=== PATIENT | male | born 1970 | race Hispanic/Latino ===

== ENCOUNTER 2020-10-01 11:55 | Inpatient (IN) | payer MEDICAID, SELFPAY ==
[2020-10-01 12:36] LABS: #Lymphocytes 0.8 thou/uL (1.20-3.40); #Monocytes 0.9 thou/uL (0.11-0.59); #Neutrophils 12.8 thou/uL (1.40-6.50); %Basophils 0.2 % (0.0-1.0); %Eosinophils 0.1 % (0.0-10.0); %Lymphocytes 5.2 % (21.0-51.0); %Monocytes 6.4 % (0.0-10.0); %Neutrophils 88.1 % (42.0-75.0); Hemoglobin 15.3 g/dL (14.0-18.0); Mean Corpuscular HGB CONC 34.8 g/dL (32.0-36.0); Mean Corpuscular Hemoglobin 33.6 pg (27.0-31.0); Mean Corpuscular Volume 96.5 fL (78.0-98.0); Mean Platelet Volume 7.6 fL (7.4-10.4); Platelet Count 234 thou/uL (130-400); RBC Distribution Width 12.1 % (11.5-14.5); Red Blood Cell (RBC) Count 4.55 mill/uL (4.70-6.10); White Blood Cell (WBC) Count 14.5 thou/uL (4.8-10.8)
--- NOTE | 2020-10-01 12:37 | RAD ---
RADIOGRAPH CHEST 1 VIEW: DATE: 10/01/2020 HISTORY: 50-year-old male with altered mental status. Concern for aspiration. FINDINGS: Nonspecific small faint densities at bilateral lung bases. There are no consolidations, pulmonary destiny ma, pneumothorax, or cardiomegaly. The lateral costophrenic angles are sharp. IMPRESSION: No consolidation
[2020-10-01 12:46] LABS: Acetaminophen Less than 6.0 mcg/mL (10.0-30.0); Alcohol Less than 10 mg/dL (Less than 10); CK (CPK) 337 U/L (30-200); Salicylate Less than 8.0 mg/dL (15.0-30.0)
[2020-10-01 12:47] LABS: ALT (SGPT) 25 U/L (8-55); AST (SGOT) 29 U/L (5-34); Albumin 4.1 g/dL (3.5-5.0); Alkaline Phosphatase 114 U/L (40-110); Anion Gap 19 mmol/L (10-20); BUN (Urea Nitrogen) 19 mg/dL (8.4-25.7); Bilirubin, Total 1.2 mg/dL (0.2-1.2); Calc. Creatinine Clearance 0 mL/min (70-130); Calcium 8.8 mg/dL (7.8-10.44); Carbon Dioxide 25 mmol/L (22-29); Chloride 103 mmol/L (98-107); Globulin 3.8 g/dL (2.4-3.5); Glucose 381 mg/dL (70-105); Lipase 5 U/L (8-78); Potassium 4.2 mmol/L (3.5-5.1); Protein, Total 7.9 g/dL (6.0-8.3); Sodium 143 mmol/L (136-145)
[2020-10-01 13:08] LABS: Bilirubin Negative (Negative); Blood, Urine 2+ (Negative); Clarity Clear (Clear); Glucose, Urine (Dipstick) Greater than 1000 mg/dL (Negative); Ketone, Urine 80 mg/dL (Negative); Leukocyte Negative Leu/uL (Negative); Nitrite Negative (Negative); Protein, Urine (Dipstick) 200 mg/dL (Neg-Trace); RBC/HPF 0-3 HPF (0-3); Specific Gravity, Urine 1.036 (1.002-1.036); Squamous Epithelial None Seen HPF (0-3); Urobilinogen Normal mg/dL (Less than 2)
[2020-10-01 13:09] LABS: Bacteria/HPF 1+ HPF (None Seen)
--- NOTE | 2020-10-01 13:14 | CT ---
CT Brain WO Con: 10/01/2020 12:55 PM CLINICAL HISTORY: Altered mental status. IMAGING TECHNIQUE: Multiple CT images were obtained of the brain without IV contrast. COMPARISON: None. FINDINGS: BRAIN: Evidence of acute infarct: There is a large intraparenchymal hemorrhage centered within the left jose lamus measuring 4.5 x 2.7 cm with intraventricular extension. There is mild surrounding vasogenic edema. Evidence of chronic ischemic change:None. Evidence of intracranial hemorrhage: As above Evidence of brain volume loss:None. Evidence of midline shift: There is ivjy-vu-ipwqn midline shift of approximately 2 mm. Ventricles: There is intraventricular extension of the hemorrhage filling the left lateral ventricle with small amount of hemorrhage seen within the third ventricle and anterior horn of the right ventricle. There is some layered hemorrhage also present within the right posterior horn of the later al ventricle. SKULL: Intact. VISUALIZED PARANASAL SINUSES: There is a small air-fluid level within the right maxillary sinus. Mas toid air cells are clear. There is mild mucosal thickening in the ethmoid air cells. MASTOID AIR CELLS: Clear. EXTRACRANIAL SOFT TISSUES: Normal. IMPRESSION: Large intraparenchymal hemorrhage centered within the left thalamus with mild surrounding vasogenic e caprice and tllh-rx-bwhew midline shift of 1.2 mm. There is intraventricular extension of the hemorrhage within the third ventricle and lateral ventricles. Findings called to Dr. Chacon at 1:05 PM on October 01, 2020.
[2020-10-01 13:16] LABS: Amphetamine Not Detected (NotDetected); Barbiturates Screen Not Detected (NotDetected); Benzodiazepine Screen Not Detected (NotDetected); Cocaine Metabolite Screen Not Detected (NotDetected); Medtox Control Line Valid? VALID (VALID); Medtox Reader # READER 4; Methadone Not Detected (NotDetected); Methamphetamine Not Detected (NotDetected); Opiate Screen Not Detected (NotDetected); Oxycodone Screen Not Detected (NotDetected); Phencyclidine (PCP) Not Detected (NotDetected); THC/Cannabinoid Screen Not Detected (NotDetected); Tricyclic Screen Not Detected (NotDetected)
[2020-10-01] MEDS ORDERED: niCARdipine 20MG In NaCl 20 MG/200 ML BAG ONE ×3 (13:19→21:51)
[2020-10-01 13:24] LABS: INR-International Normal Ratio 1.1; PTT 25.8 sec (22.9-36.1); Prothrombin Time 14.7 sec (12.0-14.7)
--- NOTE | 2020-10-01 13:25 | CT ---
CT ANGIOGRAM OF BRAIN WITH CONTRAST AND 3D REFORMATTED IMAGING: DATE: 10/01/2020 1:01 PM HISTORY: Intraparenchymal hemorrhage COMPARISON: Noncontrast CT of the brain dated 09/23/2020 TECHNIQUE: Iodinated IV contrast injected. Bolus chasing technique scan performed through the head. Coronal and sagittal 3-D MIP reconstructions. FINDINGS: Right ICA: There is mild atherosclerotic irregularity involving the petrous segment of the right ICA . There is mumt-jy-usmqdyhu narrowing involving the distal cavernous right ICA likely related to atherosclerotic plaque. Right MCA: Patent. Right CARMEN: Patent. ACOM: Patent. Left ICA: There is moderate narrowing involving the proximal cavernous left ICA likely due to eccent eddie plaque. There is mild irregularity involving the petrous segment of the left ICA. Left MCA: Patent. Left CARMEN: Patent. PCOMs: Patent. Vertebral arteries: The left vertebral artery is diminutive but patent. Right vertebral artery is do minant and patent. Basilar Artery: Patent. patron attendant: Patent. Incidentals: Large intracranial hemorrhage centered within the left thalamus with intraventricular e xtension and mild left right midline shift as detailed in the noncontrast CT of the brain IMPRESSION: 1. Moderate narrowing involving the proximal left cavernous ICA likely related to eccentric plaque. T here is mild atherosclerotic irregularity involving the petrous segment of the left ICA. There is mild irregularity involving the petrous segment of the right ICA with mdwi-iu-udedvymi narrowing of t he distal right cavernous ICA. 2. Large intraparenchymal hemorrhage centered within the left thalamus with intraventricular extensio n and pybu-ru-gjkpt midline shift.
[2020-10-01] MEDS ORDERED: Multivitamins, Adult 10 ML, Thiamine HCl 100 MG, Folic Acid 1 MG in Dextrose 5 %-0.45 %... IV SCH (13:45)
--- NOTE | 2020-10-01 14:14 | PDOC.HHP ---
Hospitalist HPI Found down History of Present Illness: Patient is a 50-year-old male with an unknown past medical history. Patient's brother is here and gives the history. Patient's brother reports that the patient was at work yesterday as normal. Apparently around 7 PM he sent a blank text to one of his friends. His friend responded but the patient never replied again. This morning the patient's brother who lives in the same neighborhood, was driving out to work and noticed his brother's truck was still in the driveway. He had a kaplan to his home so he let himself in and found his brother lying on the ground. He says he was very cold and had incontinence of his bowels. He said the patient was minimally responsive. He tried to put a jacket on him because he was cold and noted that his right arm would not move. He describes it as being in more of a flexion contracture type position and stiff. As stated he does not know the patient's medical history but does report that the patient drinks a large amount of alcohol on a daily basis. ED Course: In the emergency department patient had a CT scan of the head revealing a significant parenchymal bleed with intraventricular hemorrhage. Patient was noted to be significantly hypertensive with a blood pressure of 173/83 peaking at 188/121. He was started on a Cardene drip and his blood pressure has improved. Patient has essentially remained unresponsive. Allergies/Adverse Reactions: Allergy/AdvReac Type Severity Reaction Status Date / Time No Allergy Information Allergy Unverified 10/01/20 12:11 Available Comments: There are no known home medications. Believe the patient likely was not on any. Past History: PMHx: None other than alcohol use PSHx: None known FHx: The patient's brother reports that their mother has hypertension. Their father about 7 years ago but he does not know details. Social: Patient lives alone. He is single. His brother is here giving his reported history. As stated he reports the patient drinks a great deal of beer every day. He says the patient smokes cigars for very brief period of time but is not otherwise a smoker. He is unaware of any drug history. 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 Hospitalist LUCINDA ROS ROS unobtainable: due to mental status Hospitalist Exam General - other findings: Unresponsive. Spontaneous breathing. Eye - other findings: Pupils are symmetric and constrict Neck: supple, symmetric, no JVD Heart: RRR, no murmur, no gallops, no rubs, normal peripheral pulses Respiratory: CTAB, no wheezes, no rales, no ronchi, normal chest expansion, no tachypnea, normal percussion Gastrointestinal: soft, non-tender, non-distended, normal bowel sounds, no palpable masses, no hepatomegaly, no splenomegaly, no bruit Extremities: no cyanosis, no clubbing, no edema Skin: normal turgor, no lesions, no rashes Neurological - other findings: Unresponsive. Hospitalist Results Result Diagrams: 10/01/20 12:10/01/20 12:21 Lab results: Laboratory Last Values WBC 14.5 thou/uL (4.8-10.8) H 10/01/20 12: RBC 4.55 mill/uL (4.70-6.10) L 10/01/20 12: Hgb 15.3 g/dL (14.0-18.0) 10/01/20 12: Hct 43.9 % (42.0-52.0) 10/01/20 12:21 MCV 96.5 fL (78.0-98.0) 10/01/20 12: MCH 33.6 pg (27.0-31.0) H 10/01/20 12: MCHC 34.8 g/dL (32.0-36.0) 10/01/20 12: RDW 12.1 % (11.5-14.5) 10/01/20 12: Plt Count 234 thou/uL (130-400) 10/01/20 12:21 MPV 7.6 fL (7.4-10.4) 10/01/20 12: Neutrophils % 88.1 % (42.0-75.0) H 10/01/20 12: Lymphocytes % 5.2 % (21.0-51.0) L 10/01/20 12: Monocytes % 6.4 % (0.0-10.0) 10/01/20 12: Eosinophils % 0.1 % (0.0-10.0) 10/01/20 12: Basophils % 0.2 % (0.0-1.0) 10/01/20 12:21 Neutrophils # 12.8 thou/uL (1.40-6.50) H 10/01/20 12:21 Lymphocytes # 0.8 thou/uL (1.20-3.40) L 10/01/20 12:21 Monocytes # 0.9 thou/uL (0.11-0.59) H 10/01/20 12:21 Eosinophils # 0.0 thou/uL (0.0-0.7) 10/01/20 12: Basophils # 0.0 thou/uL (0.0-0.2) 10/01/20 12:21 PT 14.7 sec (12.0-14.7) 10/01/20 12: INR 1.1 10/01/20 12:21 APTT 25.8 sec (22.9-36.1) 10/01/20 12:21 Sodium 143 mmol/L (136-145) 10/01/20 12:21 Potassium 4.2 mmol/L (3.5-5.1) 10/01/20 12:21 Chloride 103 mmol/L (98-107) 10/01/20 12:21 Carbon Dioxide 25 mmol/L (22-29) 10/01/20 12:21 Anion Gap 19 mmol/L (10-20) 10/01/20 12:21 BUN 19 mg/dL (8.4-25.7) 10/01/20 12:21 Creatinine 0.84 mg/dL (0.7-1.3) 10/01/20 12:21 Estimated GFR (MDRD) Greater than 90 10/01/20 12:21 Glucose 381 mg/dL (70-105) H 10/01/20 12:21 Calcium 8.8 mg/dL (7.8-10.44) 10/01/20 12:21 Total Bilirubin 1.2 mg/dL (0.2-1.2) 10/01/20 12:21 AST 29 U/L (5-34) 10/01/20 12:21 ALT 25 U/L (8-55) 10/01/20 12:21 Alkaline Phosphatase 114 U/L (40-110) H 10/01/20 12:21 Ammonia 40 umol/L (18-72) 10/01/20 12:21 Creatine Kinase 337 U/L (30-200) H 10/01/20 12:21 Troponin I Less than 0.010 ng/mL (< 0.028) 10/01/20 12: Serum Total Protein 7.9 g/dL (6.0-8.3) 10/01/20 12: Albumin 4.1 g/dL (3.5-5.0) 10/01/20 12: Globulin 3.8 g/dL (2.4-3.5) H 10/01/20 12:21 Albumin/Globulin Ratio 1.1 g/dL (1.2-2.2) L 10/01/20 12: Lipase 5 U/L (8-78) L 10/01/20 12: TSH 3rd Generation 0.2656 uIU/mL (0.35-4.94) L 10/01/20 12:21 Urine Color Light-Yellow (Yellow) 10/01/20 12:45 Urine Clarity Clear (Clear) 10/01/20 12:45 Urine pH 6.0 (5.0-9.0) 10/01/20 12:45 Ur Specific [place] 1.036 (1.002-1.036) 10/01/20 12:45 Urine Protein 200 mg/dL (Neg-Trace) A 10/01/20 12:45 Urine Glucose (UA) Greater than 1000 mg/dL (Negative) A 10/01/20 12:45 Urine Ketones 80 mg/dL (Negative) A 10/01/20 12:45 Urine Blood 2+ (Negative) A 10/01/20 12:45 Urine Nitrite Negative (Negative) 10/01/20 12:45 Urine Bilirubin Negative (Negative) 10/01/20 12:45 Urine Urobilinogen Normal mg/dL (Less than 2) 10/01/20 12:45 Ur Leukocyte Esterase Negative Papo/uL (Negative) 10/01/20 12:45 Urine RBC 0-3 HPF (0-3) 10/01/20 12:45 Urine WBC 4-6 HPF (0-3) A 10/01/20 12:45 Ur Squamous Epith Cells None Seen HPF (0-3) 10/01/20 12:45 Urine Bacteria 1+ HPF (None Seen) A 10/01/20 12:45 Hyaline Casts 0-3 LPF (0-3) 10/01/20 12:45 Salicylates Less than 8.0 mg/dL (15.0-30.0) L 10/01/20 12:21 Urine Opiates Screen Not Detected (NotDetected) 10/01/20 12:45 Ur Oxycodone Screen Not Detected (NotDetected) 10/01/20 12:45 Urine Methadone Screen Not Detected (NotDetected) 10/01/20 12:45 Ur Propoxyphene Screen Not Detected (NotDetected) 10/01/20 12:45 Acetaminophen Less than 6.0 mcg/mL (10.0-30.0) L 10/01/20 12:21 Ur Barbiturates Screen Not Detected (NotDetected) 10/01/20 12:45 Ur Tricyclics Screen Not Detected (NotDetected) 10/01/20 12:45 Ur Phencyclidine Scrn Not Detected (NotDetected) 10/01/20 12:45 Ur Amphetamines Screen Not Detected (NotDetected) 10/01/20 12:45 U Methamphetamines Scrn Not Detected (NotDetected) 10/01/20 12:45 U Benzodiazepines Scrn Not Detected (NotDetected) 10/01/20 12:45 U Cocaine Metab Screen Not Detected (NotDetected) 10/01/20 12:45 U Cannabinoids Screen Not Detected (NotDetected) 10/01/20 12:45 Drug Screen Comment () 10/01/20 12:45 Plasma Alcohol Less than 10 mg/dL (Less than 10) 10/01/20 12:21 CT scan - head Status: image reviewed by me, report reviewed by me Additional Comments: Large intraparenchymal hemorrhage centered within the left thalamus with mild surrounding vasogenic edema and cfiv-fw-[id number] midline shift of 1.2 mm. There is intraventricular extension of the hemorrhage within the third ventricle and lateral ventricles. Other Status: report reviewed by me Additional Comments: CTA head neck 1. Moderate narrowing involving the proximal left cavernous ICA likely related to eccentric plaque. There is mild atherosclerotic irregularity involving the petrous segment of the left ICA. There is mild irregularity involving the petrous segment of the right ICA with ajmi-xm-cabzqxyz narrowing of the distal right cavernous ICA. 2. Large intraparenchymal hemorrhage centered within the left thalamus with intraventricular extension and qzgx-sx-dbadv midline shift. Chest x-ray Status: report reviewed by me Hospitalist H&P A/P (1) ICH (intracerebral hemorrhage) Code(s): I61.9 - NONTRAUMATIC INTRACEREBRAL HEMORRHAGE, UNSPECIFIED Status: Acute (2) Alcohol abuse Code(s): F10.10 - ALCOHOL ABUSE, UNCOMPLICATED Status: Acute (3) Hyperglycemia Code(s): R73.9 - HYPERGLYCEMIA, UNSPECIFIED Status: Acute (4) Leukocytosis Code(s): D72.829 - ELEVATED WHITE BLOOD CELL COUNT, UNSPECIFIED Status: Acute Plan: ICH: Also has some intraventricular bleed with 1.2 mm of midline shift. Neurosurgery consulted. ER physician has reached out to neurosurgery who is in a case now. We will continue with Cardene drip in order to maintain adequate blood pressure control. IV fluids as he will remain n.p.o. Stroke team consult. Avoid anticoagulation. Alcohol abuse: Patient's brother reports that patient consumes a significant amount of beer daily. We will give folate and thiamine supplementation. May need to monitor for evidence of physical withdrawal symptoms. He may be at higher risk of seizure due to the alcohol and the bleed. Hyperglycemia: There is no history of diabetes mellitus that we are aware of for this patient. We will perform Accu-Cheks and sliding scale insulin. Leukocytosis: Likely reactive to the bleed. No evidence of infection. No antibiotics will be initiated. DVT prophylaxis: Avoid anticoagulation. SCDs. PUD prophylaxis: Pepcid IV twice daily.
[2020-10-01] MEDS ORDERED: Dextrose 5% in Water 1,000 ML IV PRN (14:27)
[2020-10-01] MEDS ORDERED: Dextrose 50% Abboject 50 ML SYRINGE SLOW IVP PRN (14:27)
[2020-10-01 14:43] LABS: SARS-CoV-2 NAA Rapid Test Not Detected (NotDetected)
[2020-10-01] MEDS ORDERED: Thiamine HCl 200 MG/2 ML VIAL SLOW IVP SCH (15:00)
[2020-10-01] MEDS: Sodium Chloride 0.9% 1,000 ML IV SCH (15:08)
[2020-10-01] MEDS ORDERED: Famotidine/PF 20 mg/2ml Vial ONE (20:51)
[2020-10-01] MEDS: Famotidine/PF 20 mg/2ml Vial SLOW IVP SCH (20:59)
[2020-10-01] MEDS: niCARdipine 25 MG in Sodium Chloride 0.9% 250 ML 240 ML IVPB PRN (21:50)
--- NOTE | 2020-10-01 23:29 | CON ---
DATE OF CONSULTATION: 10/01/2020 HISTORY OF PRESENT ILLNESS: Mr. Jarrett is a 50-year-old gentleman who was found down by his brother today around 11 a.m. Brother states that his brother (the patient) soiled himself. He was very concerned about his brother due to not replying to his text or phone calls, so he went to see what was going on. Head CT indicated a significant parenchymal bleed with intraventricular hemorrhage. ED doctor indicated that the BP was noted to be 270. Cardene drip was then started in which he was able to get his BP down to 175. REVIEW OF SYSTEMS: Not obtainable due to mental status. PAST MEDICAL HISTORY: Unable to obtain. PAST SURGICAL HISTORY: Unable to obtain. SOCIAL HISTORY: Unable to obtain. Brother states that he has a history of alcoholism. MEDICATIONS: No recorded medications. ALLERGIES: NO KNOWN DRUG ALLERGIES, UNCONFIRMED. PHYSICAL EXAMINATION: VITALS: BP 188/121, pulse 100, temperature 98.6. GENERAL: Unresponsive with spontaneous breathing. HEENT: Eyes, pupils are symmetric and constricted. Not reactive to light. NECK: Soft, supple. No masses are noted. NEUROLOGICAL: High opening to voice. Verbal response, confused. Motor response, withdrawals to pain. LABORATORY DATA: WBC 14.5, platelets 234. PT 14.7, INR 1.1, PTT 25.8. Sodium 143. Toxicology negative. Urine glucose greater than 1000. IMAGING DATA: Head CT, significant parenchymal bleed with intraventricular hemorrhage. ASSESSMENT: 1. Intraparenchymal hemorrhage. 2. Alcohol abuse. 3. Hypertension. 4. Glucose in the urine. PLAN: Continue Cardene drip. BP control, SBP less than [address] of the brain in the morning. If scan shows no improvement or change, we will transfer care to Medicine Service. Supportive care. No intracranial surgery at this time. We will have him follow up in 2 to 3 weeks in our clinic and repeat scan prior to the visit. Job ID: [id number] [facility]
[2020-10-02 05:02] LABS: #Basophils 0.1 thou/uL (0.0-0.2); #Lymphocytes 1.7 thou/uL (1.20-3.40); #Monocytes 1.1 thou/uL (0.11-0.59); #Neutrophils 8.7 thou/uL (1.40-6.50); %Basophils 0.6 % (0.0-1.0); %Eosinophils 0.3 % (0.0-10.0); %Lymphocytes 14.8 % (21.0-51.0); %Monocytes 9.7 % (0.0-10.0); %Neutrophils 74.7 % (42.0-75.0); Hemoglobin 14.2 g/dL (14.0-18.0); Mean Corpuscular HGB CONC 33.7 g/dL (32.0-36.0); Mean Corpuscular Hemoglobin 32.7 pg (27.0-31.0); Mean Platelet Volume 7.7 fL (7.4-10.4); Platelet Count 212 thou/uL (130-400); Red Blood Cell (RBC) Count 4.33 mill/uL (4.70-6.10); White Blood Cell (WBC) Count 11.7 thou/uL (4.8-10.8)
[2020-10-02] MEDS: Sodium Chloride 0.9% 1,000 ML IV SCH ×2 (05:31→21:04)
[2020-10-02 05:40] LABS: Hemoglobin A1c 10.4 % (4.0-6.0)
[2020-10-02 05:53] LABS: Anion Gap 15 mmol/L (10-20); BUN (Urea Nitrogen) 17 mg/dL (8.4-25.7); CK (CPK) 678 U/L (30-200); Calc. Creatinine Clearance 0 mL/min (70-130); Calcium 8.5 mg/dL (7.8-10.44); Carbon Dioxide 23 mmol/L (22-29); Chloride 109 mmol/L (98-107); Glucose 254 mg/dL (70-105); Potassium 3.5 mmol/L (3.5-5.1); Sodium 143 mmol/L (136-145)
[2020-10-02] MEDS: niCARdipine 25 MG in Sodium Chloride 0.9% 250 ML 240 ML IVPB PRN (05:57)
--- NOTE | 2020-10-02 07:24 | CT ---
PRELIMINARY REPORT/[facility]/EMERGENCY AFTER HOURS PROCEDURE: EXAM: CT Head Without Intravenous Contrast. CLINICAL HISTORY: F/U ICH TECHNIQUE: Axial computed tomography images of the head/brain without intravenous contrast. COMPARISON: 10/01/2020 Findings: Ventriculomegaly is not significantly changed. There is approximately 6 mm of lsod-do-avtfd shift at the level of the foramen of Garcia axial image 30. Volume of intraventricular hemorrhage is unchanged. Left hemorrhage measuring 4.2 x 2.3 cm is not significantly changed. No new intracrania l hemorrhage. No transtentorial or tonsillar herniation. Mild paranasal sinus disease is greatest right maxillary sinus is. The mastoid air cells. Normal spherical shape of the globes. Retrobulbar fa t is unremarkable. IMPRESSION: Intraventricular hemorrhage and ventriculomegaly are not significantly changed. Clinical correlation for hydrocephalus is requested. Left thalamic hemorrhage measuring 4.2 x 2.3 cm is slightly smaller. No new intracranial hemorrhage. No transtentorial or tonsillar herniation. ELECTRONICALLY SIGNED BY: Uriah Solis MD Oct 02, 2020 5:51:39 AM DEPUTY REGISTER OF DEEDS FINAL REPORT HEAD CT WITHOUT CONTRAST: HISTORY: Follow-up intracranial hemorrhage. COMPARISON: 10/01/2020. FINDINGS: Hemorrhage: Several intracranial hemorrhages centered in the left deep pugh matter structures with st able intraventricular hemorrhage. There is a small component of subarachnoid blood involving the left and right sulci. Brain parenchyma: Cortical pugh-white matter differentiation is preserved. No mass effect or midline shift. Basilar cisterns are patent.Stable hypoattenuation adjacent to the left deep pugh matter structure infarct suggesting edema. Stable oxys-nj-dqoiu subfalcine herniation. Ventricular system: Ventricles and sulci are patent and symmetric. Calvarium: Intact. Sinuses and mastoid air cells: Mild mucosal disease of the paranasal sinuses. IMPRESSION: 1. This report is in agreement with initial report by [facility]. 2. Stable intracranial hemorrhage. Transcribed Date/Time: 10/02/2020 7:52 AM
--- NOTE | 2020-10-02 07:41 | PRG ---
DATE OF SERVICE: 10/02/2020 I personally interviewed and examined the patient, agree with documentation of Delta Silva PA-C, dated 10/01/2020. Briefly, Amari Blanco is a 50-year-old gentleman found down by his brother yesterday and brought to the emergency department. He had some change in his mental status. CT scan of the brain showed a left thalamic and midbrain hemorrhage spontaneous. It was treated as a hypertensive hemorrhage and he has been observed carefully overnight. The ICU has been full and he has been in the ER since his arrival. No events were reported overnight. Blood pressure is in the 130s when I saw him this morning. He is on a Cardene drip. Mr. Kolby Blanco wakes. He tells me he speaks Spanish. He says a word or two. He does follow commands. He is hemiplegic on the right or at least densely hemiparetic. The left side was better. The sodium this morning is 143. The white blood cell count is 11.7, fluids are going at a high rate of 175 mL an hour total. This morning, CT scan shows stability of the hemorrhage. There is no obvious development of hydrocephalus, although the ventricles may be slightly larger than yesterday. Clinically, Mr. Kolby Blanco is stable from his admission. His blood pressure is being controlled with IV medication. He will need to be watched through the weekend to ensure that any santa hematoma swelling does not obstruct CSF. If he makes it to Monday in stable neurological condition, he can be transferred to rehab for recovery from this hemorrhagic stroke. Job ID: [id number] [facility]
[2020-10-02] MEDS ORDERED: niCARdipine 20MG In NaCl 20 MG/200 ML BAG ONE (08:51)
[2020-10-02] MEDS ORDERED: Famotidine/PF 20 mg/2ml Vial ONE ×2 (10:20→21:08)
[2020-10-02] MEDS: Famotidine/PF 20 mg/2ml Vial SLOW IVP SCH ×2 (10:23→21:15)
[2020-10-02] MEDS ORDERED: Morphine 2 MG/ML VIAL SLOW IVP PRN (11:01)
--- NOTE | 2020-10-02 13:45 | PDOC.HOSPP ---
- Subjective Encounter Date: 10/02/20 Encounter Time: 13:43 Subjective: patient seen on f/u for ich. currently on cardene drip to control b/p is still npo awaiting for speech evaluation. patient has wax and weaning of orientation. is complaining of headache is able to follow simple instruction - Objective Vital Signs & Weight: Vital Signs (12 hours) Temp Pulse Resp BP BP Pulse Ox 10/02/20 12:04 126/76 10/02/20 11:00 99.0 F 90 16 125/70 95 10/02/20 10:00 94 16 119/77 96 10/02/20 09:00 82 15 117/66 98 10/02/20 08:00 83 15 132/65 96 10/02/20 07:05 98.7 F 87 15 129/73 99 Result Diagrams: 10/02/20 04:40 10/02/20 04:40 Additional Labs: Accuchecks 10/02/20 10/02/20 10/01/20 07:49 01:23 21:19 POC Glucose 283 H 259 H 307 H 10/01/20 12:04 POC Glucose 410 H Hospitalist ROS - Review of Systems ROS unobtainable: due to mental status - Medication Medications: Active Medications Generic Name Dose Route Start Last Admin Trade Name Freq PRN Reason Stop Dose Admin Famotidine 20 mg 10/01/20 21:00 10/02/20 10:23 Famotidine/Pf 20 Mg/2ml Vial SLOW IVP 20 mg Q12HR BRII Administration Sodium Chloride 1,000 mls @ 75 mls/hr 10/01/20 14:00 10/02/20 05:31 Normal Saline 0.9% IV 1,000 mls .[id number] BRII Administration Nicardipine HCl 25 mg/ Sodium 250 mls @ 0 mls/hr 10/01/20 13:59 10/02/20 05:57 Chloride IVPB 250 mls INF PRN Administration SBP > 140 Protocol Titrate Hospitalist Exam Vitals: Vital Signs (12 hours) Temp Pulse Resp BP BP Pulse Ox 10/02/20 12:04 126/76 10/02/20 11:00 99.0 F 90 16 125/70 95 10/02/20 10:00 94 16 119/77 96 10/02/20 09:00 82 15 117/66 98 10/02/20 08:00 83 15 132/65 96 10/02/20 07:05 98.7 F 87 15 129/73 99 General Appearance: NAD, awake alert Eye: PERRL, anicteric sclera ENT: normocephalic atraumatic, no oropharyngeal lesions Neck: supple, symmetric, no JVD, no thyromegaly Heart: RRR, no murmur, no gallops Respiratory: CTAB, no wheezes, no rales Gastrointestinal: soft, non-tender, non-distended Extremities: no cyanosis, no clubbing, no edema Skin: normal turgor, no lesions, no rashes Neurological: hemiplegia Musculoskeletal: normal tone, normal strength Psychiatric: normal affect, oriented to person Hosp A/P (1) ICH (intracerebral hemorrhage) Code(s): I61.9 - NONTRAUMATIC INTRACEREBRAL HEMORRHAGE, UNSPECIFIED Status: Acute (2) Alcohol abuse Code(s): F10.10 - ALCOHOL ABUSE, UNCOMPLICATED Status: Acute (3) Hyperglycemia Code(s): R73.9 - HYPERGLYCEMIA, UNSPECIFIED Status: Acute (4) Leukocytosis Code(s): D72.829 - ELEVATED WHITE BLOOD CELL COUNT, UNSPECIFIED Status: Acute - Plan ICH - has some intraventricular bleed with 1.2 mm of midline shift. - Neurosurgery consulted. - recommended observation over the weekend - on cardene drip, will continue - IV fluids as he will remain n.p.o until seen be speech - Avoid anticoagulation - pt / ot / speech Alcohol abuse - hx of alcohol abuse - folate and thiamine supplementation. - monitor withdrawal / seizures Hyperglycemia - a1c 10 - acc+ss Leukocytosis - Likely reactive to the bleed. - No evidence of infection.
[2020-10-02] MEDS: Thiamine HCl 200 MG/2 ML VIAL SLOW IVP SCH (14:57)
[2020-10-02] MEDS: niCARdipine 50 MG in Sodium Chloride 0.9% 250 ML 230 ML IVPB PRN (23:45)
[2020-10-03] MEDS: Sodium Chloride 0.9% 1,000 ML IV SCH (06:36)
[2020-10-03] MEDS: HumaLOG 300 UNITS/3 ML VIAL SC PRN ×3 (06:37→15:59)
[2020-10-03] MEDS: niCARdipine 25 MG in Sodium Chloride 0.9% 250 ML 240 ML IVPB PRN (08:40)
[2020-10-03] MEDS: Famotidine/PF 20 mg/2ml Vial SLOW IVP SCH ×2 (10:04→23:27)
[2020-10-03] MEDS ORDERED: Electrolyte Replacement Protocol 1 EACH FS SCH (10:30)
[2020-10-03 11:22] LABS: #Lymphocytes 1.3 thou/uL (1.20-3.40); #Monocytes 1.3 thou/uL (0.11-0.59); #Neutrophils 13.1 thou/uL (1.40-6.50); %Basophils 0.2 % (0.0-1.0); %Eosinophils 0.2 % (0.0-10.0); %Lymphocytes 8.4 % (21.0-51.0); %Neutrophils 83.2 % (42.0-75.0); Hemoglobin 14.6 g/dL (14.0-18.0); Mean Corpuscular HGB CONC 34.3 g/dL (32.0-36.0); Mean Corpuscular Hemoglobin 33.9 pg (27.0-31.0); Mean Corpuscular Volume 98.7 fL (78.0-98.0); Mean Platelet Volume 7.7 fL (7.4-10.4); Platelet Count 183 thou/uL (130-400); RBC Distribution Width 11.8 % (11.5-14.5); White Blood Cell (WBC) Count 15.8 thou/uL (4.8-10.8)
[2020-10-03] MEDS: Dextrose 5 % And 0.9 % NaCl 1,000 ML IV SCH (11:41)
[2020-10-03 11:45] LABS: ALT (SGPT) 20 U/L (8-55); AST (SGOT) 26 U/L (5-34); Albumin 3.3 g/dL (3.5-5.0); Alkaline Phosphatase 90 U/L (40-110); Anion Gap 19 mmol/L (10-20); BUN (Urea Nitrogen) 21 mg/dL (8.4-25.7); Bilirubin, Total 1.2 mg/dL (0.2-1.2); Calc. Creatinine Clearance 122 mL/min (70-130); Calcium 8.5 mg/dL (7.8-10.44); Carbon Dioxide 17 mmol/L (22-29); Chloride 113 mmol/L (98-107); Globulin 3.8 g/dL (2.4-3.5); Glucose 223 mg/dL (70-105); Magnesium 2.2 mg/dL (1.6-2.6); Phosphorus 2.4 mg/dL (2.3-4.7); Potassium 3.5 mmol/L (3.5-5.1); Protein, Total 7.1 g/dL (6.0-8.3); Sodium 145 mmol/L (136-145)
--- NOTE | 2020-10-03 11:48 | PRG ---
DATE OF SERVICE: 10/03/2020 Mr. Jarrett is hemiplegic in the right side and localizes in the left side. He does open his eyes weakly to voice. He appears to be somewhat somnolent, however, and a head CT had not been done yet this morning. We will get this as he is at high risk for obstructive hydrocephalus. I should note that his sodium yesterday was 143. His most recently recorded blood pressure was normal at 123/72. We will follow up on the head CT to make sure he does not need an EVD. Job ID: [id number]
--- NOTE | 2020-10-03 12:33 | CT ---
CT BRAIN NONCONTRAST: DATE: 10/03/2020 HISTORY: 50-year-old male follow-up intracranial hemorrhage COMPARISON: 10/02/2020 FINDINGS: Large intra-axial hematoma centered in left thalamus, spilling into the third ventricle,, with large intraventricular hematoma throughout most of the left lateral ventricle, and posterior dependent portions of right lateral ventricle. Mild subfalcine herniation. Mild to moderate ventriculomegaly suggestive of partial noncommunicating obstructive hydrocephalus. New development of tiny faint amount of subarachnoid hemorrhage in the right parietal sulci laterally . New tiny tiny focus in the right posterior paramedian upper occipital gyrus close to the parieto-occi pital fissure, either cortical or subarachnoid. IMPRESSION: 1) new small amount of right lateral parietal subarachnoid hemorrhage. 2) new tiny focus of right paramedian far posterior upper occipital, probably cortex, less likely sub arachnoid. 3) no significant interval change in the large left thalamic intra-axial hematoma and significant vol ume of intraventricular hematoma, left greater than right. 4) no interval change in the mild noncommunicating obstructive hydrocephalus.
[2020-10-03] MEDS ORDERED: Potassium Chloride 40 MEQ in Sodium Chloride 0.9% 250 ML 250 ML IVPB SCH (13:00)
--- NOTE | 2020-10-03 13:50 | PDOC.HOSPP ---
- Subjective Encounter Date: 10/03/20 Encounter Time: 11:00 non-verbal Subjective: Patient seen and examined for intracranial bleed. Somnolent. No new focal deficit per RN. Remains on Cardene drip. - Objective Vital Signs & Weight: Vital Signs (12 hours) Temp Pulse Ox 10/03/20 07:10 96 10/03/20 05:00 98.7 F 10/03/20 02:10 97 Weight Admit Weight 151 lb 0.266 oz Weight 151 lb 14.376 oz Most Recent Monitor Data Heart Rate from ECG 84 NIBP 125/71 NIBP BP-Mean 89 Respiration from ECG 17 SpO2 96 I&O: 10/02/20 10/03/20 10/04/20 06:59 06:59 06:59 Intake Total 775.0 Output Total 500 Balance 275.0 Result Diagrams: 10/03/20 11:14 10/03/20 11:14 Additional Labs: Accuchecks 10/03/20 10/03/20 10/02/20 10:27 06:30 23:23 POC Glucose 208 H 210 H 237 H 10/02/20 10/02/20 20:30 14:25 POC Glucose 241 H 248 H Abnormal Lab Results - Last 48 hrs 10/02/20 04:40: Chloride 109 H, Creatinine 0.68 L, Creatine Kinase 678 H 10/02/20 04:40: WBC 11.7 H, RBC 4.33 L, MCH 32.7 H, Lymphocytes % 14.8 L, Neutrophils # 8.7 H, Monocytes # 1.1 H 10/02/20 04:40: Hemoglobin A1c 10.4 H 10/03/20 11:14: Chloride 113 H, Carbon Dioxide 17 L, Creatinine 0.69 L, Albumin 3.3 L, Globulin 3.8 H, Albumin/Globulin Ratio 0.9 L 10/03/20 11:14: WBC 15.8 H, RBC 4.30 L, MCV 98.7 H, MCH 33.9 H, Neutrophils % 83.2 H, Lymphocytes % 8.4 L, Neutrophils # 13.1 H, Monocytes # 1.3 H EKG Reviewed by me: Yes (Sinus rhythm on telemetry) Hospitalist ROS - Review of Systems ROS unobtainable: due to mental status - Medication Medications: Active Medications Generic Name Dose Route Start Last Admin Trade Name Freq PRN Reason Stop Dose Admin Famotidine 20 mg 10/01/20 21:00 10/03/20 10:04 Famotidine/Pf 20 Mg/2ml Vial SLOW IVP 20 mg Q12HR BRII Administration Nicardipine HCl 25 mg/ Sodium 250 mls @ 0 mls/hr 10/01/20 13:59 10/03/20 08:40 Chloride IVPB 250 mls INF PRN Administration SBP > 140 Protocol Titrate Nicardipine HCl 50 mg/ Sodium 250 mls @ 0 mls/hr 10/02/20 23:17 10/02/20 23:45 Chloride IVPB 250 mls INF PRN Administration SBP > 140 Protocol Titrate Dextrose/Sodium Chloride 1,000 mls @ 75 mls/hr 10/03/20 10:30 10/03/20 11:41 D5 0.9% Ns IV 1,000 mls .[id number] BRII Administration Potassium Chloride 40 meq/ 270 mls @ 67.5 mls/hr 10/03/20 13:00 10/03/20 13:40 Sodium Chloride IVPB 10/03/20 16:59 270 mls NOW BRII Administration Insulin Human Lispro 0 units 10/01/20 14:27 10/03/20 10:29 Humalog 300 Units/3 Ml Vial SC 3 unit .MILD SLIDING SCALE PRN Administration Mild Correctional Scale Thiamine HCl 100 mg 10/02/20 15:00 10/02/20 14:57 Thiamine Hcl 200 Mg/2 Ml Vial SLOW IVP 100 mg Q24HR BRII Administration Hospitalist Exam Vitals: Vital Signs (12 hours) Temp Pulse Ox 10/03/20 07:10 96 10/03/20 05:00 98.7 F 10/03/20 02:10 97 Weight Admit Weight 151 lb 0.266 oz Weight 151 lb 14.376 oz Most Recent Monitor Data Heart Rate from ECG 84 NIBP 125/71 NIBP BP-Mean 89 Respiration from ECG 17 SpO2 96 General Appearance: NAD Neck: supple, no JVD Heart: RRR, no gallops Respiratory: no wheezes, no ronchi Gastrointestinal: soft, normal bowel sounds, no guarding, no rigidity Extremities: no cyanosis, no clubbing Neurological - other findings: Neuro/psychexam limited due to current mentation Musculoskeletal: generalized weakness Hosp A/P - Plan 50-year-old male with unknown past history was brought in on 10/01 to the emergency room with altered mentation. CT scan of the brain was consistent with large intraparenchymal hemorrhage centered within the left thalamus with mild surrounding vasogenic edema with midline shift of 1.[address] angiogram of the brain was negative for aneurysm. Repeat CT brain next morning showed similar findings. He was started on Cardene drip. Impression: Encephalopathy due to large left thalamic bleed with midline shiftsuspected due to uncontrolled hypertension Uncontrolled diabetes mellitus type 2 with A1c of 10.4 History of alcohol abuse Hypokalemia Plan: Change IV fluid to D5 NS. Add NPH. Continue Cardene drip. Replace potassium. Recheck CK in a.m. Continue thiamine. Continue GI prophylaxis. A.m. labs. Patient will probably need NG tube for oral antihypertensives. Continue other medications as above. I attempted to call the family with no answer.
[2020-10-03] MEDS: Thiamine HCl 200 MG/2 ML VIAL SLOW IVP SCH (15:54)
[2020-10-03] MEDS ORDERED: NPH, Human Insulin Isophane 300 UNIT/3 ML VIAL SC SCH (16:45)
--- NOTE | 2020-10-03 16:52 | PDOC.EEG ---
Neurology EEG Report - Report Report: This EEG was performed using 24 channel [employer] video EEG machine with 24 disc electrodes. This was an extended 2 hours 7 minutes of inpatient video EEG recording. Digital analysis of the EEG was done for spike and seizure detection which revealed no abnormalities. Background: The posterior background rhythm is not observed. Hyperventilation: Not performed. Photic Stimulation: No significant response. Sleep: No stage change is observed. EEG Diagnosis: Generalized irregular theta delta activity seen during the recording. Absence of posterior background rhythm. Clinical Interpretation: This EEG is consistent with moderate generalized nonspecific cerebral dysfunction. No electrographic seizures captured during the recording
[2020-10-03] MEDS: niCARdipine 50 MG in Sodium Chloride 0.9% 250 ML 230 ML IVPB PRN (18:44)
[2020-10-03] MEDS: NPH, Human Insulin Isophane 300 UNIT/3 ML VIAL SC SCH (23:27)
--- NOTE | 2020-10-04 00:40 | CON ---
NEUROLOGY CONSULTATION DATE OF CONSULTATION: REASON FOR CONSULTATION: Altered mental status. HISTORY OF PRESENT ILLNESS: Mr. Amari Blanco is a 50-year-old male with medical history significant for alcohol abuse, presented to the emergency department after being found down. History is obtained from review of the medical records. Per patient's brother, he was at work one day prior to the admission on 10/01/2020 and around 7 p.m., he had sent a blank text to one of his friends, a friend responded, but he never replied again. On the morning of 10/01/2020, the brother who lives in the same neighborhood was driving out to work and noted the patient's tractor was still in the driveway. He had kaplan to his home, so he let himself in and found his brother lying on the floor, floor extremely cool and he was incontinent and he had bowel incontinence and minimally responsive. He tried to put a jacket on him and his right arm did not move, so he decided to bring him to the emergency room for further evaluation. In the emergency room, head CT was done, which showed significant parenchymal bleed with intraventricular hemorrhage. He was also noticed to be in hypertensive emergency and was started on a Cardene drip and admitted for further evaluation. Neurosurgery was contacted and recommended strict blood pressure control. PAST MEDICAL HISTORY: Alcohol abuse. PAST SURGICAL HISTORY: Not known. FAMILY HISTORY: Hypertension. SOCIAL HISTORY: The patient lives alone. He is single. There is history of alcohol abuse. 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 He does smoke. REVIEW OF SYSTEMS: Unobtainable due to the patient's mental status. Vital Signs (12 hours) Temp Pulse Ox 10/03/20 07:10 96 10/03/20 05:00 98.7 F 10/03/20 02:10 97 Weight Admit Weight 151 lb 0.266 oz Weight 151 lb 14.376 oz Most Recent Monitor Data Heart Rate from ECG 84 NIBP 125/71 NIBP BP-Mean 89 Respiration from ECG 17 SpO2 96 I&O: 10/02/20 10/03/20 10/04/20 06:59 06:59 06:59 Intake Total 775.0 Output Total 500 Balance 275.0 Additional Labs: Accuchecks 10/03/20 10/03/20 10/02/20 10:27 06:30 23:23 POC Glucose 208 H 210 H 237 H 10/02/20 10/02/20 20:30 14:25 POC Glucose 241 H 248 H Abnormal Lab Results - Last 48 hrs 10/02/20 04:40: Chloride 109 H, Creatinine 0.68 L, Creatine Kinase 678 H 10/02/20 04:40: WBC 11.7 H, RBC 4.33 L, MCH 32.7 H, Lymphocytes % 14.8 L, Neutrophils # 8.7 H, Monocytes # 1.1 H 10/02/20 04:40: Hemoglobin A1c 10.4 H 10/03/20 11:14: Chloride 113 H, Carbon Dioxide 17 L, Creatinine 0.69 L, Albumin 3.3 L, Globulin 3.8 H, Albumin/Globulin Ratio 0.9 L 10/03/20 11:14: WBC 15.8 H, RBC 4.30 L, MCV 98.7 H, MCH 33.9 H, Neutrophils % 83.2 H, Lymphocytes % 8.4 L, Neutrophils # 13.1 H, Monocytes # 1.3 H EKG Reviewed by me: Yes (Sinus rhythm on telemetry) Active Medications Generic Name Dose Route Start Last Admin Trade Name Freq PRN Reason Stop Dose Admin Famotidine 20 mg 10/01/20 21:00 10/03/20 10:04 Famotidine/Pf 20 Mg/2ml Vial SLOW IVP 20 mg Q12HR BRII Administration Nicardipine HCl 25 mg/ Sodium 250 mls @ 0 mls/hr 10/01/20 13:59 10/03/20 08:40 Chloride IVPB 250 mls INF PRN Administration SBP > 140 Protocol Titrate Nicardipine HCl 50 mg/ Sodium 250 mls @ 0 mls/hr 10/02/20 23:17 10/02/20 23:45 Chloride IVPB 250 mls INF PRN Administration SBP > 140 Protocol Titrate Dextrose/Sodium Chloride 1,000 mls @ 75 mls/hr 10/03/20 10:30 10/03/20 11:41 D5 0.9% Ns IV 1,000 mls .[id number] BRII Administration Potassium Chloride 40 meq/ 270 mls @ 67.5 mls/hr 10/03/20 13:00 10/03/20 13:40 Sodium Chloride IVPB 01/30/21 16:59 270 mls NOW BRII Administration Insulin Human Lispro 0 units 10/01/20 14:27 10/03/20 10:29 Humalog 300 Units/3 Ml Vial SC 3 unit .MILD SLIDING SCALE PRN Administration Mild Correctional Scale Thiamine HCl 100 mg 10/02/20 15:00 10/02/20 14:57 Thiamine Hcl 200 Mg/2 Ml Vial SLOW IVP 100 mg Q24HR BRII Administration Vitals: Vital Signs (12 hours) Temp Pulse Ox 10/03/20 07:10 96 10/03/20 05:00 98.7 F 10/03/20 02:10 97 Weight Admit Weight 151 lb 0.266 oz Weight 151 lb 14.376 oz Most Recent Monitor Data Heart Rate from ECG 84 NIBP 125/71 NIBP BP-Mean 89 Respiration from ECG 17 SpO2 96 PHYSICAL EXAMINATION: CVS: Regular rate and rhythm. CHEST: Clear. ABDOMEN: Soft. NECK: Supple. NEUROLOGICAL: Mental status, the patient is extremely somnolent. He opens eyes to noxious stimuli. Does not follow commands. Does not maintain eye contact. Cranial nerves, pupils 4 mm, round and reactive to light. Face symmetric. Tongue midline. Mild right facial droop. Motor muscle tone is increased on the right with right hemiplegia. Sensory, withdraws left upper and lower extremity to pain. Minimal response on the right. Cerebellar, unable to perform secondary to patient's mental status. Gait deferred due to patient's safety reason. DATA REVIEWED: I reviewed the labs and the head CT, which showed large parenchymal hemorrhage within the left thalamus with surrounding vasogenic edema and left to right midline shift 1.2 mm. CTA of the head and neck showed moderate narrowing involving the left cavernous sinus and large hematoma and intraventricular hemorrhage. ASSESSMENT AND PLAN: Mr. Melissa Blanco is consulted for altered mental status. He continues to be somnolent. Altered mental status seems most likely secondary to recent bleed and vasogenic edema. EEG completed today and reviewed, which was negative for acute intracranial pathology. Neurosurgery is on board and head CT today showed new small amount of right lateral parietal subarachnoid hemorrhage and new tiny focus of right paramedian posterior upper occipital probably cortex less likely subarachnoid hemorrhage, and there is no significant interval change on the large left thalamic intra-axial hematoma and significant volume of the intraventricular hematoma, Left greater than right. He continues to be have significant hemiplegia and Somnolence. Prognosis guarded. Neurosurgery is on board and patient remains on a Cardene drip fo strict patient control. Continue frequent Neuro-checks and telemetry to rule out arrhythmias. Continue medical management per primary team and Neurosurgery. EEG did not reveal any evidence of seizure activity. We will continue to follow. Thank you for the consult. Job ID: [id number] MTDD
[2020-10-04] MEDS: Dextrose 5 % And 0.9 % NaCl 1,000 ML IV SCH ×2 (01:40→12:29)
[2020-10-04 04:02] LABS: #Lymphocytes 1.3 thou/uL (1.20-3.40); #Monocytes 1.2 thou/uL (0.11-0.59); #Neutrophils 9.6 thou/uL (1.40-6.50); %Basophils 0.3 % (0.0-1.0); %Eosinophils 0.3 % (0.0-10.0); %Monocytes 9.7 % (0.0-10.0); %Neutrophils 78.7 % (42.0-75.0); Hemoglobin 13.4 g/dL (14.0-18.0); Mean Corpuscular HGB CONC 33.1 g/dL (32.0-36.0); Mean Corpuscular Volume 96.8 fL (78.0-98.0); Mean Platelet Volume 7.6 fL (7.4-10.4); Platelet Count 209 thou/uL (130-400); RBC Distribution Width 11.8 % (11.5-14.5); Red Blood Cell (RBC) Count 4.18 mill/uL (4.70-6.10); White Blood Cell (WBC) Count 12.2 thou/uL (4.8-10.8)
[2020-10-04 04:19] LABS: ALT (SGPT) 20 U/L (8-55); AST (SGOT) 22 U/L (5-34); Albumin 3.3 g/dL (3.5-5.0); Alkaline Phosphatase 87 U/L (40-110); Anion Gap 14 mmol/L (10-20); BUN (Urea Nitrogen) 14 mg/dL (8.4-25.7); Bilirubin, Total 0.9 mg/dL (0.2-1.2); CK (CPK) 254 U/L (30-200); Calc. Creatinine Clearance 114 mL/min (70-130); Calcium 8.5 mg/dL (7.8-10.44); Carbon Dioxide 21 mmol/L (22-29); Chloride 113 mmol/L (98-107); Globulin 3.8 g/dL (2.4-3.5); Glucose 204 mg/dL (70-105); Magnesium 2.1 mg/dL (1.6-2.6); Phosphorus 2.2 mg/dL (2.3-4.7); Potassium 3.3 mmol/L (3.5-5.1); Protein, Total 7.1 g/dL (6.0-8.3); Sodium 145 mmol/L (136-145)
[2020-10-04] MEDS: Potassium Chloride 20 MEQ in Premix Bag 1 BAG IVPB SCH ×2 (05:49→07:57)
[2020-10-04] MEDS: HumaLOG 300 UNITS/3 ML VIAL SC PRN ×2 (06:12→10:30)
[2020-10-04] MEDS ORDERED: Potassium Phosphate 15 MMOL in Sodium Chloride 0.9% 250 ML 250 ML IVPB SCH (08:30)
[2020-10-04] MEDS: NPH, Human Insulin Isophane 300 UNIT/3 ML VIAL SC SCH ×2 (09:57→20:12)
[2020-10-04] MEDS: Famotidine/PF 20 mg/2ml Vial SLOW IVP SCH ×2 (09:57→20:10)
--- NOTE | 2020-10-04 11:42 | RAD ---
EXAM: Abdomen one view: HISTORY: Dobbhoff tube placement evaluation COMPARISON: None FINDINGS: Dobbhoff tube extends into and is somewhat coiled within the stomach. No evidence for large or small bowel obstruction. No free intraperitoneal air or extraluminal gas. No overt calculus. IMPRESSION: Dobbhoff tube extends into and is somewhat coiled within the stomach.
[2020-10-04] MEDS ORDERED: Carvedilol 6.25 MG TAB PER TUBE SCH (12:00)
[2020-10-04] MEDS ORDERED: Amlodipine 5 MG TAB PER TUBE SCH (12:00)
--- NOTE | 2020-10-04 12:14 | RAD ---
Radiograph abdomen one view: 10/04/2020 11:28 AM HISTORY: Manipulation of feeding tube in 50-year-old male COMPARISON: 10/04/2020 11:20 AM FINDINGS: Compared to the image taken 8 minutes ago, the tip of the Dobbhoff tube has been advanced approximate ly 2 to 3 cm. It is still looped 360 degrees in the fundus and proximal body of the decompressed stomach. IMPRESSION: Minimal change in position of Dobbhoff feeding tube looped in the proximal stomach.
[2020-10-04] MEDS: niCARdipine 50 MG in Sodium Chloride 0.9% 250 ML 230 ML IVPB PRN ×2 (12:23→19:49)
--- NOTE | 2020-10-04 12:25 | PRG ---
DATE OF SERVICE: Mr. Kolby Blanco is more responsive today. His eyes are open. He does not speak for me today, but he does follow commands on left side. I would be fine with transfer to the floor at this point or to at least telemetry if the nicardipine can be weaned. Job ID: [id number]
[2020-10-04] MEDS: cloNIDine 0.1 MG TAB PER TUBE SCH ×2 (14:57→23:03)
[2020-10-04] MEDS: Thiamine HCl 200 MG/2 ML VIAL SLOW IVP SCH (15:17)
[2020-10-04] MEDS: Acetaminophen 650 MG/20.3 ML UDCUP PO PRN (15:33)
[2020-10-04] MEDS: Carvedilol 3.125 MG TAB PER TUBE SCH (20:10)
[2020-10-04] MEDS: Amlodipine 5 MG TAB PER TUBE SCH (20:10)
--- NOTE | 2020-10-04 21:01 | PDOC.HOSPP ---
- Subjective Encounter Date: 10/04/20 Encounter Time: 14:00 non-verbal Subjective: Patient seen and examined for intracranial bleed. Somnolent. Failed swallow eval. No significant change from yesterday. Remains on Cardene drip. - Objective Vital Signs & Weight: Vital Signs (12 hours) Temp Pulse BP 10/04/20 20:10 133/74 10/04/20 16:00 98.6 F 10/04/20 14:57 133/74 10/04/20 12:33 111 H 144/77 H 10/04/20 12:32 144/77 H 10/04/20 12:00 100.1 F H Weight Admit Weight 151 lb 0.266 oz Weight 156 lb 8.451 oz Most Recent Monitor Data Heart Rate from ECG 80 NIBP 128/64 NIBP BP-Mean 85 Respiration from ECG 15 SpO2 98 I&O: 10/03/20 10/04/20 10/05/20 06:59 06:59 06:59 Intake Total 775.0 3055 1613 Output Total 500 1650 700 Balance 275.0 1405 913 Result Diagrams: 10/04/20 03:29 10/04/20 03:29 Additional Labs: Accuchecks 10/04/20 10/04/20 10/04/20 16:49 10:26 05:59 POC Glucose 149 H 188 H 181 H 10/04/20 00:15 POC Glucose 180 H Abnormal Lab Results - Last 48 hrs 10/03/20 11:14: Chloride 113 H, Carbon Dioxide 17 L, Creatinine 0.69 L, Albumin 3.3 L, Globulin 3.8 H, Albumin/Globulin Ratio 0.9 L 10/03/20 11:14: WBC 15.8 H, RBC 4.30 L, MCV 98.7 H, MCH 33.9 H, Neutrophils % 83.2 H, Lymphocytes % 8.4 L, Neutrophils # 13.1 H, Monocytes # 1.3 H 10/04/20 03:29: Potassium 3.3 L, Chloride 113 H, Carbon Dioxide 21 L, Phosphorus 2.2 L, Creatine Kinase 254 H, Albumin 3.3 L, Globulin 3.8 H, Albumin/Globulin Ratio 0.9 L 10/04/20 03:29: WBC 12.2 H, RBC 4.18 L, Hgb 13.4 L, Hct 40.5 L, MCH 32.0 H, Neutrophils % 78.7 H, Lymphocytes % 11.0 L, Neutrophils # 9.6 H, Monocytes # 1.2 H EKG Reviewed by me: Yes (Sinus rhythm on telemetry) Hospitalist ROS - Review of Systems ROS unobtainable: due to mental status - Medication Medications: Active Medications Generic Name Dose Route Start Last Admin Trade Name Freq PRN Reason Stop Dose Admin Acetaminophen 650 mg 10/04/20 15:04 10/04/20 15:33 Acetaminophen 650 Mg/20.3 Ml Udcup PO 650 mg Q4H PRN Administration pain/fever Amlodipine Besylate 5 mg 10/04/20 21:00 10/04/20 20:10 Amlodipine 5 Mg Tab PER TUBE 5 mg BID BRII Administration Carvedilol 3.125 mg 10/04/20 21:00 10/04/20 20:10 Carvedilol 3.125 Mg Tab PER TUBE 3.125 mg BID BRII Administration Clonidine 0.1 mg 10/04/20 14:00 10/04/20 14:57 Clonidine 0.1 Mg Tab PER TUBE 0.1 mg Q8HR BRII Administration Famotidine 20 mg 10/01/20 21:00 10/04/20 20:10 Famotidine/Pf 20 Mg/2ml Vial SLOW IVP 20 mg Q12HR BRII Administration Nicardipine HCl 25 mg/ Sodium 250 mls @ 0 mls/hr 10/01/20 13:59 10/03/20 08:40 Chloride IVPB 250 mls INF PRN Administration SBP > 140 Protocol Titrate Nicardipine HCl 50 mg/ Sodium 250 mls @ 0 mls/hr 10/02/20 23:17 10/04/20 19:49 Chloride IVPB 250 mls INF PRN Administration SBP > 140 Protocol Titrate Dextrose/Sodium Chloride 1,000 mls @ 50 mls/hr 10/04/20 11:51 10/04/20 12:29 D5 0.9% Ns IV 1,000 mls .Q20H BRII Administration Insulin Human Lispro 0 units 10/01/20 14:27 10/04/20 10:30 Humalog 300 Units/3 Ml Vial SC 2 unit .MILD SLIDING SCALE PRN Administration Mild Correctional Scale Insulin Human NPH 10 unit 10/03/20 21:00 10/04/20 20:12 Nph, Human Insulin Isophane 300 Unit/3 Ml Vial SC 10 unit BID BRII Administration Thiamine HCl 100 mg 10/02/20 15:00 10/04/20 15:17 Thiamine Hcl 200 Mg/2 Ml Vial SLOW IVP 100 mg Q24HR BRII Administration Hospitalist Exam Vitals: Vital Signs (12 hours) Temp Pulse BP 10/04/20 20:10 133/74 10/04/20 16:00 98.6 F 10/04/20 14:57 133/74 10/04/20 12:33 111 H 144/77 H 10/04/20 12:32 144/77 H 10/04/20 12:00 100.1 F H Weight Admit Weight 151 lb 0.266 oz Weight 156 lb 8.451 oz Most Recent Monitor Data Heart Rate from ECG 80 NIBP 128/64 NIBP BP-Mean 85 Respiration from ECG 15 SpO2 98 General Appearance: ill appearing Neck: supple, no JVD Heart: RRR, no gallops, no rubs, normal peripheral pulses Respiratory: no wheezes, no rales, no ronchi, normal chest expansion Gastrointestinal: soft, normal bowel sounds, no guarding, no rigidity Extremities: no cyanosis, no clubbing, no edema Neurological - other findings: Neuro/psychcannot assess due to current mentation Hosp A/P - Plan 50-year-old male with unknown past history was brought in on 10/01 to the emergency room with altered mentation. CT scan of the brain was consistent with large intraparenchymal hemorrhage centered within the left thalamus with mild surrounding vasogenic edema with midline shift of 1.[address] angiogram of the brain was negative for aneurysm. Repeat CT brain next morning showed similar findings. He was started on Cardene drip. Dobbhoff tube was placed on 10/04Due to persistent somnolence. Impression: Encephalopathy due to large left thalamic bleed with midline shiftsuspected due to uncontrolled hypertension Uncontrolled diabetes mellitus type 2 with A1c of 10.4 History of alcohol abuse Hypokalemia Hypophosphatemia Plan: Will Place Dobbhoff tube and start tube feeding. Start amlodipine, carvedilol as well as clonidine. Wean Cardene drip as tolerated. Transfer to stroke unit once off Cardene drip. Continue NPH with sliding scale. DD use IV fluid to 50 mL/h. Continue thiamine. Add folic acid. Continue other medications as above. Replace phosphorus. A.m. labs. 10/03 Change IV fluid to D5 NS. Add NPH. Continue Cardene drip. Replace potassium. Recheck CK in a.m. Continue thiamine. Continue GI prophylaxis. A.m. labs. Patient will probably need NG tube for oral antihypertensives. Continue other medications as above. I attempted to call the family with no answer.
[2020-10-05 03:59] LABS: #Lymphocytes 1.8 thou/uL (1.20-3.40); #Monocytes 1.2 thou/uL (0.11-0.59); %Basophils 0.3 % (0.0-1.0); %Eosinophils 0.4 % (0.0-10.0); %Neutrophils 72.4 % (42.0-75.0); Hemoglobin 13.7 g/dL (14.0-18.0); Mean Corpuscular HGB CONC 34.8 g/dL (32.0-36.0); Mean Corpuscular Hemoglobin 34.1 pg (27.0-31.0); Mean Corpuscular Volume 97.9 fL (78.0-98.0); Mean Platelet Volume 7.9 fL (7.4-10.4); Platelet Count 208 thou/uL (130-400); RBC Distribution Width 11.8 % (11.5-14.5); Red Blood Cell (RBC) Count 4.02 mill/uL (4.70-6.10)
[2020-10-05 04:31] LABS: Anion Gap 11 mmol/L (10-20); BUN (Urea Nitrogen) 12 mg/dL (8.4-25.7); Calc. Creatinine Clearance 121 mL/min (70-130); Calcium 8.3 mg/dL (7.8-10.44); Carbon Dioxide 26 mmol/L (22-29); Chloride 109 mmol/L (98-107); Glucose 261 mg/dL (70-105); Phosphorus 3.1 mg/dL (2.3-4.7); Potassium 3.3 mmol/L (3.5-5.1); Sodium 143 mmol/L (136-145)
[2020-10-05] MEDS: HumaLOG 300 UNITS/3 ML VIAL SC PRN ×2 (06:14→12:00)
[2020-10-05] MEDS: cloNIDine 0.1 MG TAB PER TUBE SCH ×3 (06:18→18:26)
[2020-10-05] MEDS ORDERED: Magnesium 2 GM/50 ML 2 GM in Premix Bag 1 BAG IVPB SCH (06:30)
--- NOTE | 2020-10-05 07:12 | PRG ---
DATE OF SERVICE: 10/05/2020 Mr. Kolby Blanco is in the intermediate care unit bed this morning. His nurse reports that the intermittently follows commands on the left side. In the last 24 hours the highest temperature I see is 100.1 degrees Fahrenheit. Blood pressures have been in the 120s to 130s. Mr. Kolby Blanco has his eyes open. He has dysconjugate gaze and mild retractory nystagmus. He is purposeful with the left side. Occasionally, I think you can get him to follow commands, but it is not reproducible on every examination. He does say a word for me when I asked him in Divehi and Japanese if he has a headache. He says no. Sodium is 143. White blood cell count 11.0. Mr. Kolby Blanco is stable from his intracerebral hemorrhage affecting his brainstem and his left thalamus. He is going to need inpatient rehabilitation. A transfer to inpatient rehab could be achieved any time this week. I think in the coming days, he will become more able to participate in his therapy. Job ID: [id number] [facility]
[2020-10-05] MEDS: Potassium Chloride 20 MEQ in Premix Bag 1 BAG IVPB SCH ×2 (07:14→08:44)
[2020-10-05] MEDS: Famotidine/PF 20 mg/2ml Vial SLOW IVP SCH (08:37)
[2020-10-05] MEDS: Carvedilol 3.125 MG TAB PER TUBE SCH (08:37)
[2020-10-05] MEDS: Amlodipine 5 MG TAB PER TUBE SCH ×2 (08:37→20:03)
[2020-10-05] MEDS: Dextrose 5 % And 0.9 % NaCl 1,000 ML IV SCH (08:37)
[2020-10-05] MEDS: NPH, Human Insulin Isophane 300 UNIT/3 ML VIAL SC SCH ×2 (08:38→20:05)
[2020-10-05] MEDS: niCARdipine 50 MG in Sodium Chloride 0.9% 250 ML 230 ML IVPB PRN (08:44)
[2020-10-05] MEDS ORDERED: Potassium Bicarbonate/Cit Ac 20 MEQ TAB PO SCH (09:00)
[2020-10-05] MEDS ORDERED: Dextrose 5 % And 0.9 % NaCl 1,000 ML IV SCH (11:42)
[2020-10-05] MEDS ORDERED: Carvedilol 3.125 MG TAB PER TUBE SCH ×2 (11:42→13:15)
[2020-10-05] MEDS: cloNIDine 0.1 MG TAB PO PRN ×2 (11:44→15:18)
--- NOTE | 2020-10-05 12:47 | PDOC.NEUPN ---
- Subjective Encounter Date: 10/05/20 Subjective: He continues to remain somnolent with minimal improvement. - Objective Vital Signs & Weight: Vital Signs (12 hours) Temp Pulse Pulse BP BP BP Pulse Ox 10/05/20 11:53 133/74 10/05/20 11:44 133/74 10/05/20 11:00 99.2 F 10/05/20 09:47 90 94 140/80 134/73 10/05/20 08:37 133/74 10/05/20 07:47 97 10/05/20 07:00 99.9 F H 10/05/20 06:18 133/74 Pulse Ox Pulse Ox 10/05/20 11:53 10/05/20 11:44 10/05/20 11:00 10/05/20 09:47 100 100 10/05/20 08:37 10/05/20 07:47 10/05/20 07:00 10/05/20 06:18 Weight Admit Weight 151 lb 0.266 oz Weight 167 lb 8.821 oz Most Recent Monitor Data Heart Rate from ECG 86 NIBP 143/86 NIBP BP-Mean 105 Respiration from ECG 16 SpO2 100 I&O: 10/04/20 10/05/20 10/06/20 06:59 06:59 06:59 Intake Total 3055 3133 200 Output Total 1650 1225 750 Balance 1405 1908 -550 Result Diagrams: 10/05/20 03:40 10/05/20 03:40 Additional Labs: Accuchecks 10/04/20 10/04/20 22:13 16:49 POC Glucose 160 H 149 H Radiology Reviewed by me: Yes EKG Reviewed by me: Yes ROS - Review of Systems ROS unobtainable: due to mental status - Medication Medications: Active Medications Generic Name Dose Route Start Last Admin Trade Name Freq PRN Reason Stop Dose Admin Acetaminophen 650 mg 10/04/20 15:04 10/04/20 15:33 Acetaminophen 650 Mg/20.3 Ml Udcup PO 650 mg Q4H PRN Administration pain/fever Amlodipine Besylate 5 mg 10/04/20 21:00 10/05/20 08:37 Amlodipine 5 Mg Tab PER TUBE 5 mg BID BRII Administration Clonidine 0.1 mg 10/04/20 11:47 10/05/20 11:44 Clonidine 0.1 Mg Tab PO 0.1 mg Q4H PRN Administration SBP Greater Than 180 Clonidine 0.1 mg 10/05/20 12:00 10/05/20 11:53 Clonidine 0.1 Mg Tab PER TUBE Not Given Q6HR BRII Famotidine 20 mg 10/01/20 21:00 10/05/20 08:37 Famotidine/Pf 20 Mg/2ml Vial SLOW IVP 20 mg Q12HR BRII Administration Nicardipine HCl 50 mg/ Sodium 250 mls @ 0 mls/hr 10/02/20 23:17 10/05/20 08:44 Chloride IVPB 250 mls INF PRN Administration SBP > 140 Protocol Titrate Dextrose/Sodium Chloride 1,000 mls @ 10 mls/hr 10/05/20 11:42 10/05/20 11:55 D5 0.9% Ns IV Not Given .Q24H BRII Insulin Human Lispro 0 units 10/01/20 14:27 10/05/20 06:14 Humalog 300 Units/3 Ml Vial SC 3 unit .MILD SLIDING SCALE PRN Administration Mild Correctional Scale Insulin Human NPH 10 unit 10/03/20 21:00 10/05/20 08:38 Nph, Human Insulin Isophane 300 Unit/3 Ml Vial SC 10 unit BID BRII Administration Thiamine HCl 100 mg 10/02/20 15:00 10/04/20 15:17 Thiamine Hcl 200 Mg/2 Ml Vial SLOW IVP 100 mg Q24HR BRII Administration - Exam General Appearance: ill appearing Eye: PERRL ENT: normocephalic atraumatic Neck: supple Respiratory: CTAB Cardiovascular: RRR Gastrointestinal: soft Extremities: no cyanosis Skin: normal turgor Neurological: no new deficit Musculoskeletal: no muscle wasting PSYCH: somnolent, lethargic Results - Labs Result Diagrams: 10/05/20 03:40 10/05/20 03:40 Lab results: WBC 11.0 thou/uL (4.8-10.8) H 10/05/20 03:40 Hgb 13.7 g/dL (14.0-18.0) L 10/05/20 03:40 Hct 39.4 % (42.0-52.0) L 10/05/20 03:40 MCV 97.9 fL (78.0-98.0) 10/05/20 03:40 Plt Count 208 thou/uL (130-400) 10/05/20 03:40 Neutrophils % 72.4 % (42.0-75.0) 10/05/20 03:40 Sodium 143 mmol/L (136-145) 10/05/20 03:40 Potassium 3.3 mmol/L (3.5-5.1) L 10/05/20 03:40 Chloride 109 mmol/L (98-107) H 10/05/20 03:40 Carbon Dioxide 26 mmol/L (22-29) 10/05/20 03:40 BUN 12 mg/dL (8.4-25.7) 10/05/20 03:40 Creatinine 0.72 mg/dL (0.7-1.3) 10/05/20 03:40 Glucose 261 mg/dL (70-105) H 10/05/20 03:40 Calcium 8.3 mg/dL (7.8-10.44) 10/05/20 03:40 Total Bilirubin 0.9 mg/dL (0.2-1.2) 10/04/20 03:29 AST 22 U/L (5-34) 10/04/20 03:29 ALT 20 U/L (8-55) 10/04/20 03:29 Alkaline Phosphatase 87 U/L (40-110) 10/04/20 03:29 Ammonia 40 umol/L (18-72) 10/01/20 12:21 Creatine Kinase 254 U/L (30-200) H 10/04/20 03:29 Troponin I Less than 0.010 ng/mL (< 0.028) 10/01/20 12:21 Serum Total Protein 7.1 g/dL (6.0-8.3) 10/04/20 03:29 Albumin 3.3 g/dL (3.5-5.0) L 10/04/20 03:29 Lipase 5 U/L (8-78) L 10/01/20 12:21 Urine Ketones 80 mg/dL (Negative) A 10/01/20 12:45 Urine Blood 2+ (Negative) A 10/01/20 12:45 Urine Nitrite Negative (Negative) 10/01/20 12:45 Ur Leukocyte Esterase Negative Papo/uL (Negative) 10/01/20 12:45 Urine RBC 0-3 HPF (0-3) 10/01/20 12:45 Urine WBC 4-6 HPF (0-3) A 10/01/20 12:45 Ur Squamous Epith Cells None Seen HPF (0-3) 10/01/20 12:45 Urine Bacteria 1+ HPF (None Seen) A 10/01/20 12:45 - Radiology Interpretation CT scan - head Additional Comment: Head CT consistent with intracranial bleed PN A/P (1) ICH (intracerebral hemorrhage) Code(s): I61.9 - NONTRAUMATIC INTRACEREBRAL HEMORRHAGE, UNSPECIFIED Status: Acute (2) Alcohol abuse Code(s): F10.10 - ALCOHOL ABUSE, UNCOMPLICATED Status: Acute (3) Hyperglycemia Code(s): R73.9 - HYPERGLYCEMIA, UNSPECIFIED Status: Acute (4) Leukocytosis Code(s): D72.829 - ELEVATED WHITE BLOOD CELL COUNT, UNSPECIFIED Status: Acute - Plan Daily Plan: PT/OT, speech therapy, DVT proph w/SCDs Mr. Hernandez is a 50-year-old male with medical history significant for alcohol abuse, hypertension presented with altered mental status in the setting of hypertensive emergency. Patient continues to remain somnolent with no improvement. We will repeat EEG to rule out cortical irritability or underlying subclinical seizures and also repeat head CT without contrast to assess if there is any acute change in the bleed or surrounding vasogenic edema. Initial HCT scan of the brain reviewed which was consistent with large intraparenchymal hemorrhage centered within the left thalamus with mild surrounding vasogenic edema with midline shift of 1.[address] angiogram of the brain was negative for aneurysm. Neurochecks every 4 hours. Strict control of hypertension. Patient is on Cardene drip for blood pressure control. N.p.o. till cleared by speech. Strict control of blood glucose. Patient has Dobbhoff tube for medications. Avoid antiplatelets or anticoagulants due to recent bleed. Telemetry to rule out arrhythmias. Further recommendations will depend on the results of the testing. Continue medical management per primary team and neurosurgery. Plan discussed in detail with the nursing staff.
[2020-10-05] MEDS ORDERED: Labetalol HCl 100 MG/20 ML VIAL ONE (13:14)
[2020-10-05] MEDS ORDERED: hydrALAZINE 25 MG TAB PER TUBE SCH (13:15)
[2020-10-05] MEDS: Thiamine HCl 200 MG/2 ML VIAL SLOW IVP SCH (14:34)
[2020-10-05] MEDS: Labetalol HCl 100 MG/20 ML VIAL SLOW IVP PRN (15:35)
--- NOTE | 2020-10-05 16:52 | PDOC.EEG ---
Neurology EEG Report - Report Report: This EEG was performed using 24 channel [employer] video EEG machine with 24 disc anne ctrodes. This was an extended 2 hours 4 minutes of inpatient video EEG recording. Digital analysis of the EEG was done for spike and seizure detection which revealed no abnormalities. Background: The posterior background rhythm is not observed. Hyperventilation: Not performed. Photic Stimulation: No significant response. Sleep: No stage change is observed. EEG Diagnosis: Generalized irregular theta delta activity seen during the recording. Absence of posterior background rhythm. Clinical Interpretation: This EEG is consistent with moderate generalized nonspecific cerebral dysfunct ion. No electrographic seizures captured during the recording
[2020-10-05] MEDS: hydrALAZINE 25 MG TAB PER TUBE SCH (18:27)
[2020-10-05] MEDS: Carvedilol 6.25 MG TAB PER TUBE SCH (20:03)
--- NOTE | 2020-10-05 22:52 | PDOC.HOSPP ---
- Subjective Encounter Date: 10/05/20 Encounter Time: 12:00 non-verbal Subjective: Patient seen and examined for intracranial bleed. Follows commands intermittently to some extent. No new focal deficit - Objective Vital Signs & Weight: Vital Signs (12 hours) Temp Pulse Resp BP BP Pulse Ox 10/05/20 20:03 79 10/05/20 20:00 98.4 F 79 18 159/83 H 97 10/05/20 18:26 156/85 H 10/05/20 16:40 98.4 F 74 17 141/75 H 96 10/05/20 15:35 80 151/77 H 10/05/20 15:18 149/80 H 10/05/20 15:00 99.1 F 10/05/20 13:21 133/74 10/05/20 13:19 133/74 10/05/20 11:53 133/74 10/05/20 11:44 133/74 10/05/20 11:00 99.2 F Weight Admit Weight 151 lb 0.266 oz Weight 167 lb 8.821 oz Most Recent Monitor Data Heart Rate from ECG 78 NIBP 124/71 NIBP BP-Mean 88 Respiration from ECG 20 SpO2 100 I&O: 10/04/20 10/05/20 10/06/20 06:59 06:59 06:59 Intake Total 3055 3133 320 Output Total 1650 1225 1400 Balance 1405 1908 -1080 Result Diagrams: 10/05/20 03:40 10/05/20 03:40 Additional Labs: Accuchecks 10/05/20 16:45 POC Glucose 179 H Abnormal Lab Results - Last 48 hrs 10/04/20 03:29: Potassium 3.3 L, Chloride 113 H, Carbon Dioxide 21 L, Phosphorus 2.2 L, Creatine Kinase 254 H, Albumin 3.3 L, Globulin 3.8 H, Albumin/Globulin Ratio 0.9 L 10/04/20 03:29: WBC 12.2 H, RBC 4.18 L, Hgb 13.4 L, Hct 40.5 L, MCH 32.0 H, Neutrophils % 78.7 H, Lymphocytes % 11.0 L, Neutrophils # 9.6 H, Monocytes # 1.2 H 10/05/20 03:40: Potassium 3.3 L, Chloride 109 H 10/05/20 03:40: WBC 11.0 H, RBC 4.02 L, Hgb 13.7 L, Hct 39.4 L, MCH 34.1 H, Lymphocytes % 16.0 L, Monocytes % 11.0 H, Neutrophils # 8.0 H, Monocytes # 1.2 H EKG Reviewed by me: Yes (Sinus rhythm on telemetry) Hospitalist ROS - Review of Systems ROS unobtainable: due to mental status - Medication Medications: Active Medications Generic Name Dose Route Start Last Admin Trade Name Freq PRN Reason Stop Dose Admin Acetaminophen 650 mg 10/04/20 15:04 10/04/20 15:33 Acetaminophen 650 Mg/20.3 Ml Udcup PO 650 mg Q4H PRN Administration pain/fever Amlodipine Besylate 5 mg 10/04/20 21:00 10/05/20 20:03 Amlodipine 5 Mg Tab PER TUBE 5 mg BID BRII Administration Carvedilol 6.25 mg 10/05/20 21:00 10/05/20 20:03 Carvedilol 6.25 Mg Tab PER TUBE 6.25 mg BID BRII Administration Clonidine 0.1 mg 10/04/20 11:47 10/05/20 15:18 Clonidine 0.1 Mg Tab PO 0.1 mg Q4H PRN Administration SBP Greater Than 180 Clonidine 0.1 mg 10/05/20 12:00 10/05/20 18:26 Clonidine 0.1 Mg Tab PER TUBE 0.1 mg Q6HR BRII Administration Famotidine 20 mg 10/01/20 21:00 10/05/20 08:37 Famotidine/Pf 20 Mg/2ml Vial SLOW IVP 20 mg Q12HR BRII Administration Hydralazine HCl 25 mg 10/05/20 18:00 10/05/20 18:27 Hydralazine 25 Mg Tab PER TUBE 25 mg Q6HR BRII Administration Nicardipine HCl 50 mg/ Sodium 250 mls @ 0 mls/hr 10/02/20 23:17 10/05/20 08:44 Chloride IVPB 250 mls INF PRN Administration SBP > 140 Protocol Titrate Dextrose/Sodium Chloride 1,000 mls @ 10 mls/hr 10/05/20 11:42 10/05/20 11:55 D5 0.9% Ns IV Not Given .Q24H BRII Insulin Human Lispro 0 units 10/01/20 14:27 10/05/20 12:00 Humalog 300 Units/3 Ml Vial SC 3 unit .MILD SLIDING SCALE PRN Administration Mild Correctional Scale Insulin Human NPH 10 unit 10/03/20 21:00 10/05/20 20:05 Nph, Human Insulin Isophane 300 Unit/3 Ml Vial SC 10 unit BID BRII Administration Labetalol HCl 10 mg 10/05/20 13:08 10/05/20 15:35 Labetalol Hcl 100 Mg/20 Ml Vial SLOW IVP 10 mg Q4H PRN Administration Systolic BP > 140 Thiamine HCl 100 mg 10/02/20 15:00 10/05/20 14:34 Thiamine Hcl 200 Mg/2 Ml Vial SLOW IVP 100 mg Q24HR BRII Administration Hospitalist Exam Vitals: Vital Signs (12 hours) Temp Pulse Resp BP BP Pulse Ox 10/05/20 20:03 79 10/05/20 20:00 98.4 F 79 18 159/83 H 97 10/05/20 18:26 156/85 H 10/05/20 16:40 98.4 F 74 17 141/75 H 96 10/05/20 15:35 80 151/77 H 10/05/20 15:18 149/80 H 10/05/20 15:00 99.1 F 10/05/20 13:21 133/74 10/05/20 13:19 133/74 10/05/20 11:53 133/74 10/05/20 11:44 133/74 10/05/20 11:00 99.2 F Weight Admit Weight 151 lb 0.266 oz Weight 167 lb 8.821 oz Most Recent Monitor Data Heart Rate from ECG 78 NIBP 124/71 NIBP BP-Mean 88 Respiration from ECG 20 SpO2 100 General Appearance: ill appearing ENT: normocephalic atraumatic, no oropharyngeal lesions Neck: supple, no JVD Heart: RRR, no gallops, no rubs, normal peripheral pulses Respiratory: no wheezes, no rales, no ronchi, normal chest expansion Gastrointestinal: soft, non-distended, normal bowel sounds, no guarding, no rigidity Extremities: no cyanosis, no clubbing Neurological: no new deficit Musculoskeletal: generalized weakness Hosp A/P - Plan DVT proph w/SCDs (No heparin due to intracranial bleed) 50-year-old male with unknown past history was brought in on 10/01 to the emergency room with altered mentation. CT scan of the brain was consistent with large intraparenchymal hemorrhage centered within the left thalamus with mild surrounding vasogenic edema with midline shift of 1.[address] angiogram of the brain was negative for aneurysm. Repeat CT brain next morning showed similar f indings. He was started on Cardene drip. Dobbhoff tube was placed on 10/04Due to persistent somnolence. Impression: Encephalopathy due to large left thalamic bleed with midline shiftsuspected due to uncontrolled hypertension Uncontrolled diabetes mellitus type 2 with A1c of 10.4 History of alcohol abuse Hypokalemia Hypophosphatemia Plan: Cardene drip discontinued this morning. Discussed with neurosurgery who recommended systolic blood pressure goal below 140. Will add hydralazine. Increase clonidine frequency. Increase carvedilol dose. Continue tube feeding. Discontinue IV fluids. Replace magnesium and potassium recheck labs in a.m. structural engineering project manager consult for correction facility placement. Transferred to stroke unit. Continue other medications as above. Not on antiplatelet agent due to intracranial bleed 10/[address] Dobbhoff tube and start tube feeding. Start amlodipine, carvedilol as well as clonidine. Wean Cardene drip as tolerated. Transfer to stroke unit once off Cardene drip. Continue NPH with sliding scale. DD use IV fluid to 50 mL/h. Continue thiamine. Add folic acid. Continue other medications as above. Replace phosphorus. A.m. labs. 10/03 Change IV fluid to D5 NS. Add NPH. Continue Cardene drip. Replace potassium. Recheck CK in a.m. Continue thiamine. Continue GI prophylaxis. A.m. labs. Patient will probably need NG tube for oral antihypertensives. Continue other medications as above. I attempted to call the family with no answer.
[2020-10-06] MEDS: Famotidine/PF 20 mg/2ml Vial SLOW IVP SCH ×3 (00:10→20:52)
[2020-10-06] MEDS: hydrALAZINE 25 MG TAB PER TUBE SCH ×5 (00:10→23:07)
[2020-10-06] MEDS: cloNIDine 0.1 MG TAB PER TUBE SCH ×5 (00:10→23:07)
[2020-10-06 04:18] LABS: Anion Gap 13 mmol/L (10-20); BUN (Urea Nitrogen) 15 mg/dL (8.4-25.7); Calc. Creatinine Clearance 145 mL/min (70-130); Carbon Dioxide 24 mmol/L (22-29); Chloride 103 mmol/L (98-107); Glucose 250 mg/dL (70-105); Magnesium 2.1 mg/dL (1.6-2.6); Phosphorus 3.4 mg/dL (2.3-4.7); Potassium 3.5 mmol/L (3.5-5.1); Sodium 136 mmol/L (136-145)
[2020-10-06] MEDS: hydrALAZINE 20 MG/ML VIAL SLOW IVP PRN ×2 (04:50→15:42)
[2020-10-06] MEDS: HumaLOG 300 UNITS/3 ML VIAL SC PRN ×3 (06:51→17:41)
--- NOTE | 2020-10-06 07:31 | PRG ---
DATE OF SERVICE: 10/06/2020 I saw Mr. Kolby Blanco in his hospital room this morning. He has been moved out of the intermediate care unit to floor care. Nursing reports he was not following commands overnight. Among the electronically recorded vital signs, I see a maximum temperature of 99.9 degrees Fahrenheit. Systolic blood pressures have been in the 140s to 160s. On my examination, Mr. Kolby Blanco squeezes the left hand and wiggles the left toes to command. The right side is not moving. The eyes open with enough stimulation. He looks around the room. There is dysconjugate gaze. Of concern is that the sodium dropped 7 points from 143 to 136 since yesterday. Mr. Kolby Blanco needs a little bit of fluid restriction. 3.1 L in over 24 hours prior to this one is a bit too much. I think we should limit him to 2 L. I think his alertness will improve as his sodium goes up. We will get a CT scan to make sure we are not missing hydrocephalus. Job ID: [id number] [facility]
[2020-10-06] MEDS ORDERED: Potassium Bicarbonate/Cit Ac 20 MEQ TAB PER TUBE SCH (08:00)
[2020-10-06] MEDS: Folic Acid 1 MG TAB PER TUBE SCH (08:38)
[2020-10-06] MEDS: Amlodipine 5 MG TAB PER TUBE SCH ×2 (08:38→20:52)
[2020-10-06] MEDS: Carvedilol 6.25 MG TAB PER TUBE SCH ×2 (08:38→20:52)
--- NOTE | 2020-10-06 08:39 | CT ---
CT BRAIN NONCONTRAST: DATE: 10/06/2020 HISTORY: 50-year-old male with intracranial hemorrhage follow-up. Worsening altered mental status: Less respon sive COMPARISON: 10/03/2020 FINDINGS: The large intra-axial hematoma centered in the left thalamus measures approximately 4.4 x 3.4 x 3.1 c m. It has not changed in size since 10/03/2020. The large intraventricular hematoma within the left lateral ventricle has slightly decreased in size. Smaller volume of intraventricular hematoma in the third ventricle has decreased in density and sligh tly decreased in size. Small amount of hemorrhage in the right lateral ventricle has become smaller, now restricted to the o nly the occipital horn, and no longer in the trigone. The left thalamic hematoma causes mass effect with surrounding edema, displacing the left massa inter media to the right of midline 6 mm, with the mass effect, distortion, and edema extending into the midbrain, all of which are unchanged.. The mild ventriculomegaly involving the lateral ventricles and the anterior portion of the third vent ricle, is unchanged. The previously mentioned mild right parietal and occipital subarachnoid hemorrhage, is much less cons picuous now No new hemorrhage. IMPRESSION: 1) large left intra-axial hematoma centered in left thalamus is unchanged. 2) degree of mass effect and midline shift is unchanged. 3) sizes of intraventricular hematomas has slightly decreased. 4) minimal right-sided subarachnoid hemorrhage has decreased 5) no new hemorrhage
[2020-10-06] MEDS: Multivit, Therapeutic 1 TAB PER TUBE SCH (08:42)
[2020-10-06] MEDS: NPH, Human Insulin Isophane 300 UNIT/3 ML VIAL SC SCH ×2 (08:48→20:57)
--- NOTE | 2020-10-06 12:14 | RAD ---
PORTABLE CHEST 1 VIEW: DATE: 10/06/2020. TIME: 10:35 AM. HISTORY: Shortness of breath and fever. COMPARISON: 10/01/2020. FINDINGS/IMPRESSION: The heart size is normal. The aorta is tortuous. No lobar consolidation, pneumothoraces, or pleural effusions are seen. Interval placement of a feeding tube is seen which loops in the gastric fundus with tip directed inferiorly. There are degenerative changes in the spine. POS: [facility]
--- NOTE | 2020-10-06 13:04 | PDOC.NEUPN ---
- Subjective Encounter Date: 10/06/20 Subjective: Mr. Blanco is more awake today and tracks intermittently but does not maintain eye contact or follow commands. This is an interval improvement from yesterday. - Objective Vital Signs & Weight: Vital Signs (12 hours) Temp Pulse Resp BP Pulse Ox 10/06/20 11:42 100.5 F H 80 15 162/81 H 97 10/06/20 10:24 101.3 F H 76 17 138/73 10/06/20 08:57 96 10/06/20 07:53 99.8 F H 80 17 132/62 96 10/06/20 06:38 86 10/06/20 04:50 86 10/06/20 04:30 99.1 F 82 18 164/82 H 94 L 10/06/20 03:04 99 10/06/20 02:31 86 18 152/75 H Weight Admit Weight 151 lb 0.266 oz Weight 155 lb 13.869 oz Most Recent Monitor Data Heart Rate from ECG 78 NIBP 124/71 NIBP BP-Mean 88 Respiration from ECG 20 SpO2 100 I&O: 10/05/20 10/06/20 10/07/20 06:59 06:59 06:59 Intake Total 3133 1040 570 Output Total 1225 1400 Balance 1908 -360 570 Result Diagrams: 10/05/20 03:40 10/06/20 03:18 Additional Labs: Accuchecks 10/06/20 10/06/20 10/05/20 11:56 06:28 16:45 POC Glucose 243 H 251 H 179 H 10/05/20 11:58 POC Glucose 229 H Radiology Reviewed by me: Yes EKG Reviewed by me: Yes ROS - Review of Systems ROS unobtainable: due to mental status - Medication Medications: Active Medications Generic Name Dose Route Start Last Admin Trade Name Freq PRN Reason Stop Dose Admin Acetaminophen 650 mg 10/04/20 15:04 10/04/20 15:33 Acetaminophen 650 Mg/20.3 Ml Udcup PO 650 mg Q4H PRN Administration pain/fever Amlodipine Besylate 5 mg 10/04/20 21:00 10/06/20 08:38 Amlodipine 5 Mg Tab PER TUBE 5 mg BID BRII Administration Carvedilol 6.25 mg 10/05/20 21:00 10/06/20 08:38 Carvedilol 6.25 Mg Tab PER TUBE 6.25 mg BID BRII Administration Clonidine 0.1 mg 10/04/20 11:47 10/05/20 15:18 Clonidine 0.1 Mg Tab PO 0.1 mg Q4H PRN Administration SBP Greater Than 180 Clonidine 0.1 mg 10/05/20 12:00 10/06/20 11:47 Clonidine 0.1 Mg Tab PER TUBE 0.1 mg Q6HR BRII Administration Famotidine 20 mg 10/01/20 21:00 10/06/20 08:42 Famotidine/Pf 20 Mg/2ml Vial SLOW IVP 20 mg Q12HR BRII Administration Folic Acid 1 mg 10/06/20 09:00 10/06/20 08:38 Folic Acid 1 Mg Tab PER TUBE 1 mg DAILY BRII Administration Hydralazine HCl 5 mg 10/05/20 13:01 10/06/20 04:50 Hydralazine 20 Mg/Ml Vial SLOW IVP 5 mg Q4H PRN Administration Sbp Greater Than 140 Hydralazine HCl 25 mg 10/05/20 18:00 10/06/20 11:47 Hydralazine 25 Mg Tab PER TUBE 25 mg Q6HR BRII Administration Insulin Human Lispro 0 units 10/01/20 14:27 10/06/20 11:55 Humalog 300 Units/3 Ml Vial SC 3 unit .MILD SLIDING SCALE PRN Administration Mild Correctional Scale Insulin Human NPH 10 unit 10/03/20 21:00 10/06/20 08:48 Nph, Human Insulin Isophane 300 Unit/3 Ml Vial SC 10 unit BID BRII Administration Labetalol HCl 10 mg 10/05/20 13:08 10/05/20 15:35 Labetalol Hcl 100 Mg/20 Ml Vial SLOW IVP 10 mg Q4H PRN Administration Systolic BP > 140 Multivitamins 1 tab 10/06/20 09:00 10/06/20 08:42 Multivit, Therapeutic 1 Tab PER TUBE 1 tab DAILY BRII Administration Thiamine HCl 100 mg 10/02/20 15:00 10/05/20 14:34 Thiamine Hcl 200 Mg/2 Ml Vial SLOW IVP 100 mg Q24HR BRII Administration - Exam General Appearance: NAD Eye: PERRL ENT: normocephalic atraumatic Neck: supple Respiratory: CTAB Cardiovascular: RRR Gastrointestinal: soft Extremities: no cyanosis Skin: normal turgor Neurological: no new deficit, facial droop, hemiplegia Musculoskeletal: normal tone, no muscle wasting PSYCH: not oriented Results - Labs Result Diagrams: 10/05/20 03:40 10/06/20 03:18 Lab results: WBC 11.0 thou/uL (4.8-10.8) H 10/05/20 03:40 Hgb 13.7 g/dL (14.0-18.0) L 10/05/20 03:40 Hct 39.4 % (42.0-52.0) L 10/05/20 03:40 MCV 97.9 fL (78.0-98.0) 10/05/20 03:40 Plt Count 208 thou/uL (130-400) 10/05/20 03:40 Neutrophils % 72.4 % (42.0-75.0) 10/05/20 03:40 Sodium 136 mmol/L (136-145) 10/06/20 03:18 Potassium 3.5 mmol/L (3.5-5.1) 10/06/20 03:18 Chloride 103 mmol/L (98-107) 10/06/20 03:18 Carbon Dioxide 24 mmol/L (22-29) 10/06/20 03:18 BUN 15 mg/dL (8.4-25.7) 10/06/20 03:18 Creatinine 0.64 mg/dL (0.7-1.3) L 10/06/20 03:18 Glucose 250 mg/dL (70-105) H 10/06/20 03:18 Calcium 8.0 mg/dL (7.8-10.44) 10/06/20 03:18 Total Bilirubin 0.9 mg/dL (0.2-1.2) 10/04/20 03:29 AST 22 U/L (5-34) 10/04/20 03:29 ALT 20 U/L (8-55) 10/04/20 03:29 Alkaline Phosphatase 87 U/L (40-110) 10/04/20 03:29 Ammonia 40 umol/L (18-72) 10/01/20 12:21 Creatine Kinase 254 U/L (30-200) H 10/04/20 03:29 Troponin I Less than 0.010 ng/mL (< 0.028) 10/01/20 12:21 Serum Total Protein 7.1 g/dL (6.0-8.3) 10/04/20 03:29 Albumin 3.3 g/dL (3.5-5.0) L 10/04/20 03:29 Lipase 5 U/L (8-78) L 10/01/20 12:21 Urine Ketones 80 mg/dL (Negative) A 10/01/20 12:45 Urine Blood 2+ (Negative) A 10/01/20 12:45 Urine Nitrite Negative (Negative) 10/01/20 12:45 Ur Leukocyte Esterase Negative Papo/uL (Negative) 10/01/20 12:45 Urine RBC 0-3 HPF (0-3) 10/01/20 12:45 Urine WBC 4-6 HPF (0-3) A 10/01/20 12:45 Ur Squamous Epith Cells None Seen HPF (0-3) 10/01/20 12:45 Urine Bacteria 1+ HPF (None Seen) A 10/01/20 12:45 - Radiology Interpretation CT scan - head Additional Comment: Repeat head CT today showed large intra-axial left thalamic hematoma PN A/P (1) ICH (intracerebral hemorrhage) Code(s): I61.9 - NONTRAUMATIC INTRACEREBRAL HEMORRHAGE, UNSPECIFIED Status: Acute (2) Alcohol abuse Code(s): F10.10 - ALCOHOL ABUSE, UNCOMPLICATED Status: Acute (3) Hyperglycemia Code(s): R73.9 - HYPERGLYCEMIA, UNSPECIFIED Status: Acute (4) Leukocytosis Code(s): D72.829 - ELEVATED WHITE BLOOD CELL COUNT, UNSPECIFIED Status: Acute - Plan Daily Plan: PT/OT, speech therapy, DVT proph w/SCDs Mr. Hernandez is a 50-year-old male with medical history significant for alcohol abuse, hypertension presented with altered mental status in the setting of hypertensive emergency. Patient is more awake today but does not follow commands or maintain eye contact. There is interval improvement in the mental status. EEG repeated yesterday due to increased somnolence which did not reveal any seizure activity. Head CT repeated today which showed stable left intra-axial thalamic hematoma. Initial HCT scan of the brain reviewed which was consistent with large intraparenchymal hemorrhage centered within the left thalamus with mild surrounding vasogenic edema with midline shift of 1.[address] angiogram of the brain was negative for aneurysm. Neurochecks every 4 hours. Strict control of hypertension. Patient is on Cardene drip for blood pressure control. N.p.o. till cleared by speech. Strict control of blood glucose. Patient has Dobbhoff tube for medications. Avoid antiplatelets or anticoagulants due to recent bleed. Telemetry to rule out arrhythmias. Continue medical management per primary team and neurosurgery. Plan discussed in detail with the nursing staff.
--- NOTE | 2020-10-06 13:29 | PDOC.NEUPN ---
- Subjective Encounter Date: 10/07/20 Subjective: Over night it was noted that the pts blood pressure was slightly elevated and he had a slight fever of 101.3 degrees. Today during rounding, the pt was sitting bedside, and could move the left side of his body a bit more today but still not the right. This is considered an improvement from yesterday. He is still able to track with his eyes, however he is still not able to maintain eye contact. And still does not have the ability to follow commands. Previously the day before, the pt appeared somnolent, only slightly alert, with the slight ability to move his limbs, and still could not maintain eye contact, but could move his eyes and react to stimuli. - Objective Vital Signs & Weight: Vital Signs (12 hours) Temp Pulse Resp BP Pulse Ox 10/06/20 11:42 100.5 F H 80 15 162/81 H 97 10/06/20 10:24 101.3 F H 76 17 138/73 10/06/20 08:57 96 10/06/20 07:53 99.8 F H 80 17 132/62 96 10/06/20 06:38 86 10/06/20 04:50 86 10/06/20 04:30 99.1 F 82 18 164/82 H 94 L 10/06/20 03:04 99 10/06/20 02:31 86 18 152/75 H Weight Admit Weight 68.5 kg Weight 70.7 kg Most Recent Monitor Data Heart Rate from ECG 78 NIBP 124/71 NIBP BP-Mean 88 Respiration from ECG 20 SpO2 100 I&O: 10/05/20 10/06/20 10/07/20 06:59 06:59 06:59 Intake Total 3133 1040 570 Output Total 1225 1400 Balance 1908 -360 570 Result Diagrams: 10/07/20 04:17 10/07/20 03:30 Additional Labs: Accuchecks 10/06/20 10/06/20 10/05/20 11:56 06:28 16:45 POC Glucose 243 H 251 H 179 H 10/05/20 11:58 POC Glucose 229 H Radiology Reviewed by me: Yes EKG Reviewed by me: Yes ROS - Review of Systems ROS unobtainable: due to mental status - Medication Medications: Active Medications Generic Name Dose Route Start Last Admin Trade Name Freq PRN Reason Stop Dose Admin Acetaminophen 650 mg 01/31/21 15:04 10/04/20 15:33 Acetaminophen 650 Mg/20.3 Ml Udcup PO 650 mg Q4H PRN Administration pain/fever Amlodipine Besylate 5 mg 10/04/20 21:00 10/06/20 08:38 Amlodipine 5 Mg Tab PER TUBE 5 mg BID BRII Administration Carvedilol 6.25 mg 10/05/20 21:00 10/06/20 08:38 Carvedilol 6.25 Mg Tab PER TUBE 6.25 mg BID BRII Administration Clonidine 0.1 mg 10/04/20 11:47 10/05/20 15:18 Clonidine 0.1 Mg Tab PO 0.1 mg Q4H PRN Administration SBP Greater Than 180 Clonidine 0.1 mg 10/05/20 12:00 10/06/20 11:47 Clonidine 0.1 Mg Tab PER TUBE 0.1 mg Q6HR BRII Administration Famotidine 20 mg 10/01/20 21:00 10/06/20 08:42 Famotidine/Pf 20 Mg/2ml Vial SLOW IVP 20 mg Q12HR BRII Administration Folic Acid 1 mg 10/06/20 09:00 10/06/20 08:38 Folic Acid 1 Mg Tab PER TUBE 1 mg DAILY BRII Administration Hydralazine HCl 5 mg 10/05/20 13:01 10/06/20 04:50 Hydralazine 20 Mg/Ml Vial SLOW IVP 5 mg Q4H PRN Administration Sbp Greater Than 140 Hydralazine HCl 25 mg 10/05/20 18:00 10/06/20 11:47 Hydralazine 25 Mg Tab PER TUBE 25 mg Q6HR BRII Administration Insulin Human Lispro 0 units 10/01/20 14:27 10/06/20 11:55 Humalog 300 Units/3 Ml Vial SC 3 unit .MILD SLIDING SCALE PRN Administration Mild Correctional Scale Insulin Human NPH 10 unit 10/03/20 21:00 10/06/20 08:48 Nph, Human Insulin Isophane 300 Unit/3 Ml Vial SC 10 unit BID BRII Administration Labetalol HCl 10 mg 10/05/20 13:08 10/05/20 15:35 Labetalol Hcl 100 Mg/20 Ml Vial SLOW IVP 10 mg Q4H PRN Administration Systolic BP > 140 Multivitamins 1 tab 10/06/20 09:00 10/06/20 08:42 Multivit, Therapeutic 1 Tab PER TUBE 1 tab DAILY BRII Administration Thiamine HCl 100 mg 10/02/20 15:00 10/05/20 14:34 Thiamine Hcl 200 Mg/2 Ml Vial SLOW IVP 100 mg Q24HR BRII Administration - Exam General Appearance: NAD Results - Labs Result Diagrams: 10/07/20 04:17 10/07/20 03:30 Lab results: WBC 11.0 thou/uL (4.8-10.8) H 10/05/20 03:40 Hgb 13.7 g/dL (14.0-18.0) L 10/05/20 03:40 Hct 39.4 % (42.0-52.0) L 10/05/20 03:40 MCV 97.9 fL (78.0-98.0) 10/05/20 03:40 Plt Count 208 thou/uL (130-400) 10/05/20 03:40 Neutrophils % 72.4 % (42.0-75.0) 10/05/20 03:40 Sodium 136 mmol/L (136-145) 10/06/20 03:18 Potassium 3.5 mmol/L (3.5-5.1) 10/06/20 03:18 Chloride 103 mmol/L (98-107) 10/06/20 03:18 Carbon Dioxide 24 mmol/L (22-29) 10/06/20 03:18 BUN 15 mg/dL (8.4-25.7) 10/06/20 03:18 Creatinine 0.64 mg/dL (0.7-1.3) L 10/06/20 03:18 Glucose 250 mg/dL (70-105) H 10/06/20 03:18 Calcium 8.0 mg/dL (7.8-10.44) 10/06/20 03:18 Total Bilirubin 0.9 mg/dL (0.2-1.2) 10/04/20 03:29 AST 22 U/L (5-34) 10/04/20 03:29 ALT 20 U/L (8-55) 10/04/20 03:29 Alkaline Phosphatase 87 U/L (40-110) 10/04/20 03:29 Ammonia 40 umol/L (18-72) 10/01/20 12:21 Creatine Kinase 254 U/L (30-200) H 10/04/20 03:29 Troponin I Less than 0.010 ng/mL (< 0.028) 10/01/20 12:21 Serum Total Protein 7.1 g/dL (6.0-8.3) 10/04/20 03:29 Albumin 3.3 g/dL (3.5-5.0) L 10/04/20 03:29 Lipase 5 U/L (8-78) L 10/01/20 12:21 Urine Ketones 80 mg/dL (Negative) A 10/01/20 12:45 Urine Blood 2+ (Negative) A 10/01/20 12:45 Urine Nitrite Negative (Negative) 10/01/20 12:45 Ur Leukocyte Esterase Negative Papo/uL (Negative) 10/01/20 12:45 Urine RBC 0-3 HPF (0-3) 10/01/20 12:45 Urine WBC 4-6 HPF (0-3) A 10/01/20 12:45 Ur Squamous Epith Cells None Seen HPF (0-3) 10/01/20 12:45 Urine Bacteria 1+ HPF (None Seen) A 10/01/20 12:45 PN A/P (1) AMS (altered mental status) Code(s): R41.82 - ALTERED MENTAL STATUS, UNSPECIFIED Status: Acute Plan: Altered mental status due to hemorrhagic infarct with vasogenic edemia. Hct stable. EEG x2 negative for seizure activity. (2) ICH (intracerebral hemorrhage) Code(s): I61.9 - NONTRAUMATIC INTRACEREBRAL HEMORRHAGE, UNSPECIFIED Status: Acute Qualifiers: Cerebral hemorrhage location: unspecified cerebral location Plan: 50 year old male with chronic alcohol abuse and hypertension presented as a Interventricular hemorrhage with surrounding edema, causing severe parenchymal hemorrhage. . Follow up Head CT which showed stable left intra-axial thalamic hematoma. Initial HCT scan of the brain reviewed which was consistent with large intraparenchymal hemorrhage centered within the left thalamus with mild surrounding vasogenic edema with midline shift of 1.[address] angiogram of the brain was negative for aneurysm. Neurochecks every 4 hours. Strict control of hypertension. Avoid antiplatelets or anticoagulants due to recent bleed. Continue medical management per primary team and neurosurgery. (3) Alcohol abuse Code(s): F10.10 - ALCOHOL ABUSE, UNCOMPLICATED Status: Acute (4) Hyperglycemia Code(s): R73.9 - HYPERGLYCEMIA, UNSPECIFIED Status: Acute Plan: Strict control of blood glucose Continue medical management per primary team. (5) Fever Code(s): R50.9 - FEVER, UNSPECIFIED Status: Acute Qualifiers: Fever type: unspecified Qualified Code(s): R50.9 - Fever, unspecified Plan: Non- infectious origin Continue Medical management with primary team - Plan Daily Plan: old records reviewed/req, PT/OT, speech therapy, DVT proph w/SCDs Plan discussed with the nursing staff.
[2020-10-06 14:58] LABS: Potassium 3.7 mmol/L (3.5-5.1); Sodium 136 mmol/L (136-145)
[2020-10-06] MEDS: Thiamine HCl 200 MG/2 ML VIAL SLOW IVP SCH (15:43)
--- NOTE | 2020-10-06 18:05 | PDOC.HOSPP ---
- Subjective Encounter Date: 10/06/20 Encounter Time: 12:30 non-verbal Subjective: Patient seen and examined for intracranial bleed. No significant change in mentation. Intermittent fever per RN - Objective Vital Signs & Weight: Vital Signs (12 hours) Temp Pulse Resp BP Pulse Ox 10/06/20 17:10 132/62 10/06/20 15:37 100.9 F H 80 18 151/73 H 95 10/06/20 11:42 100.5 F H 80 15 162/81 H 97 10/06/20 10:24 101.3 F H 76 17 138/73 10/06/20 08:57 96 10/06/20 07:53 99.8 F H 80 17 132/62 96 10/06/20 06:38 86 Weight Admit Weight 151 lb 0.266 oz Weight 155 lb 13.869 oz Most Recent Monitor Data Heart Rate from ECG 78 NIBP 124/71 NIBP BP-Mean 88 Respiration from ECG 20 SpO2 100 I&O: 10/05/20 10/06/20 10/07/20 06:59 06:59 06:59 Intake Total 3133 1040 1130 Output Total 1225 1400 Balance 1908 -360 1130 Result Diagrams: 10/05/20 03:40 10/06/20 13:50 Additional Labs: Accuchecks 10/06/20 10/06/20 10/06/20 17:38 11:56 06:28 POC Glucose 263 H 243 H 251 H 10/05/20 11:58 POC Glucose 229 H Radiology Reviewed by me: Yes (CT brainno new changes, chest x-rayno new infiltrate) EKG Reviewed by me: Yes (Sinus rhythm on telemetry) Hospitalist ROS - Review of Systems ROS unobtainable: due to mental status - Medication Medications: Active Medications Generic Name Dose Route Start Last Admin Trade Name Freq PRN Reason Stop Dose Admin Acetaminophen 650 mg 10/04/20 15:04 10/04/20 15:33 Acetaminophen 650 Mg/20.3 Ml Udcup PO 650 mg Q4H PRN Administration pain/fever Amlodipine Besylate 5 mg 10/04/20 21:00 10/06/20 08:38 Amlodipine 5 Mg Tab PER TUBE 5 mg BID BRII Administration Carvedilol 6.25 mg 10/05/20 21:00 10/06/20 08:38 Carvedilol 6.25 Mg Tab PER TUBE 6.25 mg BID BRII Administration Clonidine 0.1 mg 10/04/20 11:47 10/05/20 15:18 Clonidine 0.1 Mg Tab PO 0.1 mg Q4H PRN Administration SBP Greater Than 180 Clonidine 0.1 mg 10/05/20 12:00 10/06/20 17:11 Clonidine 0.1 Mg Tab PER TUBE 0.1 mg Q6HR BRII Administration Famotidine 20 mg 10/01/20 21:00 10/06/20 08:42 Famotidine/Pf 20 Mg/2ml Vial SLOW IVP 20 mg Q12HR BRII Administration Folic Acid 1 mg 10/06/20 09:00 10/06/20 08:38 Folic Acid 1 Mg Tab PER TUBE 1 mg DAILY BRII Administration Hydralazine HCl 5 mg 10/05/20 13:01 10/06/20 15:42 Hydralazine 20 Mg/Ml Vial SLOW IVP 5 mg Q4H PRN Administration Sbp Greater Than 140 Hydralazine HCl 25 mg 10/05/20 18:00 10/06/20 17:11 Hydralazine 25 Mg Tab PER TUBE 25 mg Q6HR BRII Administration Insulin Human Lispro 0 units 10/01/20 14:27 10/06/20 17:41 Humalog 300 Units/3 Ml Vial SC 4 unit .MILD SLIDING SCALE PRN Administration Mild Correctional Scale Labetalol HCl 10 mg 10/05/20 13:08 10/05/20 15:35 Labetalol Hcl 100 Mg/20 Ml Vial SLOW IVP 10 mg Q4H PRN Administration Systolic BP > 140 Multivitamins 1 tab 10/06/20 09:00 10/06/20 08:42 Multivit, Therapeutic 1 Tab PER TUBE 1 tab DAILY BRII Administration Thiamine HCl 100 mg 10/02/20 15:00 10/06/20 15:43 Thiamine Hcl 200 Mg/2 Ml Vial SLOW IVP 100 mg Q24HR BRII Administration Hospitalist Exam Vitals: Vital Signs (12 hours) Temp Pulse Resp BP Pulse Ox 10/06/20 17:10 132/62 10/06/20 15:37 100.9 F H 80 18 151/73 H 95 10/06/20 11:42 100.5 F H 80 15 162/81 H 97 10/06/20 10:24 101.3 F H 76 17 138/73 10/06/20 08:57 96 10/06/20 07:53 99.8 F H 80 17 132/62 96 10/06/20 06:38 86 Weight Admit Weight 151 lb 0.266 oz Weight 155 lb 13.869 oz Most Recent Monitor Data Heart Rate from ECG 78 NIBP 124/71 NIBP BP-Mean 88 Respiration from ECG 20 SpO2 100 General Appearance: NAD Heart: RRR, no gallops Respiratory: no wheezes, no ronchi Gastrointestinal: soft, no guarding, no rigidity Extremities: no cyanosis Neurological: no new deficit Neurological - other findings: No new changes Hosp A/P - Plan DVT proph w/SCDs 50-year-old male with unknown past history was brought in on 10/01 to the emergency room with altered mentation. CT scan of the brain was consistent with large intraparenchymal hemorrhage centered within the left thalamus with mild surrounding vasogenic edema with midline shift of 1.[address] angiogram of the brain was negative for aneurysm. Repeat CT brain next morning showed similar findings. He was started on Cardene drip. Dobbhoff tube was placed on 10/04 due to persistent somnolence. Impression: Encephalopathy due to large left thalamic bleed with midline shiftsuspected due to uncontrolled hypertension Uncontrolled diabetes mellitus type 2 with A1c of 10.4 History of alcohol abuse Hypokalemia Hypophosphatemia Plan: Continue close monitoring. Fever appears to be noninfectious in etiology. We will continue to feeding with a fluid restriction of 2 L a day per neurosurgery. Continue hydralazine, clonidine, amlodipine and carvedilol. Increase NPH to 15 units twice daily. Replace potassium. Continue supportive care. A.m. labs. 10/05 Cardene drip discontinued this morning. Discussed with neurosurgery who recommended systolic blood pressure goal below 140. Will add hydralazine. Increase clonidine frequency. Increase carvedilol dose. Continue tube feeding. Discontinue IV fluids. Replace magnesium and potassium recheck labs in a.m. intelligence manager consult for retirement facility placement. Transferred to stroke unit. Continue other medications as above. Not on antiplatelet agent due to intracranial bleed 10/[address] Dobbhoff tube and start tube feeding. Start amlodipine, carvedilol as well as clonidine. Wean Cardene drip as tolerated. Transfer to stroke unit once off Cardene drip. Continue NPH with sliding scale. DD use IV fluid to 50 mL/h. Continue thiamine. Add folic acid. Continue other medications as above. Replace phosphorus. A.m. labs. 10/03 Change IV fluid to D5 NS. Add NPH. Continue Cardene drip. Replace potassium. Recheck CK in a.m. Continue thiamine. Continue GI prophylaxis. A.m. labs. Patient will probably need NG tube for oral antihypertensives. Continue other medications as above. I attempted to call the family with no answer.
[2020-10-06] MEDS: Acetaminophen 650 MG/20.3 ML UDCUP PO PRN (23:09)
[2020-10-07 07:23] LABS: #Lymphocytes 1.7 thou/uL (1.20-3.40); #Monocytes 1.8 thou/uL (0.11-0.59); #Neutrophils 11.7 thou/uL (1.40-6.50); %Basophils 0.3 % (0.0-1.0); %Eosinophils 0.2 % (0.0-10.0); %Lymphocytes 11.1 % (21.0-51.0); %Monocytes 11.7 % (0.0-10.0); %Neutrophils 76.7 % (42.0-75.0); Hemoglobin 14.1 g/dL (14.0-18.0); Mean Corpuscular HGB CONC 34.2 g/dL (32.0-36.0); Mean Corpuscular Hemoglobin 32.5 pg (27.0-31.0); Mean Platelet Volume 8.5 fL (7.4-10.4); Platelet Count 228 thou/uL (130-400); RBC Distribution Width 11.6 % (11.5-14.5); Red Blood Cell (RBC) Count 4.33 mill/uL (4.70-6.10); White Blood Cell (WBC) Count 15.2 thou/uL (4.8-10.8)
[2020-10-07 07:23] LABS: Anion Gap 10 mmol/L (10-20); BUN (Urea Nitrogen) 19 mg/dL (8.4-25.7); Calc. Creatinine Clearance 133 mL/min (70-130); Calcium 8.5 mg/dL (7.8-10.44); Carbon Dioxide 28 mmol/L (22-29); Chloride 101 mmol/L (98-107); Glucose 209 mg/dL (70-105); Potassium 3.2 mmol/L (3.5-5.1); Sodium 136 mmol/L (136-145)
[2020-10-07] MEDS: hydrALAZINE 25 MG TAB PER TUBE SCH ×3 (07:29→15:08)
[2020-10-07] MEDS: cloNIDine 0.1 MG TAB PER TUBE SCH ×5 (07:29→23:28)
[2020-10-07] MEDS: hydrALAZINE 20 MG/ML VIAL SLOW IVP PRN ×2 (07:45→16:21)
--- NOTE | 2020-10-07 08:05 | PRG ---
DATE OF SERVICE: 10/07/2020 I saw Mr. Kolby Blanco in his hospital room this morning. No events were reported from yesterday. Overnight, the maximum temperature I see is 101.3 degrees Fahrenheit. This morning, he does not feel febrile. Blood pressures have been in the 140s to 160s. On examination, Mr. Kolby Blanco wakes to voice. He follows commands on the left side. He is weak on the right. His neurological examination is not changed. White blood cell count is 15.2 this morning. Sodium is 136. The recorded volume since midnight is 2.98 L, which is too much in the 7 hours between midnight and 6:59 when that was recorded. Mr. Kolby Blanco has had a hemorrhagic stroke involving the midbrain, thalamus, and ventricular system. The sodium is low and fluid keeps being administered at too high rate. Mr. Kolby Blanco now is febrile. The sources for the febrile illness could be the lungs, deep venous thrombosis, and urinary tract infection. These need to be investigated. Mr. Kolby Blanco would be ready for transfer to inpatient rehabilitation with medical issues are under better control. Job ID: [id number] [facility]
--- NOTE | 2020-10-07 09:48 | RAD ---
PA AND LATERAL CHEST: COMPARISON: 10/06/2020 exam. Review is also made of a 10/01/2020 exam. FINDINGS: This film is incorrectly labeled as right to left in comparison to previous studies. Heart size is b orderline. There is development of a left lower lobe infiltrative process. IMPRESSION: 1. Left lower lobe infiltrate. 2. Borderline heart size. 3. Scoliosis. POS: [facility]
--- NOTE | 2020-10-07 09:51 | ULT ---
EXAM: Bilateral lower extremity venous ultrasound HISTORY: Fever. Swelling and pain. COMPARISON: None TECHNIQUE: Multiplanar grayscale and color Doppler images were obtained in a bilateral lower extremit y venous ultrasound. Spectral analysis of the Doppler waveforms were performed. FINDINGS: The bilateral common femoral vein, profunda femoral veins, superficial femoral veins, and p opliteal veins are normal in appearance without visible thrombus. These vessels demonstrate normal compression, flow, and augmentation. The bilateral posterior tibial veins, profunda femoral veins and greater saphenous veins are patent w ithout evidence of DVT. IMPRESSION: No evidence of DVT in the left or right lower extremity.
[2020-10-07] MEDS: Famotidine/PF 20 mg/2ml Vial SLOW IVP SCH ×2 (10:21→21:15)
[2020-10-07] MEDS: Labetalol HCl 100 MG/20 ML VIAL SLOW IVP PRN ×3 (10:22→23:57)
[2020-10-07] MEDS: Carvedilol 6.25 MG TAB PER TUBE SCH (10:23)
[2020-10-07] MEDS: Amlodipine 5 MG TAB PER TUBE SCH (10:23)
[2020-10-07] MEDS: Folic Acid 1 MG TAB PER TUBE SCH (10:23)
[2020-10-07] MEDS: Multivit, Therapeutic 1 TAB PER TUBE SCH (10:24)
[2020-10-07] MEDS: NPH, Human Insulin Isophane 300 UNIT/3 ML VIAL SC SCH (10:24)
[2020-10-07] MEDS: HumaLOG 300 UNITS/3 ML VIAL SC PRN (12:32)
--- NOTE | 2020-10-07 12:57 | PDOC.NEUPN ---
- Subjective Encounter Date: 10/07/20 Subjective: More awake today and participating with physical therapy. He is sitting by the side of the bed with assistance but leaning towards the right side because of weakness. - Objective Vital Signs & Weight: Vital Signs (12 hours) Temp Pulse Resp BP BP Pulse Ox 10/07/20 12:26 83 10/07/20 11:20 165/77 H 10/07/20 10:23 83 10/07/20 10:22 84 172/84 H 10/07/20 08:02 98.0 F 83 19 155/77 H 94 L 10/07/20 07:45 78 160/86 H 10/07/20 07:29 78 160/86 H 10/07/20 07:24 96 10/07/20 04:00 97.7 F 75 18 143/72 H 97 Weight Admit Weight 151 lb 0.266 oz Weight 156 lb 8 oz Most Recent Monitor Data Heart Rate from ECG 78 NIBP 124/71 NIBP BP-Mean 88 Respiration from ECG 20 SpO2 100 I&O: 10/06/20 10/07/20 10/08/20 06:59 06:59 06:59 Intake Total 1040 2980 Output Total 1400 5 Balance -360 2975 Result Diagrams: 10/07/20 04:17 10/07/20 03:30 Additional Labs: Accuchecks 10/07/20 10/07/20 10/07/20 12:30 06:01 00:10 POC Glucose 193 H 161 H 281 H 10/06/20 17:38 POC Glucose 263 H Radiology Reviewed by me: Yes EKG Reviewed by me: Yes ROS - Review of Systems ROS unobtainable: due to mental status - Medication Medications: Active Medications Generic Name Dose Route Start Last Admin Trade Name Freq PRN Reason Stop Dose Admin Acetaminophen 650 mg 10/04/20 15:04 10/06/20 23:09 Acetaminophen 650 Mg/20.3 Ml Udcup PO 650 mg Q4H PRN Administration pain/fever Amlodipine Besylate 5 mg 10/04/20 21:00 10/07/20 10:23 Amlodipine 5 Mg Tab PER TUBE Not Given BID BRII Carvedilol 6.25 mg 10/05/20 21:00 10/07/20 10:23 Carvedilol 6.25 Mg Tab PER TUBE Not Given BID BRII Clonidine 0.1 mg 10/04/20 11:47 10/05/20 15:18 Clonidine 0.1 Mg Tab PO 0.1 mg Q4H PRN Administration SBP Greater Than 180 Clonidine 0.1 mg 10/05/20 12:00 10/07/20 12:26 Clonidine 0.1 Mg Tab PER TUBE 0.1 mg Q6HR BRII Administration Famotidine 20 mg 10/01/20 21:00 10/07/20 10:21 Famotidine/Pf 20 Mg/2ml Vial SLOW IVP 20 mg Q12HR BRII Administration Folic Acid 1 mg 10/06/20 09:00 10/07/20 10:23 Folic Acid 1 Mg Tab PER TUBE Not Given DAILY BRII Hydralazine HCl 5 mg 10/05/20 13:01 10/07/20 07:45 Hydralazine 20 Mg/Ml Vial SLOW IVP 5 mg Q4H PRN Administration Sbp Greater Than 140 Hydralazine HCl 25 mg 10/05/20 18:00 10/07/20 12:26 Hydralazine 25 Mg Tab PER TUBE 25 mg Q6HR BRII Administration Insulin Human Lispro 0 units 10/01/20 14:27 10/07/20 12:32 Humalog 300 Units/3 Ml Vial SC 2 unit .MILD SLIDING SCALE PRN Administration Mild Correctional Scale Insulin Human NPH 15 unit 10/06/20 21:00 10/07/20 10:24 Nph, Human Insulin Isophane 300 Unit/3 Ml Vial SC Not Given BID BRII Labetalol HCl 10 mg 10/05/20 13:08 10/07/20 10:22 Labetalol Hcl 100 Mg/20 Ml Vial SLOW IVP 10 mg Q4H PRN Administration Systolic BP > 140 Multivitamins 1 tab 10/06/20 09:00 10/07/20 10:24 Multivit, Therapeutic 1 Tab PER TUBE Not Given DAILY [facility] Thiamine HCl 100 mg 10/02/20 15:00 10/06/20 15:43 Thiamine Hcl 200 Mg/2 Ml Vial SLOW IVP 100 mg Q24HR BRII Administration - Exam General Appearance: NAD Eye: PERRL ENT: normocephalic atraumatic Neck: supple Respiratory: CTAB Cardiovascular: RRR Gastrointestinal: soft Extremities: no cyanosis Skin: normal turgor Neurological: no new deficit, facial droop, hemiplegia, speech deficit Musculoskeletal: normal tone, no muscle wasting PSYCH: not oriented Results - Labs Result Diagrams: 10/07/20 04:17 10/07/20 03:30 Lab results: WBC 15.2 thou/uL (4.8-10.8) H 10/07/20 04:17 Hgb 14.1 g/dL (14.0-18.0) 10/07/20 04:17 Hct 41.1 % (42.0-52.0) L 10/07/20 04:17 MCV 95.0 fL (78.0-98.0) 10/07/20 04:17 Plt Count 228 thou/uL (130-400) 10/07/20 04:17 Neutrophils % 76.7 % (42.0-75.0) H 10/07/20 04:17 Sodium 136 mmol/L (136-145) 10/07/20 03:30 Potassium 3.2 mmol/L (3.5-5.1) L 10/07/20 03:30 Chloride 101 mmol/L (98-107) 10/07/20 03:30 Carbon Dioxide 28 mmol/L (22-29) 10/07/20 03:30 BUN 19 mg/dL (8.4-25.7) 10/07/20 03:30 Creatinine 0.65 mg/dL (0.7-1.3) L 10/07/20 03:30 Glucose 209 mg/dL (70-105) H 10/07/20 03:30 Calcium 8.5 mg/dL (7.8-10.44) 10/07/20 03:30 Total Bilirubin 0.9 mg/dL (0.2-1.2) 10/04/20 03:29 AST 22 U/L (5-34) 10/04/20 03:29 ALT 20 U/L (8-55) 10/04/20 03:29 Alkaline Phosphatase 87 U/L (40-110) 10/04/20 03:29 Ammonia 40 umol/L (18-72) 10/01/20 12:21 Creatine Kinase 254 U/L (30-200) H 10/04/20 03:29 Troponin I Less than 0.010 ng/mL (< 0.028) 10/01/20 12:21 Serum Total Protein 7.1 g/dL (6.0-8.3) 10/04/20 03:29 Albumin 3.3 g/dL (3.5-5.0) L 10/04/20 03:29 Lipase 5 U/L (8-78) L 10/01/20 12:21 Urine Ketones 80 mg/dL (Negative) A 10/01/20 12:45 Urine Blood 2+ (Negative) A 10/01/20 12:45 Urine Nitrite Negative (Negative) 10/01/20 12:45 Ur Leukocyte Esterase Negative Papo/uL (Negative) 10/01/20 12:45 Urine RBC 0-3 HPF (0-3) 10/01/20 12:45 Urine WBC 4-6 HPF (0-3) A 10/01/20 12:45 Ur Squamous Epith Cells None Seen HPF (0-3) 10/01/20 12:45 Urine Bacteria 1+ HPF (None Seen) A 10/01/20 12:45 - Radiology Interpretation MRI - head Additional Comment: Head CT consistent with hemorrhagic stroke PN A/P (1) ICH (intracerebral hemorrhage) Code(s): I61.9 - NONTRAUMATIC INTRACEREBRAL HEMORRHAGE, UNSPECIFIED Status: Acute Qualifiers: Cerebral hemorrhage location: unspecified cerebral location Plan: (2) AMS (altered mental status) Code(s): R41.82 - ALTERED MENTAL STATUS, UNSPECIFIED Status: Acute Plan: (3) Alcohol abuse Code(s): F10.10 - ALCOHOL ABUSE, UNCOMPLICATED Status: Acute (4) Hyperglycemia Code(s): R73.9 - HYPERGLYCEMIA, UNSPECIFIED Status: Acute Plan: (5) Fever Code(s): R50.9 - FEVER, UNSPECIFIED Status: Acute - Plan Daily Plan: PT/OT, speech therapy, DVT proph w/SCDs 50-year-old with hemorrhagic stroke in the left thalamus with midline shift and the setting of hypertensive emergency. Patient is more awake today and is sitting with assistance of physical therapist on the side of the bed. There is interval improvement in the mental status. Repeat EEG due to increased somnolence which did not reveal any seizure activity. Repeat Head CT rshowed stable left intra-axial thalamic hematoma. Initial HCT scan of the brain reviewed which was consistent with large intrapar enchymal hemorrhage centered within the left thalamus with mild surrounding vasogenic edema with midline shift of 1.[address] angiogram of the brain was negative for aneurysm. Neurochecks every 4 hours. Patient had fever. Continue medical management per primary team Strict control of hypertension. Continue blood pressure management per primary team Strict control of blood glucose. Avoid antiplatelets or anticoagulants due to recent bleed. Telemetry to rule out arrhythmias. PT/OT/speech. Continue medical management per primary team and neurosurgery. Plan discussed in detail with the nursing staff.
--- NOTE | 2020-10-07 13:56 | RAD ---
KUB 10/07/20 COMPARISON: None. HISTORY: Nasogastric tube placement. FINDINGS: Supine imaging is provided, limiting assessment for free intraperitoneal air and bowel obstruction. T here is linear density in the let lung base with partial obscuration of the left hemidiaphragm, murphy r assessed on the 10/07/20 chest x-ray. There is a nasogastric tube extending into the left upper quadr ant, curling in the expected location of the gastric body/fundus. No evidence for bowel obstruction i s evident. IMPRESSION: Nasogastric tube as detailed above. POS: [facility]
[2020-10-07] MEDS ORDERED: HumaLOG 300 UNITS/3 ML VIAL SC PRN (15:00)
[2020-10-07] MEDS ORDERED: Dextrose 5 % And 0.9 % NaCl 1,000 ML IV SCH (15:00)
[2020-10-07] MEDS: Piperacillin/Tazobactam 3.375 GM in Sodium Chloride 0.9% 100 ML IVPB SCH ×2 (15:59→21:14)
[2020-10-07] MEDS: Thiamine HCl 200 MG/2 ML VIAL SLOW IVP SCH (16:00)
[2020-10-07 16:40] LABS: Bacteria/HPF None Seen HPF (None Seen); Bilirubin Negative (Negative); Blood, Urine 1+ (Negative); Clarity Turbid (Clear); Glucose, Urine (Dipstick) Greater than 1000 mg/dL (Negative); Ketone, Urine 20 mg/dL (Negative); Leukocyte Negative Leu/uL (Negative); Nitrite Negative (Negative); Protein, Urine (Dipstick) 100 mg/dL (Neg-Trace); RBC/HPF Greater than 50 HPF (0-3); Specific Gravity, Urine 1.023 (1.002-1.036); Squamous Epithelial None Seen HPF (0-3); Urobilinogen Normal mg/dL (Less than 2); WBC/HPF 0-3 HPF (0-3); Yeast-Budding 4+ HPF (None Seen)
--- NOTE | 2020-10-07 16:46 | OP ---
DATE OF PROCEDURE: 10/07/2020 I was contacted by the hospitalist managing the patient, reporting that his penis was swollen. On reviewing his chart, it appears this has been an issue since yesterday. On presenting to his bedside, I examined him and noted that he has a paraphimosis. The patient is not able to communicate currently. I reduced the edema and was able to stretch the foreskin back over the glans, returning it to its normal anatomic position. Care needs to be taken that when his foreskin is cleaned, it is returned over the glans. Should any new issues arise, I am available. Job ID: [id number]
[2020-10-07] MEDS ORDERED: hydrALAZINE 20 MG/ML VIAL SLOW IVP SCH (18:00)
[2020-10-07] MEDS ORDERED: Labetalol HCl 100 MG/20 ML VIAL SLOW IVP SCH (18:00)
--- NOTE | 2020-10-07 19:17 | PDOC.HOSPP ---
- Subjective Encounter Date: 10/07/20 Encounter Time: 15:00 non-verbal Subjective: Patient seen and examined for encephalopathy due to intracranial bleed. Penile swelling since yesterday. Intermittent fever for 9. No new focal deficit. Patient pulled NG tube. - Objective Vital Signs & Weight: Vital Signs (12 hours) Temp Pulse Pulse Pulse Resp BP BP 10/07/20 18:40 10/07/20 16:00 84 10/07/20 15:08 83 10/07/20 11:25 74 71 186/86 H 10/07/20 11:20 10/07/20 10:23 83 10/07/20 10:22 84 172/84 H 10/07/20 08:02 98.0 F 83 19 10/07/20 08:00 10/07/20 07:45 78 160/86 H 10/07/20 07:29 78 160/86 H 10/07/20 07:24 BP BP Pulse Ox 10/07/20 18:40 155/72 H 10/07/20 16:00 166/83 H 10/07/20 15:08 10/07/20 11:25 165/77 H 10/07/20 11:20 165/77 H 10/07/20 10:23 10/07/20 10:22 10/07/20 08:02 155/77 H 94 L 10/07/20 08:00 95 10/07/20 07:45 10/07/20 07:29 10/07/20 07:24 96 Weight Admit Weight 151 lb 0.266 oz Weight 156 lb 8 oz Most Recent Monitor Data Heart Rate from ECG 78 NIBP 124/71 NIBP BP-Mean 88 Respiration from ECG 20 SpO2 100 I&O: 10/06/20 10/07/20 10/08/20 06:59 06:59 06:59 Intake Total 1040 2980 350 Output Total 1400 5 1200 Balance -360 2975 -850 Result Diagrams: 10/07/20 04:17 10/07/20 03:30 Additional Labs: Accuchecks 10/07/20 10/07/20 10/07/20 18:19 12:30 06:01 POC Glucose 197 H 193 H 161 H 10/07/20 00:10 POC Glucose 281 H Radiology Reviewed by me: Yes (Chest x-ray showed left lower lobe infiltrate) EKG Reviewed by me: Yes (Sinus rhythm on telemetry) Hospitalist ROS - Review of Systems ROS unobtainable: due to mental status - Medication Medications: Active Medications Generic Name Dose Route Start Last Admin Trade Name Freq PRN Reason Stop Dose Admin Acetaminophen 650 mg 10/04/20 15:04 10/06/20 23:09 Acetaminophen 650 Mg/20.3 Ml Udcup PO 650 mg Q4H PRN Administration pain/fever Amlodipine Besylate 5 mg 10/04/20 21:00 10/07/20 10:23 Amlodipine 5 Mg Tab PER TUBE Not Given BID BRII Carvedilol 6.25 mg 10/05/20 21:00 10/07/20 10:23 Carvedilol 6.25 Mg Tab PER TUBE Not Given BID BRII Clonidine 0.1 mg 10/04/20 11:47 10/05/20 15:18 Clonidine 0.1 Mg Tab PO 0.1 mg Q4H PRN Administration SBP Greater Than 180 Clonidine 0.1 mg 10/05/20 12:00 10/07/20 17:40 Clonidine 0.1 Mg Tab PER TUBE Not Given Q6HR BRII Famotidine 20 mg 10/01/20 21:00 10/07/20 10:21 Famotidine/Pf 20 Mg/2ml Vial SLOW IVP 20 mg Q12HR BRII Administration Folic Acid 1 mg 10/06/20 09:00 10/07/20 10:23 Folic Acid 1 Mg Tab PER TUBE Not Given DAILY BRII Hydralazine HCl 5 mg 10/05/20 13:01 10/07/20 16:21 Hydralazine 20 Mg/Ml Vial SLOW IVP 5 mg Q4H PRN Administration Sbp Greater Than 140 Hydralazine HCl 25 mg 10/05/20 18:00 10/07/20 15:08 Hydralazine 25 Mg Tab PER TUBE Not Given Q6HR BRII Piperacillin Sod/Tazobactam 100 mls @ 200 mls/hr 10/07/20 14:00 10/07/20 15:59 Sod 3.375 gm/ Sodium Chloride IVPB 100 mls 0200,0800,1400,2000 BRII Administration Labetalol HCl 10 mg 10/05/20 13:08 10/07/20 16:00 Labetalol Hcl 100 Mg/20 Ml Vial SLOW IVP 10 mg Q4H PRN Administration Systolic BP > 140 Multivitamins 1 tab 10/06/20 09:00 10/07/20 10:24 Multivit, Therapeutic 1 Tab PER TUBE Not Given DAILY [facility] Thiamine HCl 100 mg 10/02/20 15:00 10/07/20 16:00 Thiamine Hcl 200 Mg/2 Ml Vial SLOW IVP 100 mg Q24HR BRII Administration Hospitalist Exam Vitals: Vital Signs (12 hours) Temp Pulse Pulse Pulse Resp BP BP 10/07/20 18:40 10/07/20 16:00 84 10/07/20 15:08 83 10/07/20 11:25 74 71 186/86 H 10/07/20 11:20 10/07/20 10:23 83 10/07/20 10:22 84 172/84 H 10/07/20 08:02 98.0 F 83 19 10/07/20 08:00 10/07/20 07:45 78 160/86 H 10/07/20 07:29 78 160/86 H 10/07/20 07:24 BP BP Pulse Ox 10/07/20 18:40 155/72 H 10/07/20 16:00 166/83 H 10/07/20 15:08 10/07/20 11:25 165/77 H 10/07/20 11:20 165/77 H 10/07/20 10:23 10/07/20 10:22 10/07/20 08:02 155/77 H 94 L 10/07/20 08:00 95 10/07/20 07:45 10/07/20 07:29 10/07/20 07:24 96 Weight Admit Weight 151 lb 0.266 oz Weight 156 lb 8 oz Most Recent Monitor Data Heart Rate from ECG 78 NIBP 124/71 NIBP BP-Mean 88 Respiration from ECG 20 SpO2 100 General Appearance: ill appearing Neck: supple, no JVD Heart: RRR, no gallops, no rubs, normal peripheral pulses Respiratory: no wheezes, no tachypnea, rales (At left base), rhonchi Gastrointestinal: soft, normal bowel sounds, no guarding, no rigidity Neurological: no new deficit Neurological - other findings: Neuro/psychexam limited due to current mentation Musculoskeletal: generalized weakness Hosp A/P - Plan 50-year-old male with unknown past history was brought in on 10/01 to the emergency room with altered mentation. CT scan of the brain was consistent with large intraparenchymal hemorrhage centered within the left thalamus with mild surrounding vasogenic edema with midline shift of 1.[address] angiogram of the brain was negative for aneurysm. Repeat CT brain next morning showed similar findings. He was started on Cardene drip. Dobbhoff tube was placed on 10/04 due to persistent somnolence. Impression: Encephalopathy due to large left thalamic bleed with midline shiftsuspected due to uncontrolled hypertension Sepsis due to left lower lobe pneumonia? Aspiration Uncontrolled diabetes mellitus type 2 with A1c of 10.4 History of alcohol abuse Hypokalemia Hypophosphatemia Paraphimosis Plan: Urology input appreciated. Paraphimosis resolved. Will start IV Zosyn for aspiration pneumonia. Feeding tube was replaced however he pulled it again. Patient is scheduled for modified barium swallow in a.m. Will restart IV antihypertensives. Hold NPH. IV fluids discontinued. Venous Doppler negative. Check labs in a.m. 10/06 Continue close monitoring. Fever appears to be noninfectious in etiology. We will continue to feeding with a fluid restriction of 2 L a day per neurosurgery. Continue hydralazine, clonidine, amlodipine and carvedilol. Increase NPH to 15 units twice daily. Replace potassium. Continue supportive care. A.m. labs. 10/05 Cardene drip discontinued this morning. Discussed with neurosurgery who recommended systolic blood pressure goal below 140. Will add hydralazine. Increase clonidine frequency. Increase carvedilol dose. Continue tube feeding. Discontinue IV fluids. Replace magnesium and potassium recheck labs in a.m. manager placement consult for custodial facility placement. Transferred to stroke unit. Continue other medications as above. Not on antiplatelet agent due to intracranial bleed 10/[address] Dobbhoff tube and start tube feeding. Start amlodipine, carvedilol as well as clonidine. Wean Cardene drip as tolerated. Transfer to stroke unit once off Cardene drip. Continue NPH with sliding scale. DD use IV fluid to 50 mL/h. Continue thiamine. Add folic acid. Continue other medications as above. Replace phosphorus. A.m. labs. 10/03 Change IV fluid to D5 NS. Add NPH. Continue Cardene drip. Replace potassium. Recheck CK in a.m. Continue thiamine. Continue GI prophylaxis. A.m. labs. Patient will probably need NG tube for oral antihypertensives. Continue other medications as above. I attempted to call the family with no answer.
[2020-10-07] MEDS: Labetalol HCl 100 MG/20 ML VIAL SLOW IVP SCH (21:15)
[2020-10-07] MEDS: hydrALAZINE 20 MG/ML VIAL SLOW IVP SCH (22:22)
[2020-10-08] MEDS: Piperacillin/Tazobactam 3.375 GM in Sodium Chloride 0.9% 100 ML IVPB SCH ×4 (01:53→20:53)
[2020-10-08] MEDS: hydrALAZINE 20 MG/ML VIAL SLOW IVP SCH ×4 (04:40→21:01)
[2020-10-08] MEDS: Labetalol HCl 100 MG/20 ML VIAL SLOW IVP SCH ×4 (04:41→21:01)
[2020-10-08 04:56] LABS: Hemoglobin 14.9 g/dL (14.0-18.0); Mean Corpuscular HGB CONC 34.9 g/dL (32.0-36.0); Mean Corpuscular Hemoglobin 33.1 pg (27.0-31.0); Mean Corpuscular Volume 94.8 fL (78.0-98.0); Mean Platelet Volume 8.3 fL (7.4-10.4); Platelet Count 260 thou/uL (130-400); RBC Distribution Width 11.6 % (11.5-14.5); Red Blood Cell (RBC) Count 4.52 mill/uL (4.70-6.10); White Blood Cell (WBC) Count 17.3 thou/uL (4.8-10.8)
[2020-10-08] MEDS: cloNIDine 0.1 MG TAB PER TUBE SCH ×3 (05:14→17:56)
[2020-10-08 05:24] LABS: Anion Gap 16 mmol/L (10-20); BUN (Urea Nitrogen) 20 mg/dL (8.4-25.7); Calc. Creatinine Clearance 118 mL/min (70-130); Calcium 8.5 mg/dL (7.8-10.44); Carbon Dioxide 23 mmol/L (22-29); Chloride 100 mmol/L (98-107); Glucose 239 mg/dL (70-105); Potassium 3.4 mmol/L (3.5-5.1); Sodium 136 mmol/L (136-145)
[2020-10-08 05:44] LABS: Band 4 % (5-11); Lymphocytes 10 % (21-51); MDiff Complete? YES; Monocytes 12 % (0-10); Neutrophil 73 % (42-75); Reactive Lymphocytes 1 % (0-10)
[2020-10-08] MEDS: Insulin Regular 300 UNITS/3 ML VIAL SC PRN ×3 (06:16→17:35)
--- NOTE | 2020-10-08 07:26 | PRG ---
DATE OF SERVICE: I saw Mr. Kolby Blanco in his hospital room this morning. He is resting comfortably as I entered the room. No events have been reported to me overnight. The maximum temperature I see recorded is 100.0 degrees Fahrenheit. Blood pressures have been in the 150s to 170s which is still slightly too high. On examination Mr. Kolby Blanco opens his eyes with enough stimulation. Eventually follows commands with the left side, but the right side is quite densely paretic. White blood cell count is trending upwards to 17.3. Sodium is 136. An ultrasound of the lower extremities was negative for DVT. Mr. Kolby Blanco will need placement. First, we will have to decide on his nutritional status with a swallow test today. If the PEG is needed, then we will consult for that. Once that is in place, he can be referred for post acute care placement in either rehab or jail facility. A followup CT scan of the head will be arranged by our office in about 4 weeks. Job ID: [id number] MTDD
[2020-10-08] MEDS ORDERED: Potassium Chloride 20 MEQ/100 ML PREMIX BAG IVPB SCH (08:30)
[2020-10-08] MEDS: Famotidine/PF 20 mg/2ml Vial SLOW IVP SCH ×2 (09:55→20:55)
[2020-10-08] MEDS: Multivit, Therapeutic 1 TAB PER TUBE SCH (09:57)
[2020-10-08] MEDS: Folic Acid 1 MG TAB PER TUBE SCH (09:57)
--- NOTE | 2020-10-08 14:50 | RAD ---
Modified barium swallow HISTORY: Dysphagia following cerebral infarction. FINDINGS: Exam was performed in conjunction with speech pathology with multiple consistencies. Video review is available and demonstrates very poor oral control and delayed initiation of swallowing. Swallowing triggered when there is spill to the level of the valleculae and piriform sinuses. Large amount of residue within the mouth. No significant penetration. No evidence of aspiration. The esophagus below the level of the hypopharynx was not evaluated. Please see separate detailed report from speech pathology.
[2020-10-08] MEDS: Thiamine HCl 200 MG/2 ML VIAL SLOW IVP SCH (15:02)
--- NOTE | 2020-10-08 22:47 | PDOC.HOSPP ---
- Subjective Encounter Date: 10/08/20 Encounter Time: 11:00 non-verbal Subjective: Patient seen and examined for encephalopathy/intracranial bleed. No new overnight events - Objective Vital Signs & Weight: Vital Signs (12 hours) Temp Pulse Resp BP BP Pulse Ox 10/08/20 21:01 84 154/81 H 10/08/20 15:40 85 10/08/20 14:58 96.8 F L 85 16 147/82 H 96 10/08/20 11:45 98.2 F 79 16 129/66 95 Weight Admit Weight 151 lb 0.266 oz Weight 153 lb 0.013 oz Most Recent Monitor Data Heart Rate from ECG 78 NIBP 124/71 NIBP BP-Mean 88 Respiration from ECG 20 SpO2 100 I&O: 10/07/20 10/08/20 10/09/20 06:59 06:59 06:59 Intake Total 2980 564 290 Output Total 5 1200 Balance 2975 -126 290 Result Diagrams: 10/08/20 04:25 10/08/20 04:25 Additional Labs: Accuchecks 10/08/20 10/08/20 10/08/20 16:17 12:22 05:45 POC Glucose 200 H 235 H 257 H 10/07/20 23:44 POC Glucose 220 H EKG Reviewed by me: Yes (Sinus rhythm on telemetry) Hospitalist ROS - Review of Systems ROS unobtainable: due to mental status - Medication Medications: Active Medications Generic Name Dose Route Start Last Admin Trade Name Freq PRN Reason Stop Dose Admin Acetaminophen 650 mg 10/04/20 15:04 10/06/20 23:09 Acetaminophen 650 Mg/20.3 Ml Udcup PO 650 mg Q4H PRN Administration pain/fever Amlodipine Besylate 5 mg 10/04/20 21:00 10/07/20 10:23 Amlodipine 5 Mg Tab PER TUBE Not Given BID BRII Carvedilol 6.25 mg 10/05/20 21:00 10/07/20 10:23 Carvedilol 6.25 Mg Tab PER TUBE Not Given BID BRII Clonidine 0.1 mg 10/04/20 11:47 10/05/20 15:18 Clonidine 0.1 Mg Tab PO 0.1 mg Q4H PRN Administration SBP Greater Than 180 Clonidine 0.1 mg 10/05/20 12:00 10/08/20 17:56 Clonidine 0.1 Mg Tab PER TUBE Not Given Q6HR [facility] Famotidine 20 mg 10/01/20 21:00 10/08/20 20:55 Famotidine/Pf 20 Mg/2ml Vial SLOW IVP 20 mg Q12HR BRII Administration Folic Acid 1 mg 10/06/20 09:00 10/08/20 09:57 Folic Acid 1 Mg Tab PER TUBE Not Given DAILY [facility] Hydralazine HCl 5 mg 10/05/20 13:01 10/07/20 16:21 Hydralazine 20 Mg/Ml Vial SLOW IVP 5 mg Q4H PRN Administration Sbp Greater Than 140 Hydralazine HCl 25 mg 10/05/20 18:00 10/07/20 15:08 Hydralazine 25 Mg Tab PER TUBE Not Given Q6HR [facility] Hydralazine HCl 20 mg 10/07/20 22:00 10/08/20 21:01 Hydralazine 20 Mg/Ml Vial SLOW IVP 20 mg 0400,1000,1600,2200 [facility] Administration Piperacillin Sod/Tazobactam 100 mls @ 200 mls/hr 10/07/20 14:00 10/08/20 20:53 Sod 3.375 gm/ Sodium Chloride IVPB 100 mls 0200,0800,1400,2000 [facility] Administration Insulin Human Regular 0 units 10/07/20 17:12 10/08/20 17:35 Insulin Regular 300 Units/3 Ml Vial SC 2 unit .MILD SLIDING SCALE PRN Administration Mild Correctional Scale Labetalol HCl 10 mg 10/05/20 13:08 10/07/20 23:57 Labetalol Hcl 100 Mg/20 Ml Vial SLOW IVP 10 mg Q4H PRN Administration Systolic BP > 140 Labetalol HCl 20 mg 10/07/20 22:00 10/08/20 21:01 Labetalol Hcl 100 Mg/20 Ml Vial SLOW IVP 20 mg 0400,1000,1600,2200 [facility] Administration Multivitamins 1 tab 10/06/20 09:00 10/08/20 09:57 Multivit, Therapeutic 1 Tab PER TUBE Not Given DAILY [facility] Thiamine HCl 100 mg 10/02/20 15:00 10/08/20 15:02 Thiamine Hcl 200 Mg/2 Ml Vial SLOW IVP 100 mg Q24HR [facility] Administration Hospitalist Exam Vitals: Vital Signs (12 hours) Temp Pulse Resp BP BP Pulse Ox 10/08/20 21:01 84 154/81 H 10/08/20 15:40 85 10/08/20 14:58 96.8 F L 85 16 147/82 H 96 10/08/20 11:45 98.2 F 79 16 129/66 95 Weight Admit Weight 151 lb 0.266 oz Weight 153 lb 0.013 oz Most Recent Monitor Data Heart Rate from ECG 78 NIBP 124/71 NIBP BP-Mean 88 Respiration from ECG 20 SpO2 100 General Appearance: NAD Neck: supple, no JVD Heart: RRR, no gallops Respiratory: no wheezes Respiratory - other findings: Left basilar rales Gastrointestinal: soft, no guarding, no rigidity Extremities: no cyanosis Neurological - other findings: Exam limited due to current mentation Psychiatric - other findings: Not following commands Hosp A/P - Plan DVT proph w/SCDs (No heparin or Lovenox due to intracranial bleed) 50-year-old male with unknown past history was brought in on 10/01 to the emergency room with altered mentation. CT scan of the brain was consistent with large intraparenchymal hemorrhage centered within the left thalamus with mild s urrounding vasogenic edema with midline shift of 1.[address] angiogram of the brain was negative for aneurysm. Repeat CT brain next morning showed similar findings. He was started on Cardene drip. Dobbhoff tube was placed on 10/04 due to persistent somnolence. Patient pulled out Dobbhoff tube 2. He underwent modified barium swallow on 10/08 and was started on modified diet with risk. Impression: Encephalopathy due to large left thalamic bleed with midline shiftsuspected due to uncontrolled hypertension Sepsis due to left lower lobe pneumonia? Aspiration Uncontrolled diabetes mellitus type 2 with A1c of 10.4 History of alcohol abuse Hypokalemia Hypophosphatemia Paraphimosis Plan: Continue IV antihypertensive until patient is able to swallow orally well. Continue IV Zosyn for aspiration pneumonia. Urine cultures negative. Continue GI prophylaxis. Replace electrolytes per protocol. AM labs 2/3 Urology input appreciated. Paraphimosis resolved. Will start IV Zosyn for aspiration pneumonia. Feeding tube was replaced however he pulled it again. Patient is scheduled for modified barium swallow in a.m. Will restart IV antihypertensives. Hold NPH. IV fluids discontinued. Venous Doppler negative. Check labs in a.m. 10/06 Continue close monitoring. Fever appears to be noninfectious in etiology. We will continue to feeding with a fluid restriction of 2 L a day per neurosurgery. Continue hydralazine, clonidine, amlodipine and carvedilol. Increase NPH to 15 units twice daily. Replace potassium. Continue supportive care. A.m. labs. 10/05 Cardene drip discontinued this morning. Discussed with neurosurgery who recommended systolic blood pressure goal below 140. Will add hydralazine. Increase clonidine frequency. Increase carvedilol dose. Continue tube feeding. Discontinue IV fluids. Replace magnesium and potassium recheck labs in a.m. manager merchandising consult for [facility] facility placement. Transferred to stroke unit. Continue other medications as above. Not on antiplatelet agent due to intracranial bleed 10/[address] Dobbhoff tube and start tube feeding. Start amlodipine, carvedilol as well as clonidine. Wean Cardene drip as tolerated. Transfer to stroke unit once off Cardene drip. Continue NPH with sliding scale. DD use IV fluid to 50 mL/h. Continue thiamine. Add folic acid. Continue other medications as above. Replace phosphorus. A.m. labs. 10/03 Change IV fluid to D5 NS. Add NPH. Continue Cardene drip. Replace potassium. Recheck CK in a.m. Continue thiamine. Continue GI prophylaxis. A.m. labs. Patient will probably need NG tube for oral antihypertensives. Continue other medications as above. I attempted to call the family with no answer.
[2020-10-09] MEDS: Labetalol HCl 100 MG/20 ML VIAL SLOW IVP PRN (00:10)
[2020-10-09] MEDS: Piperacillin/Tazobactam 3.375 GM in Sodium Chloride 0.9% 100 ML IVPB SCH ×4 (02:12→22:22)
[2020-10-09 04:52] LABS: #Lymphocytes 1.2 thou/uL (1.20-3.40); #Monocytes 1.8 thou/uL (0.11-0.59); %Basophils 0.3 % (0.0-1.0); %Eosinophils 0.3 % (0.0-10.0); %Lymphocytes 8.5 % (21.0-51.0); %Monocytes 12.8 % (0.0-10.0); %Neutrophils 78.1 % (42.0-75.0); Hemoglobin 14.5 g/dL (14.0-18.0); Mean Corpuscular HGB CONC 34.8 g/dL (32.0-36.0); Mean Corpuscular Hemoglobin 33.6 pg (27.0-31.0); Mean Corpuscular Volume 96.5 fL (78.0-98.0); Mean Platelet Volume 8.4 fL (7.4-10.4); Platelet Count 261 thou/uL (130-400); RBC Distribution Width 11.5 % (11.5-14.5); Red Blood Cell (RBC) Count 4.31 mill/uL (4.70-6.10); White Blood Cell (WBC) Count 14.1 thou/uL (4.8-10.8)
[2020-10-09] MEDS: hydrALAZINE 20 MG/ML VIAL SLOW IVP SCH ×4 (04:55→22:24)
[2020-10-09] MEDS: Labetalol HCl 100 MG/20 ML VIAL SLOW IVP SCH ×4 (04:55→22:23)
[2020-10-09 05:02] LABS: Anion Gap 14 mmol/L (10-20); BUN (Urea Nitrogen) 20 mg/dL (8.4-25.7); Calc. Creatinine Clearance 124 mL/min (70-130); Calcium 8.4 mg/dL (7.8-10.44); Carbon Dioxide 24 mmol/L (22-29); Chloride 103 mmol/L (98-107); Glucose 209 mg/dL (70-105); Potassium 3.1 mmol/L (3.5-5.1); Sodium 138 mmol/L (136-145)
[2020-10-09] MEDS: Insulin Regular 300 UNITS/3 ML VIAL SC PRN ×2 (05:23→18:26)
--- NOTE | 2020-10-09 07:34 | PRG ---
DATE OF SERVICE: 10/09/2020 I saw Mr. Kolby Blanco in his hospital room this morning. He is over a week out from his admission for a spontaneous intracerebral hemorrhage involving the left midbrain, the left thalamus. Overnight, his maximum temperature recorded was 99.2 degrees Fahrenheit. Blood pressure has been in the 140s to 170s. Mr. Kolby Blanco is resting. He opens his eyes to voice. He is moving both legs and left upper extremity purposefully. The right arm is not moving. White blood cell count is 14.1. Sodium is 138. Yesterday's swallow study suggests that he would be safe with some thickened liquids and assistance in eating. No acute neurosurgical issues for Mr. Kolby Blanco. He is awaiting placement and as long as blood pressure is controlled, she should be ready to go. We will see him in the office in 3 to 4 weeks with a new CT scan of the head. Job ID: [id number] MTDD
[2020-10-09] MEDS ORDERED: Electrolyte Replacement Protocol FS PRN (07:45)
[2020-10-09] MEDS ORDERED: Potassium Bicarbonate/Cit Ac 20 MEQ TAB PER TUBE SCH (09:00)
[2020-10-09] MEDS: Famotidine/PF 20 mg/2ml Vial SLOW IVP SCH ×2 (10:16→22:22)
[2020-10-09] MEDS: Folic Acid 1 MG TAB PER TUBE SCH (10:17)
[2020-10-09] MEDS: Multivit, Therapeutic 1 TAB PER TUBE SCH (10:17)
[2020-10-09] MEDS: cloNIDine 0.1 MG TAB PO SCH ×3 (10:17→21:57)
[2020-10-09] MEDS: Thiamine HCl 200 MG/2 ML VIAL SLOW IVP SCH (15:26)
[2020-10-09] MEDS: Acetaminophen 650 MG/20.3 ML UDCUP PO PRN (15:48)
--- NOTE | 2020-10-09 22:50 | PDOC.HOSPP ---
- Subjective Encounter Date: 10/09/20 Encounter Time: 10:30 Subjective: Patient seen and examined for intracranial bleed with encephalopathy. No new focal deficit reported. No overnight events. - Objective Vital Signs & Weight: Vital Signs (12 hours) Temp Pulse Pulse Pulse Pulse Resp BP 10/09/20 22:24 79 10/09/20 22:23 79 10/09/20 19:35 98.9 F 79 16 10/09/20 17:55 77 10/09/20 15:23 81 157/78 H 10/09/20 15:22 81 157/78 H 10/09/20 15:21 99 F 87 16 10/09/20 14:20 82 10/09/20 13:08 88 77 89 10/09/20 12:00 98.3 F 83 13 BP BP BP BP Pulse Ox 10/09/20 22:24 10/09/20 22:23 10/09/20 19:35 123/69 95 10/09/20 17:55 119/65 10/09/20 15:23 10/09/20 15:22 10/09/20 15:21 157/78 H 98 10/09/20 14:20 152/73 H 10/09/20 13:08 140/73 143/74 H 148/72 H 10/09/20 12:00 148/76 H 97 Weight Admit Weight 151 lb 0.266 oz Weight 152 lb 10.595 oz Most Recent Monitor Data Heart Rate from ECG 78 NIBP 124/71 NIBP BP-Mean 88 Respiration from ECG 20 SpO2 100 I&O: 10/08/20 10/09/20 10/10/20 06:59 06:59 06:59 Intake Total 564 305 Output Total 1200 Balance -636 305 Result Diagrams: 10/09/20 04:07 10/10/20 04:09 Additional Labs: Accuchecks 10/09/20 10/09/20 10/09/20 17:06 05:33 00:04 POC Glucose 225 H 211 H 206 H Abnormal Lab Results - Last 48 hrs 10/09/20 04:07: Potassium 3.1 L, Creatinine 0.68 L 10/09/20 04:07: WBC 14.1 H, RBC 4.31 L, Hct 41.6 L, MCH 33.6 H, Neutrophils % 78.1 H, Lymphocytes % 8.5 L, Monocytes % 12.8 H, Neutrophils # 11.0 H, Monocytes # 1.8 H Microbiology - Entire Visit 10/07/20 15:56 Urine Straight Catheter Urine Culture - Final NO GROWTH AT 48 HOURS EKG Reviewed by me: Yes (Sinus rhythm on telemetry) Hospitalist ROS - Review of Systems ROS unobtainable: due to mental status - Medication Medications: Active Medications Generic Name Dose Route Start Last Admin Trade Name Freq PRN Reason Stop Dose Admin Acetaminophen 650 mg 10/04/20 15:04 10/09/20 15:48 Acetaminophen 650 Mg/20.3 Ml Udcup PO 650 mg Q4H PRN Administration pain/fever Amlodipine Besylate 5 mg 10/04/20 21:00 10/07/20 10:23 Amlodipine 5 Mg Tab PER TUBE Not Given BID BRII Carvedilol 6.25 mg 10/05/20 21:00 10/07/20 10:23 Carvedilol 6.25 Mg Tab PER TUBE Not Given BID BRII Clonidine 0.1 mg 10/04/20 11:47 10/05/20 15:18 Clonidine 0.1 Mg Tab PO 0.1 mg Q4H PRN Administration SBP Greater Than 180 Clonidine 0.1 mg 10/09/20 09:00 10/09/20 21:57 Clonidine 0.1 Mg Tab PO 0.1 mg TID BRII Administration Famotidine 20 mg 10/01/20 21:00 10/09/20 22:22 Famotidine/Pf 20 Mg/2ml Vial SLOW IVP 20 mg Q12HR BRII Administration Folic Acid 1 mg 10/06/20 09:00 10/09/20 10:17 Folic Acid 1 Mg Tab PER TUBE 1 mg DAILY BRII Administration Hydralazine HCl 5 mg 10/05/20 13:01 10/07/20 16:21 Hydralazine 20 Mg/Ml Vial SLOW IVP 5 mg Q4H PRN Administration Sbp Greater Than 140 Hydralazine HCl 25 mg 10/05/20 18:00 10/07/20 15:08 Hydralazine 25 Mg Tab PER TUBE Not Given Q6HR BRII Hydralazine HCl 20 mg 10/07/20 22:00 10/09/20 22:24 Hydralazine 20 Mg/Ml Vial SLOW IVP 20 mg 0400,1000,1600,2200 BRII Administration Piperacillin Sod/Tazobactam 100 mls @ 200 mls/hr 10/07/20 14:00 10/09/20 22:22 Sod 3.375 gm/ Sodium Chloride IVPB 100 mls 0200,0800,1400,2000 BRII Administration Insulin Human Regular 0 units 10/07/20 17:12 10/09/20 18:26 Insulin Regular 300 Units/3 Ml Vial SC 3 unit .MILD SLIDING SCALE PRN Administration Mild Correctional Scale Labetalol HCl 10 mg 10/05/20 13:08 10/09/20 00:10 Labetalol Hcl 100 Mg/20 Ml Vial SLOW IVP 10 mg Q4H PRN Administration Systolic BP > 140 Labetalol HCl 20 mg 10/07/20 22:00 10/09/20 22:23 Labetalol Hcl 100 Mg/20 Ml Vial SLOW IVP 20 mg 0400,1000,1600,2200 BRII Administration Multivitamins 1 tab 10/06/20 09:00 10/09/20 10:17 Multivit, Therapeutic 1 Tab PER TUBE 1 tab DAILY BRII Administration Thiamine HCl 100 mg 10/02/20 15:00 10/09/20 15:26 Thiamine Hcl 200 Mg/2 Ml Vial SLOW IVP 100 mg Q24HR BRII Administration Hospitalist Exam Vitals: Vital Signs (12 hours) Temp Pulse Pulse Pulse Pulse Resp BP 10/09/20 22:24 79 10/09/20 22:23 79 10/09/20 19:35 98.9 F 79 16 10/09/20 17:55 77 10/09/20 15:23 81 157/78 H 10/09/20 15:22 81 157/78 H 10/09/20 15:21 99 F 87 16 10/09/20 14:20 82 10/09/20 13:08 88 77 89 10/09/20 12:00 98.3 F 83 13 BP BP BP BP Pulse Ox 10/09/20 22:24 10/09/20 22:23 10/09/20 19:35 123/69 95 10/09/20 17:55 119/65 10/09/20 15:23 10/09/20 15:22 10/09/20 15:21 157/78 H 98 10/09/20 14:20 152/73 H 10/09/20 13:08 140/73 143/74 H 148/72 H 10/09/20 12:00 148/76 H 97 Weight Admit Weight 151 lb 0.266 oz Weight 152 lb 10.595 oz Most Recent Monitor Data Heart Rate from ECG 78 NIBP 124/71 NIBP BP-Mean 88 Respiration from ECG 20 SpO2 100 General Appearance: NAD Heart: RRR, no gallops, no rubs, normal peripheral pulses Respiratory: no wheezes, no rales, no ronchi, normal chest expansion Gastrointestinal: soft, normal bowel sounds, no guarding, no rigidity Extremities: no cyanosis, no clubbing Neurological - other findings: Neuro/psychexam unchanged Hosp A/P - Plan 50-year-old male with unknown past history was brought in on 10/01 to the emergency room with altered mentation. CT scan of the brain was consistent with large intraparenchymal hemorrhage centered within the left thalamus with mild surrounding vasogenic edema with midline shift of 1.[address] angiogram of the brain was negative for aneurysm. Repeat CT brain next morning showed similar findings. He was started on Cardene drip. Dobbhoff tube was placed on 10/04 due to persistent somnolence. Patient pulled out Dobbhoff tube 2. He underwent modified barium swallow on 10/08 and was started on modified diet with risk. Impression: Encephalopathy due to large left thalamic bleed with midline shiftsuspected due to uncontrolled hypertension Sepsis due to left lower lobe pneumonia? Aspiration Uncontrolled diabetes mellitus type 2 with A1c of 10.4 History of alcohol abuse Hypokalemia Hypophosphatemia Paraphimosis Plan: Continue parenteral antihypertensives until patient is tolerating p.o. well. Replace potassium. Continue modified diet. Discharge planning in progress. Continue other medications as above. Will add long-acting insulin if tolerating p.o. well. 10/08 Continue IV antihypertensive until patient is able to swallow orally well. Continue IV Zosyn for aspiration pneumonia. Urine cultures negative. Continue GI prophylaxis. Replace electrolytes per protocol. AM labs 2/3 Urology input appreciated. Paraphimosis resolved. Will start IV Zosyn for aspiration pneumonia. Feeding tube was replaced however he pulled it again. Patient is scheduled for modified barium swallow in a.m. Will restart IV antihypertensives. Hold NPH. IV fluids discontinued. Venous Doppler negative. Check labs in a.m. 2/ Continue close monitoring. Fever appears to be noninfectious in etiology. We will continue to feeding with a fluid restriction of 2 L a day per neurosurgery. Continue hydralazine, clonidine, amlodipine and carvedilol. Increase NPH to 15 units twice daily. Replace potassium. Continue supportive care. A.m. labs. 10/05 Cardene drip discontinued this morning. Discussed with neurosurgery who recommended systolic blood pressure goal below 140. Will add hydralazine. Increase clonidine frequency. Increase carvedilol dose. Continue tube feeding. Discontinue IV fluids. Replace magnesium and potassium recheck labs in a.m. sr community manager consult for detention facility placement. Transferred to stroke unit. Continue other medications as above. Not on antiplatelet agent due to intracranial bleed 10/[address] Dobbhoff tube and start tube feeding. Start amlodipine, carvedilol as well as clonidine. Wean Cardene drip as tolerated. Transfer to stroke unit once off Cardene drip. Continue NPH with sliding scale. DD use IV fluid to 50 mL/h. Continue thiamine. Add folic acid. Continue other medications as above. Replace phosphorus. A.m. labs. 10/03 Change IV fluid to D5 NS. Add NPH. Continue Cardene drip. Replace potassium. Recheck CK in a.m. Continue thiamine. Continue GI prophylaxis. A.m. labs. Patient will probably need NG tube for oral antihypertensives. Continue other medications as above. I attempted to call the family with no answer.
[2020-10-10] MEDS: Piperacillin/Tazobactam 3.375 GM in Sodium Chloride 0.9% 100 ML IVPB SCH ×4 (03:02→21:01)
[2020-10-10] MEDS: hydrALAZINE 20 MG/ML VIAL SLOW IVP SCH ×4 (03:03→21:01)
[2020-10-10] MEDS: Labetalol HCl 100 MG/20 ML VIAL SLOW IVP SCH ×4 (03:04→21:01)
[2020-10-10 04:53] LABS: Anion Gap 13 mmol/L (10-20); BUN (Urea Nitrogen) 20 mg/dL (8.4-25.7); Calc. Creatinine Clearance 130 mL/min (70-130); Calcium 8.4 mg/dL (7.8-10.44); Carbon Dioxide 24 mmol/L (22-29); Chloride 105 mmol/L (98-107); Glucose 206 mg/dL (70-105); Potassium 3.1 mmol/L (3.5-5.1); Sodium 139 mmol/L (136-145)
[2020-10-10] MEDS ORDERED: Potassium Phosphate 30 MMOL in Sodium Chloride 0.9% 250 ML 250 ML IVPB SCH (08:15)
[2020-10-10] MEDS: cloNIDine 0.1 MG TAB PO SCH ×3 (09:55→21:02)
[2020-10-10] MEDS: Multivit, Therapeutic 1 TAB PER TUBE SCH (09:56)
[2020-10-10] MEDS: Famotidine/PF 20 mg/2ml Vial SLOW IVP SCH ×2 (09:56→21:02)
[2020-10-10] MEDS: Folic Acid 1 MG TAB PER TUBE SCH (09:56)
[2020-10-10] MEDS: Thiamine HCl 200 MG/2 ML VIAL SLOW IVP SCH (15:21)
[2020-10-10] MEDS: Insulin Regular 300 UNITS/3 ML VIAL SC PRN (18:03)
--- NOTE | 2020-10-10 18:17 | PDOC.HOSPP ---
- Subjective Encounter Date: 10/10/20 Encounter Time: 10:00 non-verbal Subjective: Patient seen and examined for intracranial bleed. Follows commands intermittently per RN. Tolerating current consistency to some extent. - Objective Vital Signs & Weight: Vital Signs (12 hours) Temp Pulse Resp BP BP Pulse Ox 10/10/20 15:46 79 133/68 10/10/20 15:12 98.9 F 86 18 151/73 H 97 10/10/20 12:00 98.4 F 75 16 144/70 H 96 10/10/20 10:21 68 138/78 10/10/20 09:58 88 143/72 H 10/10/20 09:56 88 143/72 H 10/10/20 08:00 98.0 F 86 16 157/74 H 96 Weight Admit Weight 151 lb 0.266 oz Weight 151 lb 0.266 oz Most Recent Monitor Data Heart Rate from ECG 78 NIBP 124/71 NIBP BP-Mean 88 Respiration from ECG 20 SpO2 100 I&O: 10/09/20 10/10/20 10/11/20 06:59 06:59 06:59 Intake Total 305 215 Balance 305 215 Result Diagrams: 10/09/20 04:07 10/10/20 04:09 Additional Labs: Accuchecks 10/10/20 10/10/20 10/10/20 17:52 10:30 06:15 POC Glucose 204 H 190 H 178 H 10/10/20 00:18 POC Glucose 182 H Abnormal Lab Results - Last 48 hrs 10/09/20 04:07: Potassium 3.1 L, Creatinine 0.68 L 10/09/20 04:07: WBC 14.1 H, RBC 4.31 L, Hct 41.6 L, MCH 33.6 H, Neutrophils % 78.1 H, Lymphocytes % 8.5 L, Monocytes % 12.8 H, Neutrophils # 11.0 H, Monocytes # 1.8 H 10/10/20 04:09: Potassium 3.1 L, Creatinine 0.65 L Microbiology - Entire Visit 10/07/20 15:56 Urine Straight Catheter Urine Culture - Final NO GROWTH AT 48 HOURS EKG Reviewed by me: Yes (Sinus rhythm on telemetry) Hospitalist ROS - Review of Systems ROS unobtainable: due to mental status - Medication Medications: Active Medications Generic Name Dose Route Start Last Admin Trade Name Freq PRN Reason Stop Dose Admin Acetaminophen 650 mg 10/04/20 15:04 10/09/20 15:48 Acetaminophen 650 Mg/20.3 Ml Udcup PO 650 mg Q4H PRN Administration pain/fever Amlodipine Besylate 5 mg 10/04/20 21:00 10/07/20 10:23 Amlodipine 5 Mg Tab PER TUBE Not Given BID BRII Carvedilol 6.25 mg 10/05/20 21:00 10/07/20 10:23 Carvedilol 6.25 Mg Tab PER TUBE Not Given BID BRII Clonidine 0.1 mg 10/04/20 11:47 10/05/20 15:18 Clonidine 0.1 Mg Tab PO 0.1 mg Q4H PRN Administration SBP Greater Than 180 Clonidine 0.1 mg 10/09/20 09:00 10/10/20 15:21 Clonidine 0.1 Mg Tab PO 0.1 mg TID BRII Administration Famotidine 20 mg 10/01/20 21:00 10/10/20 09:56 Famotidine/Pf 20 Mg/2ml Vial SLOW IVP 20 mg Q12HR BRII Administration Folic Acid 1 mg 10/06/20 09:00 10/10/20 09:56 Folic Acid 1 Mg Tab PER TUBE 1 mg DAILY BRII Administration Hydralazine HCl 5 mg 10/05/20 13:01 10/07/20 16:21 Hydralazine 20 Mg/Ml Vial SLOW IVP 5 mg Q4H PRN Administration Sbp Greater Than 140 Hydralazine HCl 25 mg 10/05/20 18:00 10/07/20 15:08 Hydralazine 25 Mg Tab PER TUBE Not Given Q6HR BRII Hydralazine HCl 20 mg 10/07/20 22:00 10/10/20 15:22 Hydralazine 20 Mg/Ml Vial SLOW IVP 20 mg 0400,1000,1600,2200 BRII Administration Piperacillin Sod/Tazobactam 100 mls @ 200 mls/hr 10/07/20 14:00 10/10/20 15:21 Sod 3.375 gm/ Sodium Chloride IVPB 100 mls 0200,0800,1400,2000 BRII Administration Insulin Human Regular 0 units 10/07/20 17:12 10/10/20 18:03 Insulin Regular 300 Units/3 Ml Vial SC 3 unit .MILD SLIDING SCALE PRN Administration Mild Correctional Scale Labetalol HCl 10 mg 10/05/20 13:08 10/09/20 00:10 Labetalol Hcl 100 Mg/20 Ml Vial SLOW IVP 10 mg Q4H PRN Administration Systolic BP > 140 Labetalol HCl 20 mg 10/07/20 22:00 10/10/20 15:24 Labetalol Hcl 100 Mg/20 Ml Vial SLOW IVP 20 mg 0400,1000,1600,2200 BRII Administration Multivitamins 1 tab 10/06/20 09:00 10/10/20 09:56 Multivit, Therapeutic 1 Tab PER TUBE 1 tab DAILY BRII Administration Thiamine HCl 100 mg 10/02/20 15:00 10/10/20 15:21 Thiamine Hcl 200 Mg/2 Ml Vial SLOW IVP 100 mg Q24HR BRII Administration Hospitalist Exam Vitals: Vital Signs (12 hours) Temp Pulse Resp BP BP Pulse Ox 10/10/20 15:46 79 133/68 10/10/20 15:12 98.9 F 86 18 151/73 H 97 10/10/20 12:00 98.4 F 75 16 144/70 H 96 10/10/20 10:21 68 138/78 10/10/20 09:58 88 143/72 H 10/10/20 09:56 88 143/72 H 10/10/20 08:00 98.0 F 86 16 157/74 H 96 Weight Admit Weight 151 lb 0.266 oz Weight 151 lb 0.266 oz Most Recent Monitor Data Heart Rate from ECG 78 NIBP 124/71 NIBP BP-Mean 88 Respiration from ECG 20 SpO2 100 General Appearance: ill appearing Neck: supple, no JVD Heart: RRR, no gallops, no rubs, normal peripheral pulses Respiratory: no wheezes, no ronchi, normal chest expansion, no tachypnea Respiratory - other findings: Scattered rales at bases Gastrointestinal: soft, non-tender, normal bowel sounds, no guarding, no rigidity Extremities: no cyanosis, no clubbing, no edema Neurological - other findings: Neuro/psychexam limited due to current mentation Hosp A/P - Plan DVT proph w/SCDs 50-year-old male with unknown past history was brought in on 10/01 to the emergency room with altered mentation. CT scan of the brain was consistent with large intraparenchymal hemorrhage centered within the left thalamus with mild surrounding vasogenic edema with midline shift of 1.[address] angiogram of the brain was negative for aneurysm. Repeat CT brain next morning showed similar findings. He was started on Cardene drip. Dobbhoff tube was placed on 10/04 due to persistent somnolence. Patient pulled out Dobbhoff tube 2. He underwent modified barium swallow on 10/08 and was started on modified diet with risk. Impression: Encephalopathy due to large left thalamic bleed with midline shiftsuspected due to uncontrolled hypertension S/p Cardene drip that was discontinued on 10/05 On IV hypertensive medications due to swallow dysfunction Oral antihypertensives are on hold due to current mentation Sepsis due to left lower lobe pneumonia? Aspiration On Zosynstarted on 10/07 Uncontrolled diabetes mellitus type 2 with A1c of 10.4 On sliding scale History of alcohol abuse On thiamine, folic acid and multivitamin Hypokalemia/Hypophosphatemia On replacement as needed Paraphimosis Corrected by urology Swallow dysfunction Was placed on Dobbhoff tube that was pulled out by the patient at 2 different times Plan: Continue IV antihypertensives. Continue modified diet. Add calorie count. Will replace potassium. Continue sliding scale. Continue IV Zosyn for aspiration pneumonia. A.m. labs. Await placement.
--- NOTE | 2020-10-10 22:53 | EKG ---
Test Reason : Blood Pressure : / mmHG Vent. Rate : 099 BPM Atrial Rate : 099 BPM P-R Int : 128 ms QRS Dur : 068 ms QT Int : 402 ms P-R-T Axes : 039 066 099 degrees QTc Int : 515 ms Normal sinus rhythm Nonspecific T wave abnormality Prolonged QT Abnormal ECG Confirmed by ROYA REAL, LUCILLE ([id number]), editor book AMELIA DE LA ROSA ([id number]) on 10/10/2020 10:52:36 PM Referred By: Confirmed By:LUCILLE PRYOR MD
[2020-10-11] MEDS: Piperacillin/Tazobactam 3.375 GM in Sodium Chloride 0.9% 100 ML IVPB SCH ×4 (01:54→21:08)
[2020-10-11 04:53] LABS: #Basophils 0.1 thou/uL (0.0-0.2); #Eosinphils 0.1 thou/uL (0.0-0.7); #Lymphocytes 1.5 thou/uL (1.20-3.40); #Monocytes 1.5 thou/uL (0.11-0.59); #Neutrophils 9.5 thou/uL (1.40-6.50); %Basophils 0.5 % (0.0-1.0); %Eosinophils 0.6 % (0.0-10.0); %Lymphocytes 11.5 % (21.0-51.0); %Monocytes 11.9 % (0.0-10.0); %Neutrophils 75.6 % (42.0-75.0); Hemoglobin 13.6 g/dL (14.0-18.0); Mean Corpuscular HGB CONC 33.3 g/dL (32.0-36.0); Mean Corpuscular Hemoglobin 31.9 pg (27.0-31.0); Mean Corpuscular Volume 95.7 fL (78.0-98.0); Mean Platelet Volume 7.3 fL (7.4-10.4); Platelet Count 331 thou/uL (130-400); RBC Distribution Width 11.4 % (11.5-14.5); Red Blood Cell (RBC) Count 4.26 mill/uL (4.70-6.10); White Blood Cell (WBC) Count 12.6 thou/uL (4.8-10.8)
[2020-10-11 05:11] LABS: Anion Gap 15 mmol/L (10-20); BUN (Urea Nitrogen) 19 mg/dL (8.4-25.7); Calc. Creatinine Clearance 131 mL/min (70-130); Calcium 8.6 mg/dL (7.8-10.44); Carbon Dioxide 24 mmol/L (22-29); Chloride 106 mmol/L (98-107); Glucose 188 mg/dL (70-105); Potassium 3.1 mmol/L (3.5-5.1); Sodium 142 mmol/L (136-145)
[2020-10-11] MEDS: hydrALAZINE 20 MG/ML VIAL SLOW IVP SCH ×4 (05:15→22:52)
[2020-10-11] MEDS: Labetalol HCl 100 MG/20 ML VIAL SLOW IVP SCH ×4 (05:16→22:48)
[2020-10-11] MEDS: Insulin Regular 300 UNITS/3 ML VIAL SC PRN (06:40)
[2020-10-11] MEDS ORDERED: Potassium Phosphate 30 MMOL in Sodium Chloride 0.9% 500 ML IVPB SCH (10:45)
[2020-10-11] MEDS: Famotidine/PF 20 mg/2ml Vial SLOW IVP SCH ×2 (11:14→21:07)
[2020-10-11] MEDS: cloNIDine 0.1 MG TAB PO SCH ×3 (11:29→21:06)
[2020-10-11] MEDS: Folic Acid 1 MG TAB PER TUBE SCH (11:30)
[2020-10-11] MEDS: Multivit, Therapeutic 1 TAB PER TUBE SCH (11:30)
[2020-10-11] MEDS: Thiamine HCl 200 MG/2 ML VIAL SLOW IVP SCH (15:09)
--- NOTE | 2020-10-11 23:30 | PDOC.HOSPP ---
- Subjective Encounter Date: 10/11/20 Encounter Time: 10:30 Subjective: Patient seen and examined for altered mentation due to intracranial bleed. Intermittently follows commands. More somnolent. Poor appetite per RN. - Objective Vital Signs & Weight: Vital Signs (12 hours) Temp Pulse Resp BP BP Pulse Ox 10/11/20 22:52 84 160/79 H 10/11/20 22:48 84 160/79 H 10/11/20 18:13 82 147/74 H 10/11/20 15:48 98.8 F 89 18 161/77 H 97 10/11/20 11:55 99.0 F 85 12 154/80 H 98 Weight Admit Weight 151 lb 0.266 oz Weight 150 lb 2.157 oz Most Recent Monitor Data Heart Rate from ECG 78 NIBP 124/71 NIBP BP-Mean 88 Respiration from ECG 20 SpO2 100 I&O: 10/10/20 10/11/20 10/12/20 06:59 06:59 06:59 Intake Total 215 680 700 Balance 215 680 700 Result Diagrams: 10/11/20 04:35 10/11/20 04:35 Additional Labs: Accuchecks 10/11/20 10/11/20 10/11/20 18:02 12:51 05:59 POC Glucose 165 H 160 H 168 H 10/10/20 23:52 POC Glucose 162 H EKG Reviewed by me: Yes (Sinus rhythm on telemetry) Hospitalist ROS - Review of Systems ROS unobtainable: due to mental status - Medication Medications: Active Medications Generic Name Dose Route Start Last Admin Trade Name Freq PRN Reason Stop Dose Admin Acetaminophen 650 mg 10/04/20 15:04 10/09/20 15:48 Acetaminophen 650 Mg/20.3 Ml Udcup PO 650 mg Q4H PRN Administration pain/fever Amlodipine Besylate 5 mg 10/04/20 21:00 10/07/20 10:23 Amlodipine 5 Mg Tab PER TUBE Not Given BID BRII Carvedilol 6.25 mg 10/05/20 21:00 10/07/20 10:23 Carvedilol 6.25 Mg Tab PER TUBE Not Given BID BRII Clonidine 0.1 mg 10/04/20 11:47 10/05/20 15:18 Clonidine 0.1 Mg Tab PO 0.1 mg Q4H PRN Administration SBP Greater Than 180 Clonidine 0.1 mg 10/09/20 09:00 10/11/20 21:06 Clonidine 0.1 Mg Tab PO Not Given TID [facility] Famotidine 20 mg 10/01/20 21:00 10/11/20 21:07 Famotidine/Pf 20 Mg/2ml Vial SLOW IVP 20 mg Q12HR BRII Administration Folic Acid 1 mg 10/06/20 09:00 10/11/20 11:30 Folic Acid 1 Mg Tab PER TUBE Not Given DAILY [facility] Hydralazine HCl 5 mg 10/05/20 13:01 10/07/20 16:21 Hydralazine 20 Mg/Ml Vial SLOW IVP 5 mg Q4H PRN Administration Sbp Greater Than 140 Hydralazine HCl 25 mg 10/05/20 18:00 10/07/20 15:08 Hydralazine 25 Mg Tab PER TUBE Not Given Q6HR [facility] Hydralazine HCl 20 mg 10/07/20 22:00 10/11/20 22:52 Hydralazine 20 Mg/Ml Vial SLOW IVP 20 mg 0400,1000,1600,2200 BRII Administration Piperacillin Sod/Tazobactam 100 mls @ 200 mls/hr 10/07/20 14:00 10/11/20 21:08 Sod 3.375 gm/ Sodium Chloride IVPB 100 mls 0200,0800,1400,2000 BRII Administration Insulin Human Regular 0 units 10/07/20 17:12 10/11/20 06:40 Insulin Regular 300 Units/3 Ml Vial SC 2 unit .MILD SLIDING SCALE PRN Administration Mild Correctional Scale Labetalol HCl 10 mg 10/05/20 13:08 10/09/20 00:10 Labetalol Hcl 100 Mg/20 Ml Vial SLOW IVP 10 mg Q4H PRN Administration Systolic BP > 140 Labetalol HCl 20 mg 10/07/20 22:00 10/11/20 22:48 Labetalol Hcl 100 Mg/20 Ml Vial SLOW IVP 20 mg 0400,1000,1600,2200 BRII Administration Multivitamins 1 tab 10/06/20 09:00 10/11/20 11:30 Multivit, Therapeutic 1 Tab PER TUBE Not Given DAILY [facility] Thiamine HCl 100 mg 10/02/20 15:00 10/11/20 15:09 Thiamine Hcl 200 Mg/2 Ml Vial SLOW IVP 100 mg Q24HR BRII Administration Hospitalist Exam Vitals: Vital Signs (12 hours) Temp Pulse Resp BP BP Pulse Ox 10/11/20 22:52 84 160/79 H 10/11/20 22:48 84 160/79 H 10/11/20 18:13 82 147/74 H 10/11/20 15:48 98.8 F 89 18 161/77 H 97 10/11/20 11:55 99.0 F 85 12 154/80 H 98 Weight Admit Weight 151 lb 0.266 oz Weight 150 lb 2.157 oz Most Recent Monitor Data Heart Rate from ECG 78 NIBP 124/71 NIBP BP-Mean 88 Respiration from ECG 20 SpO2 100 General Appearance: ill appearing Neck: supple, symmetric, no JVD, no thyromegaly Heart: RRR, no gallops, no rubs, III/IV Respiratory: no wheezes, no rales, normal chest expansion, rhonchi Gastrointestinal: soft, non-distended, normal bowel sounds, no guarding, no rigidity Extremities: no cyanosis, no edema Skin: normal turgor Neurological: no new deficit Musculoskeletal: normal tone, no muscle wasting Psychiatric: normal affect, A&O x 3 Hosp A/P - Plan DVT proph w/SCDs 50-year-old male with unknown past history was brought in on 10/01 to the emergency room with altered mentation. CT scan of the brain was consistent with large intraparenchymal hemorrhage centered within the left thalamus with mild surrounding vasogenic edema with midline shift of 1.[address] angiogram of the brain was negative for aneurysm. Repeat CT brain next morning showed similar findings. He was started on Cardene drip. Dobbhoff tube was placed on 10/04 due to persistent somnolence. Patient pulled out Dobbhoff tube 2. He underwent mo dified barium swallow on 10/08 and was started on modified diet with risk. Impression: Encephalopathy due to large left thalamic bleed with midline shiftsuspected due to uncontrolled hypertension S/p Cardene drip that was discontinued on 10/05 On IV hypertensive medications due to swallow dysfunction Oral antihypertensives are on hold due to current mentation Sepsis due to left lower lobe pneumonia? Aspiration On Zosynstarted on 10/07 Uncontrolled diabetes mellitus type 2 with A1c of 10.4 On sliding scale History of alcohol abuse On thiamine, folic acid and multivitamin Hypokalemia/Hypophosphatemia On replacement as needed Paraphimosis Corrected by urology Swallow dysfunction Was placed on Dobbhoff tube that was pulled out by the patient at 2 different times If patient continues to have poor appetite then will probably need either Dobbhoff tube or PEG tube. Disposition Patient will probably need [place] or rehab placement. Case discussed with patient's brother at the bedside
[2020-10-12] MEDS: Piperacillin/Tazobactam 3.375 GM in Sodium Chloride 0.9% 100 ML IVPB SCH ×4 (02:28→21:25)
[2020-10-12] MEDS: Labetalol HCl 100 MG/20 ML VIAL SLOW IVP SCH ×4 (04:40→21:26)
[2020-10-12] MEDS: hydrALAZINE 20 MG/ML VIAL SLOW IVP SCH ×4 (04:42→21:28)
[2020-10-12] MEDS: cloNIDine 0.1 MG TAB PO SCH ×3 (10:36→23:56)
[2020-10-12] MEDS: Famotidine/PF 20 mg/2ml Vial SLOW IVP SCH ×2 (10:36→21:28)
[2020-10-12] MEDS: Folic Acid 1 MG TAB PER TUBE SCH (10:37)
[2020-10-12] MEDS: Multivit, Therapeutic 1 TAB PER TUBE SCH (10:37)
[2020-10-12] MEDS: Thiamine HCl 200 MG/2 ML VIAL SLOW IVP SCH (14:47)
--- NOTE | 2020-10-12 17:29 | CON ---
DATE OF CONSULTATION: 10/12/2020 REQUESTING PHYSICIAN: Delta Zhou MD REASON FOR CONSULTATION: Consider PEG tube placement. HISTORY OF PRESENT ILLNESS: Amari Blanco is a 50-year-old man, who unfortunately was admitted to the hospital on 10/01/2020 after being found down at home. He was found to have a large left thalamic stroke with intracranial hemorrhage and midline shift. His hospitalization has been complicated by left lower lobe pneumonia for which he is receiving antibiotics. He is essentially aphasic, contracted and noncommunicative. He was evaluated formally by speech pathology on 10/08/2020 with modified barium swallow. He was found to have oral dysphagia, though actually no aspiration was noted on that exam, but since that time, he has essentially been refusing food, not meeting his caloric needs for the past several days. We are consulted to consider PEG tube placement. He is not on any anticoagulation. It does not appear he has had any abdominal surgery in the past. REVIEW OF SYSTEMS: Unable to obtain due to the patient's altered mental status. PAST MEDICAL HISTORY: 1. Hemorrhagic stroke on 10/01/2020. 2. Alcohol use. FAMILY HISTORY: Mother has hypertension. SOCIAL HISTORY: The patient lives alone and is single. I spoke on the phone with his brother, Estefani at [phone]. The patient evidently drinks a great deal of beer every day. 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 MEDICATIONS: 1. Tylenol Elixir. 2. Clonidine. 3. Pepcid 20 mg IV q.12 hours. 4. Hydralazine p.r.n. 5. Insulin sliding scale. 6. Labetalol. 7. Zosyn 3.375 mg IV q.6 hours. 8. Thiamine. ALLERGIES: NO KNOWN DRUG ALLERGIES. PHYSICAL EXAMINATION: VITAL SIGNS: Temperature 99.6, pulse 84, blood pressure 136/66, oxygen saturation 98% on room air. GENERAL: A 50-year-old man, sitting up in bed. He is awake, but disoriented. He does not really respond to voice. He does withdraw to painful stimuli. SKIN: No jaundice. No rashes were palpable. EYES: No scleral icterus. Extraocular movements intact. ENT: The patient not cooperative with exam. Outer mucous membranes appear moist. HEART: Regular rate and rhythm. LUNGS: Clear to auscultation bilaterally. ABDOMEN: Nondistended. No surgical scars apparent to the upper abdomen. EXTREMITIES: No peripheral edema. VESSELS: Radial pulses 2+ bilaterally. NEURO: The patient does not follow commands. LABORATORY STUDIES: WBC 12.6, hemoglobin 13.6, and platelets 331. INR 1.1. Sodium 142, potassium 3.1, BUN 19, and creatinine 0.64. COVID PCR negative on admission. ASSESSMENT AND PLAN: 1. Oral dysphagia following hemorrhagic stroke. 2. Adult failure to thrive. 3. Malnutrition. I had a long discussion with the patient's brother, Sam at [phone] as well as his [id number]. The patient has been unable to meet his caloric needs orally since admission. I do think percutaneous endoscopic gastrostomy tube placement is appropriate in this setting. The patient will need an abdominal binder after the procedure to hopefully keep him from pulling on the percutaneous endoscopic gastrostomy. We discussed the potential benefits as well as the risks of percutaneous endoscopic gastrostomy tube placement and they desire us to proceed. We will schedule percutaneous endoscopic gastrostomy tube placement for tomorrow. Thank you for the consultation. Please call anytime with questions or concerns. Job ID: [id number] [id number]
--- NOTE | 2020-10-12 17:45 | PDOC.HOSPP ---
- Subjective Encounter Date: 10/12/20 Encounter Time: 08:30 Subjective: Patient seen for follow-up regarding encephalopathy. He is not answering questions, could not complete review of systems. - Objective Vital Signs & Weight: Vital Signs (12 hours) Temp Pulse Pulse Pulse Resp BP BP 10/12/20 15:45 96.5 F L 89 16 10/12/20 12:00 84 16 10/12/20 11:05 85 84 132/66 136/66 10/12/20 10:35 92 10/12/20 08:00 99.6 F 92 18 BP Pulse Ox 10/12/20 15:45 144/64 H 95 10/12/20 12:00 136/66 98 10/12/20 11:05 10/12/20 10:35 10/12/20 08:00 148/75 H 97 Weight Admit Weight 151 lb 0.266 oz Weight 147 lb 4.301 oz Most Recent Monitor Data Heart Rate from ECG 78 NIBP 124/71 NIBP BP-Mean 88 Respiration from ECG 20 SpO2 100 I&O: 10/11/20 10/12/20 10/13/20 06:59 06:59 06:59 Intake Total 680 1020 250 Balance 680 1020 250 Result Diagrams: 10/11/20 04:35 10/11/20 04:35 Additional Labs: Accuchecks 10/12/20 10/12/20 10/12/20 16:47 11:30 06:17 POC Glucose 148 H 154 H 156 H 10/11/20 10/11/20 23:37 18:02 POC Glucose 154 H 165 H I reviewed patient's labs and MAR EKG Reviewed by me: Yes (Normal sinus rhythm on telemetry) Hospitalist ROS - Review of Systems ROS unobtainable: due to mental status - Medication Medications: Active Medications Generic Name Dose Route Start Last Admin Trade Name Freq PRN Reason Stop Dose Admin Acetaminophen 650 mg 10/04/20 15:04 10/09/20 15:48 Acetaminophen 650 Mg/20.3 Ml Udcup PO 650 mg Q4H PRN Administration pain/fever Amlodipine Besylate 5 mg 10/04/20 21:00 10/07/20 10:23 Amlodipine 5 Mg Tab PER TUBE Not Given BID BRII Carvedilol 6.25 mg 10/05/20 21:00 10/07/20 10:23 Carvedilol 6.25 Mg Tab PER TUBE Not Given BID [facility] Clonidine 0.1 mg 10/04/20 11:47 10/05/20 15:18 Clonidine 0.1 Mg Tab PO 0.1 mg Q4H PRN Administration SBP Greater Than 180 Clonidine 0.1 mg 10/09/20 09:00 10/12/20 14:46 Clonidine 0.1 Mg Tab PO Not Given TID BRII Famotidine 20 mg 10/01/20 21:00 10/12/20 10:36 Famotidine/Pf 20 Mg/2ml Vial SLOW IVP 20 mg Q12HR BRII Administration Folic Acid 1 mg 10/06/20 09:00 10/12/20 10:37 Folic Acid 1 Mg Tab PER TUBE Not Given DAILY [facility] Hydralazine HCl 5 mg 10/05/20 13:01 10/07/20 16:21 Hydralazine 20 Mg/Ml Vial SLOW IVP 5 mg Q4H PRN Administration Sbp Greater Than 140 Hydralazine HCl 25 mg 10/05/20 18:00 10/07/20 15:08 Hydralazine 25 Mg Tab PER TUBE Not Given Q6HR [facility] Hydralazine HCl 20 mg 10/07/20 22:00 10/12/20 16:36 Hydralazine 20 Mg/Ml Vial SLOW IVP 20 mg 0400,1000,1600,2200 BRII Administration Piperacillin Sod/Tazobactam 100 mls @ 200 mls/hr 10/07/20 14:00 10/12/20 14:44 Sod 3.375 gm/ Sodium Chloride IVPB 100 mls 0200,0800,1400,2000 BRII Administration Insulin Human Regular 0 units 10/07/20 17:12 10/11/20 06:40 Insulin Regular 300 Units/3 Ml Vial SC 2 unit .MILD SLIDING SCALE PRN Administration Mild Correctional Scale Labetalol HCl 10 mg 10/05/20 13:08 10/09/20 00:10 Labetalol Hcl 100 Mg/20 Ml Vial SLOW IVP 10 mg Q4H PRN Administration Systolic BP > 140 Labetalol HCl 20 mg 10/07/20 22:00 10/12/20 16:36 Labetalol Hcl 100 Mg/20 Ml Vial SLOW IVP 20 mg 0400,1000,1600,2200 BRII Administration Multivitamins 1 tab 10/06/20 09:00 10/12/20 10:37 Multivit, Therapeutic 1 Tab PER TUBE Not Given DAILY [facility] Thiamine HCl 100 mg 10/02/20 15:00 10/12/20 14:47 Thiamine Hcl 200 Mg/2 Ml Vial SLOW IVP 100 mg Q24HR [facility] Administration Hospitalist Exam Vitals: Vital Signs (12 hours) Temp Pulse Pulse Pulse Resp BP BP 10/12/20 15:45 96.5 F L 89 16 10/12/20 12:00 84 16 10/12/20 11:05 85 84 132/66 136/66 10/12/20 10:35 92 10/12/20 08:00 99.6 F 92 18 BP Pulse Ox 10/12/20 15:45 144/64 H 95 10/12/20 12:00 136/66 98 10/12/20 11:05 10/12/20 10:35 10/12/20 08:00 148/75 H 97 Weight Admit Weight 151 lb 0.266 oz Weight 147 lb 4.301 oz Most Recent Monitor Data Heart Rate from ECG 78 NIBP 124/71 NIBP BP-Mean 88 Respiration from ECG 20 SpO2 100 General Appearance: awake alert ENT: no oropharyngeal lesions Neck: supple Heart: RRR Respiratory: CTAB Gastrointestinal: soft, normal bowel sounds Skin: no rashes Psychiatric: normal affect Hosp A/P - Plan Assessment/plan: Encephalopathy due to large left thalamic bleed with midline shiftsuspected due to uncontrolled hypertension S/p Cardene drip On IV hypertensive medications Oral antihypertensives are on hold due to current mentation Sepsis due to left lower lobe pneumonia? Aspiration Continue Zosyn Uncontrolled diabetes mellitus type 2 with A1c of 10.4 Continue Accu-Cheks and insulin sliding scale History of alcohol abuse On thiamine, folic acid and multivitamin Hypokalemia/Hypophosphatemia Replace electrolytes as needed Paraphimosis Corrected by urology Swallow dysfunction -Discussed with patient's brother over the telephone. Will consult GI service for possible PEG tube placement. Disposition Patient will need to go home with family support at the time of discharge.
[2020-10-12 18:33] LABS: Hemoglobin 13.3 g/dL (14.0-18.0)
[2020-10-13] MEDS: Piperacillin/Tazobactam 3.375 GM in Sodium Chloride 0.9% 100 ML IVPB SCH ×4 (01:44→22:12)
[2020-10-13] MEDS: Labetalol HCl 100 MG/20 ML VIAL SLOW IVP SCH ×4 (04:45→22:30)
[2020-10-13] MEDS: hydrALAZINE 20 MG/ML VIAL SLOW IVP SCH ×4 (04:49→22:29)
[2020-10-13] MEDS ORDERED: Piperacillin/Tazobactam 3.375 GM VIAL ONE (10:12)
[2020-10-13] MEDS ORDERED: Sodium Chloride 0.9% 100 ML ONE (10:12)
[2020-10-13] MEDS ORDERED: Ondansetron PF 4 MG/2 ML Vial ONE (10:54)
[2020-10-13] MEDS ORDERED: PROPOFOL 200 MG/20 ML VIAL ONE (10:54)
--- NOTE | 2020-10-13 12:48 | OP ---
DATE OF PROCEDURE: 10/13/2020 PREPROCEDURE DIAGNOSES: CVA, oropharyngeal dysphagia. POSTPROCEDURE DIAGNOSES: 1. PEG tube by Ponsky pull technique. 2. Small ulcers in the duodenal bulb and second portion of the duodenum, consistent with stress ulceration. RECOMMENDATIONS: 1. Change H2 ro to PPI. 2. Start tube feeds and use of PEG in 3 hours for feeding and medicines. 3. Abdominal binder to keep the patient from pulling the tube out inadvertently. 4. We will instruct the nurses in cleaning and care for PEG tube site. ANESTHESIA: TIVA. ANTIBIOTICS: The patient was on Zosyn from the floor. No additional preoperative antibiotics were given. DESCRIPTION OF PROCEDURE: After the patient's family was informed of the risks, benefits, and possible complications of endoscopy including perforation, reaction to medication, and aspiration, informed consent was obtained, the patient was brought to endoscopy suite, where he was sedated in gradual fashion. Once he was comfortable, a bite block was placed in the incisural orifice. The endoscope was advanced through the esophagus, stomach, into second and third portions of the duodenum and slowly removed. Adequate place for PEG tube placement was identified by finger indentation and transillumination on the anterior gastric wall and the abdominal wall respectively, and a PEG tube was placed by Ponsky pull technique under sterile condition. Second-look confirmed good PEG tube placement. On initial evaluation, the stomach was otherwise normal, but there were erosions in the bulb of the duodenum and second portion, consistent with stress ulceration. There was no active bleeding. These were shallow, less than 5 mm to 1 cm in size. The scope was removed. The patient tolerated the procedure well. There were no complications. Second-look confirmed good placement. Job ID: [id number]
[2020-10-13] MEDS: cloNIDine 0.1 MG TAB PO SCH ×3 (14:04→22:29)
[2020-10-13] MEDS: Multivit, Therapeutic 1 TAB PER TUBE SCH (14:07)
[2020-10-13] MEDS: Folic Acid 1 MG TAB PER TUBE SCH (14:07)
[2020-10-13] MEDS: Famotidine/PF 20 mg/2ml Vial SLOW IVP SCH (14:38)
[2020-10-13] MEDS: Thiamine HCl 200 MG/2 ML VIAL SLOW IVP SCH (14:51)
--- NOTE | 2020-10-13 18:18 | PDOC.HOSPP ---
- Subjective Encounter Date: 10/13/20 Encounter Time: 12:00 Subjective: Patient seen for follow-up for acute encephalopathy. Patient unable to answer questions, could not complete review of systems. - Objective Vital Signs & Weight: Vital Signs (12 hours) Temp Pulse Resp BP BP BP Pulse Ox 10/13/20 17:23 83 127/74 10/13/20 15:51 98.8 F 83 16 123/64 97 10/13/20 15:34 123/64 10/13/20 14:20 86 158/76 H 10/13/20 14:08 158/76 H 10/13/20 14:04 169/86 H 10/13/20 07:35 98.6 F 87 16 145/76 H 97 Weight Admit Weight 151 lb 0.266 oz Weight 145 lb 11.609 oz Most Recent Monitor Data Heart Rate from ECG 78 NIBP 124/71 NIBP BP-Mean 88 Respiration from ECG 20 SpO2 100 I&O: 10/12/20 10/13/20 10/14/20 06:59 06:59 06:59 Intake Total 1020 250 120 Balance 1020 250 120 Result Diagrams: 10/12/20 18:19 10/11/20 04:35 Additional Labs: Accuchecks 10/13/20 10/13/20 10/13/20 16:31 06:13 03:37 POC Glucose 150 H 143 H 162 H 10/12/20 19:49 POC Glucose 150 H Labs and MAR reviewed by al Hospitalist ROS - Review of Systems ROS unobtainable: due to mental status - Medication Medications: Active Medications Generic Name Dose Route Start Last Admin Trade Name Dannyq PRN Reason Stop Dose Admin Acetaminophen 650 mg 10/04/20 15:04 10/09/20 15:48 Acetaminophen 650 Mg/20.3 Ml Udcup PO 650 mg Q4H PRN Administration pain/fever Amlodipine Besylate 5 mg 10/04/20 21:00 10/07/20 10:23 Amlodipine 5 Mg Tab PER TUBE Not Given BID BRII Carvedilol 6.25 mg 10/05/20 21:00 10/07/20 10:23 Carvedilol 6.25 Mg Tab PER TUBE Not Given BID BRII Clonidine 0.1 mg 10/04/20 11:47 10/05/20 15:18 Clonidine 0.1 Mg Tab PO 0.1 mg Q4H PRN Administration SBP Greater Than 180 Clonidine 0.1 mg 10/09/20 09:00 10/13/20 14:08 Clonidine 0.1 Mg Tab PO 0.1 mg TID BRII Administration Folic Acid 1 mg 10/06/20 09:00 10/13/20 14:07 Folic Acid 1 Mg Tab PER TUBE 1 mg DAILY BRII Administration Hydralazine HCl 5 mg 10/05/20 13:01 10/07/20 16:21 Hydralazine 20 Mg/Ml Vial SLOW IVP 5 mg Q4H PRN Administration Sbp Greater Than 140 Hydralazine HCl 25 mg 10/05/20 18:00 10/07/20 15:08 Hydralazine 25 Mg Tab PER TUBE Not Given Q6HR [facility] Hydralazine HCl 20 mg 10/07/20 22:00 10/13/20 17:23 Hydralazine 20 Mg/Ml Vial SLOW IVP Not Given 0400,1000,1600,2200 BRII Piperacillin Sod/Tazobactam 100 mls @ 200 mls/hr 10/07/20 14:00 10/13/20 14:08 Sod 3.375 gm/ Sodium Chloride IVPB 100 mls 0200,0800,1400,2000 [facility] Administration Insulin Human Regular 0 units 10/07/20 17:12 10/11/20 06:40 Insulin Regular 300 Units/3 Ml Vial SC 2 unit .MILD SLIDING SCALE PRN Administration Mild Correctional Scale Labetalol HCl 10 mg 10/05/20 13:08 10/09/20 00:10 Labetalol Hcl 100 Mg/20 Ml Vial SLOW IVP 10 mg Q4H PRN Administration Systolic BP > 140 Labetalol HCl 20 mg 10/07/20 22:00 10/13/20 17:23 Labetalol Hcl 100 Mg/20 Ml Vial SLOW IVP Not Given 0400,1000,1600,2200 BRII Multivitamins 1 tab 10/06/20 09:00 10/13/20 14:07 Multivit, Therapeutic 1 Tab PER TUBE 1 tab DAILY [facility] Administration Thiamine HCl 100 mg 10/02/20 15:00 10/13/20 14:51 Thiamine Hcl 200 Mg/2 Ml Vial SLOW IVP 100 mg Q24HR [facility] Administration Hospitalist Exam Vitals: Vital Signs (12 hours) Temp Pulse Resp BP BP BP Pulse Ox 10/13/20 17:23 83 127/74 10/13/20 15:51 98.8 F 83 16 123/64 97 10/13/20 15:34 123/64 10/13/20 14:20 86 158/76 H 10/13/20 14:08 158/76 H 10/13/20 14:04 169/86 H 10/13/20 07:35 98.6 F 87 16 145/76 H 97 Weight Admit Weight 151 lb 0.266 oz Weight 145 lb 11.609 oz Most Recent Monitor Data Heart Rate from ECG 78 NIBP 124/71 NIBP BP-Mean 88 Respiration from ECG 20 SpO2 100 Eye: anicteric sclera Neck: supple Heart: RRR Respiratory: CTAB Gastrointestinal: soft, non-tender Skin: no rashes Psychiatric: normal affect Hosp A/P - Plan Assessment/plan: Encephalopathy due to large left thalamic bleed with midline shiftsuspected due to uncontrolled hypertension S/p Cardene drip Continue IV hypertensive medications Sepsis due to left lower lobe pneumonia? Aspiration Patient is on Zosyn Uncontrolled diabetes mellitus type 2 with A1c of 10.4 Continue Accu-Cheks and insulin sliding scale History of alcohol abuse Continue thiamine, folic acid and multivitamin Hypokalemia/Hypophosphatemia Replace electrolytes as needed Paraphimosis Corrected by urology Swallow dysfunction -For PEG tube placement today Disposition Patient will need to go home with family support at the time of discharge.
[2020-10-13] MEDS: hydrALAZINE 25 MG TAB PER TUBE SCH (22:14)
[2020-10-13] MEDS: Amlodipine 5 MG TAB PER TUBE SCH (22:27)
[2020-10-13] MEDS: Carvedilol 6.25 MG TAB PER TUBE SCH (22:28)
[2020-10-13] MEDS: Acetaminophen 650 MG/20.3 ML UDCUP PO PRN (22:35)
[2020-10-14] MEDS: hydrALAZINE 25 MG TAB PER TUBE SCH ×4 (01:02→18:20)
[2020-10-14] MEDS: Piperacillin/Tazobactam 3.375 GM in Sodium Chloride 0.9% 100 ML IVPB SCH ×4 (02:56→21:36)
[2020-10-14] MEDS: hydrALAZINE 20 MG/ML VIAL SLOW IVP SCH ×4 (03:44→23:42)
[2020-10-14] MEDS: Labetalol HCl 100 MG/20 ML VIAL SLOW IVP SCH ×4 (03:48→22:16)
[2020-10-14] MEDS: Pantoprazole 40 MG GRANULES PACKET PER TUBE SCH (09:32)
[2020-10-14] MEDS: Carvedilol 6.25 MG TAB PER TUBE SCH ×2 (09:32→22:19)
[2020-10-14] MEDS: Folic Acid 1 MG TAB PER TUBE SCH (09:33)
[2020-10-14] MEDS: cloNIDine 0.1 MG TAB PO SCH ×3 (09:33→22:19)
[2020-10-14] MEDS: Amlodipine 5 MG TAB PER TUBE SCH ×2 (09:34→22:19)
[2020-10-14] MEDS: Multivit, Therapeutic 1 TAB PER TUBE SCH (09:35)
[2020-10-14] MEDS: Thiamine HCl 200 MG/2 ML VIAL SLOW IVP SCH (15:52)
--- NOTE | 2020-10-14 16:58 | PDOC.HOSPP ---
- Subjective Encounter Date: 10/14/20 Encounter Time: 11:00 Subjective: Patient seen in follow-up for intracranial bleed. He is nonverbal, could not complete review of systems. - Objective Vital Signs & Weight: Vital Signs (12 hours) Temp Pulse Pulse Resp BP BP BP 10/14/20 16:27 98.1 F 77 20 10/14/20 15:53 74 123/72 10/14/20 15:51 123/72 10/14/20 15:41 97.2 F L 74 15 10/14/20 12:18 75 117/66 10/14/20 12:15 75 120/68 10/14/20 12:14 98.4 F 75 15 10/14/20 09:34 77 129/66 10/14/20 09:33 129/66 10/14/20 09:32 129/66 10/14/20 08:44 74 133/74 134/72 10/14/20 07:33 97.5 F L 77 15 10/14/20 06:52 77 120/61 BP Pulse Ox 10/14/20 16:27 130/70 97 10/14/20 15:53 10/14/20 15:51 10/14/20 15:41 123/72 100 10/14/20 12:18 10/14/20 12:15 10/14/20 12:14 117/66 100 10/14/20 09:34 10/14/20 09:33 10/14/20 09:32 10/14/20 08:44 10/14/20 07:33 129/66 99 10/14/20 06:52 Weight Admit Weight 151 lb 0.266 oz Weight 147 lb 11.355 oz Most Recent Monitor Data Heart Rate from ECG 78 NIBP 124/71 NIBP BP-Mean 88 Respiration from ECG 20 SpO2 100 I&O: 10/13/20 10/14/20 10/15/20 06:59 06:59 06:59 Intake Total 250 720 711 Balance 250 720 711 Result Diagrams: 10/12/20 18:19 10/11/20 04:35 Additional Labs: Accuchecks 10/14/20 10/14/20 10/14/20 16:47 11:15 06:02 POC Glucose 151 H 153 H 129 H 10/14/20 00:22 POC Glucose 151 H I reviewed patient's labs and MAR Hospitalist ROS - Review of Systems ROS unobtainable: due to mental status - Medication Medications: Active Medications Generic Name Dose Route Start Last Admin Trade Name Jadiel PRN Reason Stop Dose Admin Acetaminophen 650 mg 10/04/20 15:04 10/13/20 22:35 Acetaminophen 650 Mg/20.3 Ml Udcup PO 650 mg Q4H PRN Administration pain/fever Amlodipine Besylate 5 mg 10/04/20 21:00 10/14/20 09:34 Amlodipine 5 Mg Tab PER TUBE 5 mg BID BRII Administration Carvedilol 6.25 mg 10/05/20 21:00 10/14/20 09:32 Carvedilol 6.25 Mg Tab PER TUBE 6.25 mg BID BRII Administration Clonidine 0.1 mg 10/04/20 11:47 10/05/20 15:18 Clonidine 0.1 Mg Tab PO 0.1 mg Q4H PRN Administration SBP Greater Than 180 Clonidine 0.1 mg 10/09/20 09:00 10/14/20 15:51 Clonidine 0.1 Mg Tab PO 0.1 mg TID BRII Administration Folic Acid 1 mg 10/06/20 09:00 10/14/20 09:33 Folic Acid 1 Mg Tab PER TUBE 1 mg DAILY BRII Administration Hydralazine HCl 5 mg 10/05/20 13:01 10/07/20 16:21 Hydralazine 20 Mg/Ml Vial SLOW IVP 5 mg Q4H PRN Administration Sbp Greater Than 140 Hydralazine HCl 25 mg 10/05/20 18:00 10/14/20 12:18 Hydralazine 25 Mg Tab PER TUBE 25 mg Q6HR BRII Administration Hydralazine HCl 20 mg 10/07/20 22:00 10/14/20 15:53 Hydralazine 20 Mg/Ml Vial SLOW IVP Not Given 0400,1000,1600,2200 BRII Piperacillin Sod/Tazobactam 100 mls @ 200 mls/hr 10/07/20 14:00 10/14/20 15:51 Sod 3.375 gm/ Sodium Chloride IVPB 100 mls 0200,0800,1400,2000 BRII Administration Insulin Human Regular 0 units 10/07/20 17:12 10/11/20 06:40 Insulin Regular 300 Units/3 Ml Vial SC 2 unit .MILD SLIDING SCALE PRN Administration Mild Correctional Scale Labetalol HCl 10 mg 10/05/20 13:08 10/09/20 00:10 Labetalol Hcl 100 Mg/20 Ml Vial SLOW IVP 10 mg Q4H PRN Administration Systolic BP > 140 Labetalol HCl 20 mg 10/07/20 22:00 10/14/20 15:53 Labetalol Hcl 100 Mg/20 Ml Vial SLOW IVP Not Given 0400,1000,1600,2200 BRII Multivitamins 1 tab 10/06/20 09:00 10/14/20 09:35 Multivit, Therapeutic 1 Tab PER TUBE 1 tab DAILY BRII Administration Pantoprazole Sodium 40 mg 10/14/20 09:00 10/14/20 09:32 Pantoprazole 40 Mg Granules Packet PER TUBE 40 mg DAILY BRII Administration Thiamine HCl 100 mg 10/02/20 15:00 10/14/20 15:52 Thiamine Hcl 200 Mg/2 Ml Vial SLOW IVP 100 mg Q24HR BRII Administration Hospitalist Exam Vitals: Vital Signs (12 hours) Temp Pulse Pulse Resp BP BP BP 10/14/20 16:27 98.1 F 77 20 10/14/20 15:53 74 123/72 10/14/20 15:51 123/72 10/14/20 15:41 97.2 F L 74 15 10/14/20 12:18 75 117/66 10/14/20 12:15 75 120/68 10/14/20 12:14 98.4 F 75 15 10/14/20 09:34 77 129/66 10/14/20 09:33 129/66 10/14/20 09:32 129/66 10/14/20 08:44 74 133/74 134/72 10/14/20 07:33 97.5 F L 77 15 10/14/20 06:52 77 120/61 BP Pulse Ox 10/14/20 16:27 130/70 97 10/14/20 15:53 10/14/20 15:51 10/14/20 15:41 123/72 100 10/14/20 12:18 10/14/20 12:15 10/14/20 12:14 117/66 100 10/14/20 09:34 10/14/20 09:33 10/14/20 09:32 10/14/20 08:44 10/14/20 07:33 129/66 99 10/14/20 06:52 Weight Admit Weight 151 lb 0.266 oz Weight 147 lb 11.355 oz Most Recent Monitor Data Heart Rate from ECG 78 NIBP 124/71 NIBP BP-Mean 88 Respiration from ECG 20 SpO2 100 General Appearance: awake alert ENT: normocephalic atraumatic, no oropharyngeal lesions Neck: no JVD, no thyromegaly Heart: RRR Respiratory: CTAB, no rales Gastrointestinal: soft Gastrointestinal - other findings: PEG tube Skin: no rashes Psychiatric: normal affect, normal behavior Hosp A/P - Plan Assessment/plan: Encephalopathy due to large left thalamic bleed with midline shiftsuspected due to uncontrolled hypertension Symptomatic management Sepsis due to left lower lobe pneumonia? Aspiration Continue Zosyn Uncontrolled diabetes mellitus type 2 with A1c of 10.4 Accu-Cheks and insulin sliding scale History of alcohol abuse Continue thiamine, folic acid and multivitamin Hypokalemia/Hypophosphatemia Replace electrolytes Paraphimosis Corrected by urology Swallow dysfunction -Patient had PEG tube placed, is on tube feeds. Disposition Patient will need to go home with family support at the time of discharge.
--- NOTE | 2020-10-14 22:46 | PRG ---
DATE OF SERVICE: 10/14/2020 REASON FOR CONSULTATION: Oropharyngeal dysphagia secondary to acute hemorrhagic stroke, now status post PEG tube placement. SUBJECTIVE: The patient underwent EGD with percutaneous gastrostomy tube placement yesterday with no immediate perioperative complications. Per nursing staff, there were no acute events or problems overnight. On evaluation of the patient today, he is completely unresponsive and did not participate in any verbal interview. Per the nursing staff, there is no mention of nausea, vomiting, fevers, chills, hematemesis, melena, or hematochezia. OBJECTIVE: VITAL SIGNS: Temperature 97.6, pulse 81, blood pressure 123/71, respiratory rate 18, saturating 98% on room air. GENERAL: The patient was lying in bed, in no acute distress. Not alert or oriented at all. CARDIOVASCULAR: Regular rate and rhythm. RESPIRATORY: Clear to auscultation bilaterally. ABDOMEN: Normoactive bowel sounds. Soft, nontender, nondistended. The gastrostomy tube was located in the left upper quadrant with dressings clean, dry, and intact. Upon further evaluation of the gastrostomy tube, it was a little tight upon the skin, so was loosened up to approximately 1 cm from the skin. EXTREMITIES: No cyanosis, clubbing, or edema. LABORATORY DATA: No current studies are available for review. IMAGING DATA: No current studies are available for review. ASSESSMENT AND PLAN: The patient is a 50-year-old male with past medical history of alcohol abuse and now an acute hemorrhagic stroke on September 24, 2020 with oropharyngeal dysphagia secondary to his hemorrhagic stroke. Oropharyngeal dysphagia. The patient initially presented to the hospital with an acute hemorrhagic stroke that has been fairly devastating in terms of the patient's functional status. The patient is no longer able to adequately interact with the environment around him nor is in a position to adequately feed himself and meet his daily caloric needs. Subsequently, he underwent percutaneous gastrostomy tube placement on October 13, 2020, with no periprocedural complications. On evaluation of the PEG tube today, it looked well with no evidence of purulence or increased bleeding. RECOMMENDATIONS: 1. We would defer to the dietary Services for tube feed recommendations. 2. Continue with standard gastrostomy tube care. 3. We would maintain a distance of approximately 1 cm between the external bladder bumper and the skin at all times. 4. If the patient inadvertently removes the gastrostomy tube within the next 6 weeks, I would recommend obtaining an urgent CT scan of the abdomen/pelvis in addition to urgent General Surgery consultation. We will sign off at this time. Please call with any questions. Job ID: [id number]
[2020-10-15] MEDS: hydrALAZINE 25 MG TAB PER TUBE SCH ×4 (00:33→19:00)
[2020-10-15] MEDS: Piperacillin/Tazobactam 3.375 GM in Sodium Chloride 0.9% 100 ML IVPB SCH ×4 (01:49→20:19)
[2020-10-15] MEDS: Labetalol HCl 100 MG/20 ML VIAL SLOW IVP SCH ×2 (03:47→19:52)
[2020-10-15] MEDS: hydrALAZINE 20 MG/ML VIAL SLOW IVP SCH ×3 (03:47→19:52)
[2020-10-15] MEDS: Amlodipine 5 MG TAB PER TUBE SCH ×2 (09:18→20:22)
[2020-10-15] MEDS: Carvedilol 6.25 MG TAB PER TUBE SCH ×2 (09:19→20:22)
[2020-10-15] MEDS: Multivit, Therapeutic 1 TAB PER TUBE SCH (09:19)
[2020-10-15] MEDS: Folic Acid 1 MG TAB PER TUBE SCH (09:20)
[2020-10-15] MEDS: Pantoprazole 40 MG GRANULES PACKET PER TUBE SCH (09:20)
[2020-10-15] MEDS: cloNIDine 0.1 MG TAB PER TUBE SCH ×3 (09:23→20:21)
[2020-10-15] MEDS: cloNIDine 0.1 MG TAB PO SCH (09:24)
[2020-10-15] MEDS ORDERED: cloNIDine 0.1 MG TAB PER TUBE PRN (09:30)
[2020-10-15] MEDS: Thiamine HCl 200 MG/2 ML VIAL SLOW IVP SCH (15:49)
[2020-10-15] MEDS: Insulin Regular 300 UNITS/3 ML VIAL SC PRN (15:55)
--- NOTE | 2020-10-15 19:25 | PDOC.HOSPP ---
- Subjective Encounter Date: 10/15/20 Encounter Time: 13:00 Subjective: Patient seen in follow-up for acute encephalopathy. Nonverbal, could not complete review of systems. - Objective Vital Signs & Weight: Vital Signs (12 hours) Temp Pulse Resp BP BP Pulse Ox 10/15/20 16:00 97.9 F 70 20 146/81 H 97 10/15/20 15:50 134/82 10/15/20 12:52 68 130/86 10/15/20 12:00 97.9 F 68 20 123/73 97 10/15/20 11:00 97.9 F 68 20 123/73 97 10/15/20 09:24 130/77 10/15/20 09:23 130/77 10/15/20 09:19 130/77 10/15/20 09:18 73 130/77 10/15/20 08:00 97.7 F 79 18 115/68 94 L 10/15/20 07:43 98.1 F 73 20 127/70 98 Weight Admit Weight 151 lb 0.266 oz Weight 154 lb 12.8 oz Most Recent Monitor Data Heart Rate from ECG 78 NIBP 124/71 NIBP BP-Mean 88 Respiration from ECG 20 SpO2 100 I&O: 10/14/20 10/15/20 10/16/20 06:59 06:59 06:59 Intake Total 720 1878 285 Balance 720 1878 285 Result Diagrams: 10/12/20 18:19 10/11/20 04:35 Additional Labs: Accuchecks 10/15/20 10/15/20 10/15/20 16:38 15:53 11:04 POC Glucose 215 H 238 H 187 H 10/15/20 10/14/20 04:24 19:33 POC Glucose 231 H 149 H Hospitalist ROS - Review of Systems ROS unobtainable: due to mental status - Medication Medications: Active Medications Generic Name Dose Route Start Last Admin Trade Name Freq PRN Reason Stop Dose Admin Acetaminophen 650 mg 10/04/20 15:04 10/13/20 22:35 Acetaminophen 650 Mg/20.3 Ml Udcup PO 650 mg Q4H PRN Administration pain/fever Amlodipine Besylate 5 mg 10/04/20 21:00 10/15/20 09:18 Amlodipine 5 Mg Tab PER TUBE 5 mg BID BRII Administration Carvedilol 6.25 mg 10/05/20 21:00 10/15/20 09:19 Carvedilol 6.25 Mg Tab PER TUBE 6.25 mg BID BRII Administration Clonidine 0.1 mg 10/15/20 15:00 10/15/20 15:50 Clonidine 0.1 Mg Tab PER TUBE 0.1 mg TID BRII Administration Folic Acid 1 mg 10/06/20 09:00 10/15/20 09:20 Folic Acid 1 Mg Tab PER TUBE 1 mg DAILY BRII Administration Hydralazine HCl 5 mg 10/05/20 13:01 10/07/20 16:21 Hydralazine 20 Mg/Ml Vial SLOW IVP 5 mg Q4H PRN Administration Sbp Greater Than 140 Hydralazine HCl 25 mg 10/05/20 18:00 10/15/20 12:52 Hydralazine 25 Mg Tab PER TUBE 25 mg Q6HR BRII Administration Piperacillin Sod/Tazobactam 100 mls @ 200 mls/hr 10/07/20 14:00 10/15/20 13:00 Sod 3.375 gm/ Sodium Chloride IVPB 100 mls 0200,0800,1400,2000 BRII Administration Insulin Human Regular 0 units 10/07/20 17:12 10/15/20 15:55 Insulin Regular 300 Units/3 Ml Vial SC 3 unit .MILD SLIDING SCALE PRN Administration Mild Correctional Scale Labetalol HCl 10 mg 10/05/20 13:08 10/09/20 00:10 Labetalol Hcl 100 Mg/20 Ml Vial SLOW IVP 10 mg Q4H PRN Administration Systolic BP > 140 Multivitamins 1 tab 10/06/20 09:00 10/15/20 09:19 Multivit, Therapeutic 1 Tab PER TUBE 1 tab DAILY BRII Administration Pantoprazole Sodium 40 mg 10/14/20 09:00 10/15/20 09:20 Pantoprazole 40 Mg Granules Packet PER TUBE 40 mg DAILY BRII Administration Thiamine HCl 100 mg 10/02/20 15:00 10/15/20 15:49 Thiamine Hcl 200 Mg/2 Ml Vial SLOW IVP 100 mg Q24HR BRII Administration Hospitalist Exam Vitals: Vital Signs (12 hours) Temp Pulse Resp BP BP Pulse Ox 10/15/20 16:00 97.9 F 70 20 146/81 H 97 10/15/20 15:50 134/82 10/15/20 12:52 68 130/86 10/15/20 12:00 97.9 F 68 20 123/73 97 10/15/20 11:00 97.9 F 68 20 123/73 97 10/15/20 09:24 130/77 10/15/20 09:23 130/77 10/15/20 09:19 130/77 10/15/20 09:18 73 130/77 10/15/20 08:00 97.7 F 79 18 115/68 94 L 10/15/20 07:43 98.1 F 73 20 127/70 98 Weight Admit Weight 151 lb 0.266 oz Weight 154 lb 12.8 oz Most Recent Monitor Data Heart Rate from ECG 78 NIBP 124/71 NIBP BP-Mean 88 Respiration from ECG 20 SpO2 100 Eye: anicteric sclera ENT: normocephalic atraumatic Neck: supple Heart: RRR Respiratory: CTAB Gastrointestinal: soft Gastrointestinal - other findings: Status post PEG tube Skin: no rashes Psychiatric - other findings: Unable to assess Hosp A/P - Plan Assessment/plan: Encephalopathy due to large left thalamic bleed with midline shiftsuspected due to uncontrolled hypertension Symptomatic management for now Sepsis due to left lower lobe pneumonia? Aspiration Continue Zosyn Uncontrolled diabetes mellitus type 2 with A1c of 10.4 Continue Accu-Cheks and insulin sliding scale History of alcohol abuse Continue thiamine, folic acid and multivitamin Hypokalemia/Hypophosphatemia Replace electrolytes Paraphimosis Corrected by urology Swallow dysfunction -Patient had PEG tube placed during this hospitalization, is on tube feeds. Disposition Patient will need to go home with family support at the time of discharge.
[2020-10-16] MEDS: hydrALAZINE 25 MG TAB PER TUBE SCH ×4 (01:10→19:38)
[2020-10-16] MEDS: Piperacillin/Tazobactam 3.375 GM in Sodium Chloride 0.9% 100 ML IVPB SCH ×4 (01:11→21:12)
[2020-10-16] MEDS: Insulin Regular 300 UNITS/3 ML VIAL SC PRN ×2 (05:34→12:25)
[2020-10-16 06:21] LABS: #Eosinphils 0.2 thou/uL (0.0-0.7); #Lymphocytes 1.3 thou/uL (1.20-3.40); #Neutrophils 9.6 thou/uL (1.40-6.50); %Basophils 0.4 % (0.0-1.0); %Eosinophils 1.5 % (0.0-10.0); %Lymphocytes 10.8 % (21.0-51.0); %Monocytes 8.5 % (0.0-10.0); %Neutrophils 78.8 % (42.0-75.0); Hemoglobin 12.8 g/dL (14.0-18.0); Mean Corpuscular HGB CONC 35.4 g/dL (32.0-36.0); Mean Corpuscular Hemoglobin 33.1 pg (27.0-31.0); Mean Corpuscular Volume 93.6 fL (78.0-98.0); Mean Platelet Volume 7.5 fL (7.4-10.4); Platelet Count 355 thou/uL (130-400); RBC Distribution Width 11.2 % (11.5-14.5); Red Blood Cell (RBC) Count 3.87 mill/uL (4.70-6.10); White Blood Cell (WBC) Count 12.2 thou/uL (4.8-10.8)
[2020-10-16 06:43] LABS: ALT (SGPT) 14 U/L (8-55); AST (SGOT) 21 U/L (5-34); Albumin 2.9 g/dL (3.5-5.0); Alkaline Phosphatase 121 U/L (40-110); Anion Gap 13 mmol/L (10-20); BUN (Urea Nitrogen) 9 mg/dL (8.4-25.7); Bilirubin, Total 0.5 mg/dL (0.2-1.2); Calc. Creatinine Clearance 148 mL/min (70-130); Carbon Dioxide 25 mmol/L (22-29); Chloride 99 mmol/L (98-107); Globulin 3.4 g/dL (2.4-3.5); Glucose 233 mg/dL (70-105); Potassium 3.5 mmol/L (3.5-5.1); Protein, Total 6.3 g/dL (6.0-8.3); Sodium 133 mmol/L (136-145)
[2020-10-16] MEDS ORDERED: Potassium Chloride 20 MEQ TAB PO SCH (07:00)
[2020-10-16] MEDS ORDERED: Potassium Bicarbonate/Cit Ac 20 MEQ TAB PO SCH (07:30)
[2020-10-16] MEDS: Multivit, Therapeutic 1 TAB PER TUBE SCH (08:24)
[2020-10-16] MEDS: Carvedilol 6.25 MG TAB PER TUBE SCH ×2 (08:24→21:13)
[2020-10-16] MEDS: Amlodipine 5 MG TAB PER TUBE SCH ×2 (08:24→21:13)
[2020-10-16] MEDS: Folic Acid 1 MG TAB PER TUBE SCH (08:25)
[2020-10-16] MEDS: cloNIDine 0.1 MG TAB PER TUBE SCH ×3 (08:25→21:13)
[2020-10-16] MEDS: Pantoprazole 40 MG GRANULES PACKET PER TUBE SCH (08:28)
[2020-10-16] MEDS: Thiamine HCl 200 MG/2 ML VIAL SLOW IVP SCH (15:52)
--- NOTE | 2020-10-16 18:22 | PDOC.HOSPP ---
- Subjective Encounter Date: 10/16/20 Encounter Time: 09:00 Subjective: Patient seen in follow-up for acute encephalopathy. Nonverbal, could not complete review of systems. - Objective Vital Signs & Weight: Vital Signs (12 hours) Temp Pulse Resp BP BP Pulse Ox 10/16/20 16:10 119/75 10/16/20 16:00 97.5 F L 77 22 H 128/79 97 10/16/20 12:39 79 128/80 10/16/20 12:00 97.6 F 79 22 H 120/74 96 10/16/20 08:25 131/77 10/16/20 08:24 78 131/77 10/16/20 08:00 97.7 F 78 22 H 117/71 96 Weight Admit Weight 151 lb 0.266 oz Weight 155 lb 5 oz Most Recent Monitor Data Heart Rate from ECG 78 NIBP 124/71 NIBP BP-Mean 88 Respiration from ECG 20 SpO2 100 I&O: 10/15/20 10/16/20 10/17/20 06:59 06:59 06:59 Intake Total 1878 1984 Balance 1878 1984 Result Diagrams: 10/16/20 05:12 10/16/20 05:12 Additional Labs: Accuchecks 10/16/20 10/16/20 10/16/20 16:28 11:37 04:16 POC Glucose 191 H 240 H 238 H 10/15/20 10/15/20 19:42 19:28 POC Glucose 166 H 162 H I reviewed patient's labs and MAR Hospitalist ROS - Review of Systems ROS unobtainable: due to mental status - Medication Medications: Active Medications Generic Name Dose Route Start Last Admin Trade Name Jadiel PRN Reason Stop Dose Admin Acetaminophen 650 mg 10/04/20 15:04 10/13/20 22:35 Acetaminophen 650 Mg/20.3 Ml Udcup PO 650 mg Q4H PRN Administration pain/fever Amlodipine Besylate 5 mg 10/04/20 21:00 10/16/20 08:24 Amlodipine 5 Mg Tab PER TUBE 5 mg BID BRII Administration Carvedilol 6.25 mg 10/05/20 21:00 10/16/20 08:24 Carvedilol 6.25 Mg Tab PER TUBE 6.25 mg BID BRII Administration Clonidine 0.1 mg 10/15/20 15:00 10/16/20 16:10 Clonidine 0.1 Mg Tab PER TUBE 0.1 mg TID BRII Administration Folic Acid 1 mg 10/06/20 09:00 10/16/20 08:25 Folic Acid 1 Mg Tab PER TUBE 1 mg DAILY BRII Administration Hydralazine HCl 5 mg 10/05/20 13:01 10/07/20 16:21 Hydralazine 20 Mg/Ml Vial SLOW IVP 5 mg Q4H PRN Administration Sbp Greater Than 140 Hydralazine HCl 25 mg 10/05/20 18:00 10/16/20 12:39 Hydralazine 25 Mg Tab PER TUBE 25 mg Q6HR BRII Administration Piperacillin Sod/Tazobactam 100 mls @ 200 mls/hr 10/07/20 14:00 10/16/20 14:49 Sod 3.375 gm/ Sodium Chloride IVPB 100 mls 0200,0800,1400,2000 BRII Administration Insulin Human Regular 0 units 10/07/20 17:12 10/16/20 12:25 Insulin Regular 300 Units/3 Ml Vial SC 3 unit .MILD SLIDING SCALE PRN Administration Mild Correctional Scale Labetalol HCl 10 mg 10/05/20 13:08 10/09/20 00:10 Labetalol Hcl 100 Mg/20 Ml Vial SLOW IVP 10 mg Q4H PRN Administration Systolic BP > 140 Multivitamins 1 tab 10/06/20 09:00 10/16/20 08:24 Multivit, Therapeutic 1 Tab PER TUBE 1 tab DAILY BRII Administration Pantoprazole Sodium 40 mg 10/14/20 09:00 10/16/20 08:28 Pantoprazole 40 Mg Granules Packet PER TUBE 40 mg DAILY BRII Administration Thiamine HCl 100 mg 10/02/20 15:00 10/16/20 15:52 Thiamine Hcl 200 Mg/2 Ml Vial SLOW IVP 100 mg Q24HR BRII Administration Hospitalist Exam Vitals: Vital Signs (12 hours) Temp Pulse Resp BP BP Pulse Ox 10/16/20 16:10 119/75 10/16/20 16:00 97.5 F L 77 22 H 128/79 97 10/16/20 12:39 79 128/80 10/16/20 12:00 97.6 F 79 22 H 120/74 96 10/16/20 08:25 131/77 10/16/20 08:24 78 131/77 10/16/20 08:00 97.7 F 78 22 H 117/71 96 Weight Admit Weight 151 lb 0.266 oz Weight 155 lb 5 oz Most Recent Monitor Data Heart Rate from ECG 78 NIBP 124/71 NIBP BP-Mean 88 Respiration from ECG 20 SpO2 100 Eye: anicteric sclera ENT: normocephalic atraumatic Neck: no lymphadenopathy Heart: RRR Respiratory: CTAB Gastrointestinal: soft Skin: no rashes Psychiatric: normal affect Hosp A/P - Plan 50-year-old male with unknown past history was brought in on 10/01 to the emergency room with altered mentation. CT scan of the brain was consistent with large intraparenchymal hemorrhage centered within the left thalamus with mild surrounding vasogenic edema with midline shift of 1.[address] angiogram of the brain was negative for aneurysm. Patient pulled out Dobbhoff tube 2. He underwent PEG tube placement. Family is planning to fly him to [place] with assistance from consulate. Assessment/plan: Encephalopathy due to large left thalamic bleed with midline shiftsuspected due to uncontrolled hypertension Symptomatic management Sepsis due to left lower lobe pneumonia? Aspiration Patient is on Zosyn Uncontrolled diabetes mellitus type 2 with A1c of 10.4 Continue Accu-Cheks and insulin sliding scale History of alcohol abuse Continue thiamine, folic acid and multivitamin Hypokalemia/Hypophosphatemia Replace electrolytes Paraphimosis Corrected by urology Swallow dysfunction -Patient had PEG tube placed during this hospitalization, is on tube feeds. Disposition Patient will need to go home with family support at the time of discharge. Patient's family wishes to take him to [place] by flight. Discussed with neurosurgery PA. They do not recommend flying at this time. They recommended follow-up in a couple of weeks in the office with a follow-up CT scan and then deciding what to do.
[2020-10-17] MEDS: Piperacillin/Tazobactam 3.375 GM in Sodium Chloride 0.9% 100 ML IVPB SCH ×4 (01:40→19:31)
[2020-10-17] MEDS: hydrALAZINE 25 MG TAB PER TUBE SCH ×2 (02:52→05:16)
[2020-10-17] MEDS: Insulin Regular 300 UNITS/3 ML VIAL SC PRN ×3 (06:14→16:53)
[2020-10-17] MEDS: Pantoprazole 40 MG GRANULES PACKET PER TUBE SCH (08:45)
[2020-10-17] MEDS: Carvedilol 6.25 MG TAB PER TUBE SCH (08:45)
[2020-10-17] MEDS: Folic Acid 1 MG TAB PER TUBE SCH (08:45)
[2020-10-17] MEDS: Multivit, Therapeutic 1 TAB PER TUBE SCH (08:45)
[2020-10-17] MEDS: cloNIDine 0.1 MG TAB PER TUBE SCH (08:48)
[2020-10-17] MEDS: Amlodipine 5 MG TAB PER TUBE SCH ×2 (08:48→21:29)
--- NOTE | 2020-10-17 11:17 | PDOC.HOSPP ---
- Subjective Encounter Date: 10/17/20 Encounter Time: 11:15 non-verbal Subjective: F/u: stroke The patient has no complaints. He correctly guessed how many fingers I had in front of him, but did not answer any other questions - Objective Vital Signs & Weight: Vital Signs (12 hours) Temp Pulse Resp BP BP Pulse Ox 10/17/20 08:48 74 114/71 10/17/20 07:25 98.2 F 74 18 108/68 95 10/17/20 05:16 66 126/73 10/17/20 02:52 73 103/66 10/16/20 23:53 97.8 F 73 16 103/66 96 Weight Admit Weight 151 lb 0.266 oz Weight 155 lb 7 oz Most Recent Monitor Data Heart Rate from ECG 78 NIBP 124/71 NIBP BP-Mean 88 Respiration from ECG 20 SpO2 100 I&O: 10/16/20 10/17/20 10/18/20 06:59 06:59 06:59 Intake Total 1984 2300 357 Balance 1984 2300 357 Result Diagrams: 10/16/20 05:12 10/16/20 05:12 Additional Labs: Accuchecks 10/17/20 10/16/20 10/16/20 05:59 19:37 18:23 POC Glucose 248 H 213 H 197 H 10/16/20 10/16/20 16:28 11:37 POC Glucose 191 H 240 H Hospitalist ROS - Review of Systems Constitutional: denies: fever, chills - Medication Medications: Active Medications Generic Name Dose Route Start Last Admin Trade Name Freq PRN Reason Stop Dose Admin Acetaminophen 650 mg 10/04/20 15:04 10/13/20 22:35 Acetaminophen 650 Mg/20.3 Ml Udcup PO 650 mg Q4H PRN Administration pain/fever Amlodipine Besylate 5 mg 10/04/20 21:00 10/17/20 08:48 Amlodipine 5 Mg Tab PER TUBE Not Given BID BRII Carvedilol 6.25 mg 10/05/20 21:00 10/17/20 08:45 Carvedilol 6.25 Mg Tab PER TUBE 6.25 mg BID BRII Administration Clonidine 0.1 mg 10/15/20 15:00 10/17/20 08:48 Clonidine 0.1 Mg Tab PER TUBE Not Given TID BRII Folic Acid 1 mg 10/06/20 09:00 10/17/20 08:45 Folic Acid 1 Mg Tab PER TUBE 1 mg DAILY BRII Administration Hydralazine HCl 5 mg 10/05/20 13:01 10/07/20 16:21 Hydralazine 20 Mg/Ml Vial SLOW IVP 5 mg Q4H PRN Administration Sbp Greater Than 140 Hydralazine HCl 25 mg 10/05/20 18:00 10/17/20 05:16 Hydralazine 25 Mg Tab PER TUBE 25 mg Q6HR BRII Administration Piperacillin Sod/Tazobactam 100 mls @ 200 mls/hr 10/07/20 14:00 10/17/20 08:45 Sod 3.375 gm/ Sodium Chloride IVPB 100 mls 0200,0800,1400,2000 BRII Administration Insulin Human Regular 0 units 10/07/20 17:12 10/17/20 06:14 Insulin Regular 300 Units/3 Ml Vial SC 3 unit .MILD SLIDING SCALE PRN Administration Mild Correctional Scale Labetalol HCl 10 mg 10/05/20 13:08 10/09/20 00:10 Labetalol Hcl 100 Mg/20 Ml Vial SLOW IVP 10 mg Q4H PRN Administration Systolic BP > 140 Multivitamins 1 tab 10/06/20 09:00 10/17/20 08:45 Multivit, Therapeutic 1 Tab PER TUBE 1 tab DAILY BRII Administration Pantoprazole Sodium 40 mg 10/14/20 09:00 10/17/20 08:45 Pantoprazole 40 Mg Granules Packet PER TUBE 40 mg DAILY BRII Administration Sodium Chloride 10 ml 10/01/20 13:59 10/17/20 08:46 Flush - Normal Saline 10 Ml Syringe IVF 10 ml PRN PRN Administration Saline Flush Thiamine HCl 100 mg 10/02/20 15:00 10/16/20 15:52 Thiamine Hcl 200 Mg/2 Ml Vial SLOW IVP 100 mg Q24HR BRII Administration Hospitalist Exam Vitals: Vital Signs (12 hours) Temp Pulse Resp BP BP Pulse Ox 10/17/20 08:48 74 114/71 10/17/20 07:25 98.2 F 74 18 108/68 95 10/17/20 05:16 66 126/73 10/17/20 02:52 73 103/66 10/16/20 23:53 97.8 F 73 16 103/66 96 Weight Admit Weight 151 lb 0.266 oz Weight 155 lb 7 oz Most Recent Monitor Data Heart Rate from ECG 78 NIBP 124/71 NIBP BP-Mean 88 Respiration from ECG 20 SpO2 100 General Appearance: NAD, awake alert Eye: PERRL, anicteric sclera ENT: normocephalic atraumatic, no oropharyngeal lesions Neck: no JVD Heart: RRR, no murmur, no gallops, no rubs Respiratory: CTAB, no wheezes, no rales, no ronchi Gastrointestinal: soft, non-tender, non-distended, normal bowel sounds Extremities: no cyanosis, no clubbing, no edema Skin: normal turgor, no lesions, no rashes Neurological: cranial nerve grossly intact, normal sensation to touch, no weak ness Neurological - other findings: right sided hemiplegia. Moves left arm and wiggles left foot Psychiatric: normal affect, normal behavior, A&O x 3 Psychiatric - other findings: nonverbal Hosp A/P (1) Acute encephalopathy Code(s): G93.40 - ENCEPHALOPATHY, UNSPECIFIED Status: Acute (2) Anemia Code(s): D64.9 - ANEMIA, UNSPECIFIED Status: Acute (3) Hyponatremia Code(s): E87.1 - HYPO-OSMOLALITY AND HYPONATREMIA Status: Acute (4) ICH (intracerebral hemorrhage) Code(s): I61.9 - NONTRAUMATIC INTRACEREBRAL HEMORRHAGE, UNSPECIFIED Status: Acute Qualifiers: Cerebral hemorrhage location: unspecified cerebral location (5) Leukocytosis Code(s): D72.829 - ELEVATED WHITE BLOOD CELL COUNT, UNSPECIFIED Status: Acute - Plan CT scan 10/06: large left intra-axila hematoma unchanged. Minimal right sided subarachonid hemorrhage. No new hemorrhage. Intraventricular hematoma slightly decreased This is a 50 year old male who presented unresponsive. He was found to have a large parenchymal bleed with intraventricular hemorrhage. He was found to be hypertensive. Neurosurgery was consulted and recommended conservative management. The patient had PEG tube placed 10/13. Currently awaiting on arranging transportation to [place] Acute encephalopathy secondary to large left intra-axial hematoma and intr aventricular hemorrhage - CT scan 10/06 showed unchanged intra-axial hemtoma. Neurosurgery recommended 3 week follow up with repeat CT scan of head. Awaiting response from neurosurgery about safety of traveling to [place], currently not safe to go on airplane - he spontaneously moves right side some , but not left Left lower lobe pneumonia - WBC is down to 12.2. Chest X ray 10/06 showed left lower lobe infiltrate. The patient has received 10 days of zosyn. Will discontinue Hypertensive emergency - presented with BP of 188/122. BP now controlled, continue hydralazine and amlodipine Dysphagia - s/p PEG placemenet Disposition: will need to arrange transportation to [place] possibly this week
[2020-10-17] MEDS: Thiamine HCl 200 MG/2 ML VIAL SLOW IVP SCH (14:18)
[2020-10-17] MEDS ORDERED: Carvedilol 6.25 MG TAB PO SCH (19:45)
[2020-10-17] MEDS ORDERED: Ondansetron ODT 4 MG TAB PO PRN (20:58)
[2020-10-17] MEDS ORDERED: Ondansetron PF 4 MG/2 ML Vial IVP PRN (20:58)
[2020-10-18] MEDS: hydrALAZINE 20 MG/ML VIAL SLOW IVP PRN ×2 (00:43→04:30)
[2020-10-18] MEDS: Piperacillin/Tazobactam 3.375 GM in Sodium Chloride 0.9% 100 ML IVPB SCH ×3 (02:31→15:22)
[2020-10-18] MEDS: Insulin Regular 300 UNITS/3 ML VIAL SC PRN ×4 (05:49→22:03)
[2020-10-18] MEDS: Carvedilol 6.25 MG TAB PO SCH ×2 (07:50→17:26)
[2020-10-18] MEDS: Folic Acid 1 MG TAB PER TUBE SCH (07:51)
[2020-10-18] MEDS: Multivit, Therapeutic 1 TAB PER TUBE SCH (07:51)
[2020-10-18] MEDS: Amlodipine 5 MG TAB PER TUBE SCH ×2 (07:51→21:29)
[2020-10-18] MEDS: Pantoprazole 40 MG GRANULES PACKET PER TUBE SCH (07:51)
[2020-10-18 09:13] LABS: Sodium 133 mmol/L (136-145)
[2020-10-18] MEDS: Thiamine HCl 200 MG/2 ML VIAL SLOW IVP SCH (15:22)
--- NOTE | 2020-10-18 15:27 | PDOC.HOSPP ---
- Subjective Encounter Date: 10/18/20 Encounter Time: 13:00 Subjective: F/u: hemorrhagic stroke The patient is non-verbal and has no complaints. Spoke in [place] and when asked to move his right arm/leg, he moved his left side. He does not answer any other questions - Objective Vital Signs & Weight: Vital Signs (12 hours) Temp Pulse Resp BP BP Pulse Ox 10/18/20 11:43 98.3 F 76 18 119/75 95 10/18/20 07:37 97.9 F 83 18 130/76 96 10/18/20 06:48 122/71 10/18/20 04:30 88 152/81 H 10/18/20 04:26 85 18 156/81 H 98 Weight Admit Weight 151 lb 0.266 oz Weight 151 lb 6.4 oz Most Recent Monitor Data Heart Rate from ECG 78 NIBP 124/71 NIBP BP-Mean 88 Respiration from ECG 20 SpO2 100 I&O: 10/17/20 10/18/20 10/19/20 06:59 06:59 06:59 Intake Total 2300 4060 714 Balance 2300 4060 714 Result Diagrams: 10/16/20 05:12 10/18/20 08:50 Additional Labs: Accuchecks 10/18/20 10/18/20 10/18/20 11:42 05:40 00:26 POC Glucose 284 H 256 H 212 H Hospitalist ROS - Review of Systems Constitutional: denies: fever, chills - Medication Medications: Active Medications Generic Name Dose Route Start Last Admin Trade Name Freq PRN Reason Stop Dose Admin Acetaminophen 650 mg 10/04/20 15:04 10/13/20 22:35 Acetaminophen 650 Mg/20.3 Ml Udcup PO 650 mg Q4H PRN Administration pain/fever Amlodipine Besylate 5 mg 10/04/20 21:00 10/18/20 07:51 Amlodipine 5 Mg Tab PER TUBE 5 mg BID BRII Administration Carvedilol 6.25 mg 10/18/20 08:00 10/18/20 07:50 Carvedilol 6.25 Mg Tab PO 6.25 mg BID-WM BRII Administration Folic Acid 1 mg 10/06/20 09:00 10/18/20 07:51 Folic Acid 1 Mg Tab PER TUBE 1 mg DAILY BRII Administration Hydralazine HCl 5 mg 10/05/20 13:01 10/18/20 04:30 Hydralazine 20 Mg/Ml Vial SLOW IVP 5 mg Q4H PRN Administration Sbp Greater Than 140 Piperacillin Sod/Tazobactam 100 mls @ 200 mls/hr 10/17/20 20:00 10/18/20 15:22 Sod 3.375 gm/ Sodium Chloride IVPB 10/18/20 20:01 100 mls 0200,0800,1400,2000 BRII Administration Insulin Human Regular 0 units 10/07/20 17:12 10/18/20 11:44 Insulin Regular 300 Units/3 Ml Vial SC 4 unit .MILD SLIDING SCALE PRN Administration Mild Correctional Scale Labetalol HCl 10 mg 10/05/20 13:08 10/09/20 00:10 Labetalol Hcl 100 Mg/20 Ml Vial SLOW IVP 10 mg Q4H PRN Administration Systolic BP > 140 Multivitamins 1 tab 10/06/20 09:00 10/18/20 07:51 Multivit, Therapeutic 1 Tab PER TUBE 1 tab DAILY BRII Administration Ondansetron HCl 4 mg 10/17/20 20:58 10/17/20 21:29 Ondansetron Pf 4 Mg/2 Ml Vial IVP 4 mg Q6H PRN Administration Nausea/Vomiting Pantoprazole Sodium 40 mg 10/14/20 09:00 10/18/20 07:51 Pantoprazole 40 Mg Granules Packet PER TUBE 40 mg DAILY BRII Administration Sodium Chloride 10 ml 10/01/20 13:59 10/18/20 07:51 Flush - Normal Saline 10 Ml Syringe IVF 10 ml PRN PRN Administration Saline Flush Thiamine HCl 100 mg 10/02/20 15:00 10/18/20 15:22 Thiamine Hcl 200 Mg/2 Ml Vial SLOW IVP 100 mg Q24HR BRII Administration Hospitalist Exam Vitals: Vital Signs (12 hours) Temp Pulse Resp BP BP Pulse Ox 10/18/20 11:43 98.3 F 76 18 119/75 95 10/18/20 07:37 97.9 F 83 18 130/76 96 10/18/20 06:48 122/71 10/18/20 04:30 88 152/81 H 10/18/20 04:26 85 18 156/81 H 98 Weight Admit Weight 151 lb 0.266 oz Weight 151 lb 6.4 oz Most Recent Monitor Data Heart Rate from ECG 78 NIBP 124/71 NIBP BP-Mean 88 Respiration from ECG 20 SpO2 100 General Appearance: NAD, awake alert General - other findings: sitting in bed with left arm raised to his head. Moves left leg spontaneous Eye: PERRL, anicteric sclera ENT: normocephalic atraumatic, no oropharyngeal lesions Neck: no JVD Heart: RRR, no murmur, no gallops, no rubs Respiratory: CTAB, no wheezes, no rales, no ronchi Gastrointestinal: non-distended Extremities: no cyanosis, no edema Neurological - other findings: right arm and leg hemiplegia Musculoskeletal: normal strength Hosp A/P (1) Acute encephalopathy Code(s): G93.40 - ENCEPHALOPATHY, UNSPECIFIED Status: Acute (2) Anemia Code(s): D64.9 - ANEMIA, UNSPECIFIED Status: Acute (3) Hyponatremia Code(s): E87.1 - HYPO-OSMOLALITY AND HYPONATREMIA Status: Acute (4) ICH (intracerebral hemorrhage) Code(s): I61.9 - NONTRAUMATIC INTRACEREBRAL HEMORRHAGE, UNSPECIFIED Status: Acute Qualifiers: Cerebral hemorrhage location: unspecified cerebral location (5) Leukocytosis Code(s): D72.829 - ELEVATED WHITE BLOOD CELL COUNT, UNSPECIFIED Status: Acute - Plan CT scan 10/06: large left intra-axila hematoma unchanged. Minimal right sided subarachonid hemorrhage. No new hemorrhage. Intraventricular hematoma slightly decreased This is a 50 year old male who presented unresponsive. He was found to have a large parenchymal bleed with intraventricular hemorrhage. He was found to be hypertensive. Neurosurgery was consulted and recommended conservative management. The patient had PEG tube placed 10/13. Currently awaiting on arranging transportation to [place] Acute encephalopathy secondary to large left intra-axial hematoma and intraventricular hemorrhage - CT scan 2/2 showed unchanged intra-axial hemtoma. Neurosurgery recommended 3 week follow up with repeat CT scan of head. Awaiting response from neurosurgery about safety of traveling to [place], currently not safe to go on airplane - he spontaneously moves right side some , but not left Left lower lobe pneumonia - WBC is down to 12.2. Chest X ray 2/2 showed left lower lobe infiltrate. The patient has received 10 days of zosyn. Will discontinue Hypertensive emergency - presented with BP of 188/122. BP now 110-145. Continue amlodipine, hydralazine and coreg bid Dysphagia - s/p PEG placement Disposition: spoke with [place], [place] in these conditions and trying to see if care director rn will even approve of this. Discuss with case management tomorrow
[2020-10-18] MEDS: Insulin Glargine 8 UNITS in Pre-Filled Syringe 1 EACH SC SCH (21:30)
[2020-10-19] MEDS: Multivit, Therapeutic 1 TAB PER TUBE SCH (09:00)
[2020-10-19] MEDS: Amlodipine 5 MG TAB PER TUBE SCH ×2 (09:00→21:32)
[2020-10-19] MEDS: Carvedilol 6.25 MG TAB PO SCH ×2 (09:00→18:51)
[2020-10-19] MEDS: Folic Acid 1 MG TAB PER TUBE SCH (09:00)
[2020-10-19] MEDS ORDERED: Carvedilol 6.25 MG TAB ONE (09:06)
[2020-10-19] MEDS ORDERED: Folic Acid 1 MG TAB ONE (09:07)
[2020-10-19] MEDS ORDERED: Amlodipine 5 MG TAB ONE (09:07)
[2020-10-19] MEDS ORDERED: Pantoprazole 40 MG GRANULES PACKET ONE (09:08)
[2020-10-19] MEDS ORDERED: Thiamine 100 MG TAB ONE (09:08)
[2020-10-19] MEDS ORDERED: Multivit, Therapeutic 1 TAB ONE (09:08)
[2020-10-19] MEDS: Thiamine HCl 200 MG/2 ML VIAL SLOW IVP SCH ×2 (10:00→16:19)
[2020-10-19] MEDS ORDERED: Dextrose 50% Abboject 50 ML SYRINGE SLOW IVP PRN (13:46)
[2020-10-19] MEDS ORDERED: Dextrose 5% in Water 1,000 ML IV PRN (13:46)
--- NOTE | 2020-10-19 14:13 | PDOC.HOSPP ---
- Subjective Encounter Date: 10/19/20 Encounter Time: 11:00 Subjective: F/u: brain bleed The patient says he is not in pain. When asked in rwandan how he feels, he stated "muy rodger." He does move right side to command - Objective Vital Signs & Weight: Vital Signs (12 hours) Temp Pulse Pulse Resp BP BP Pulse Ox 10/19/20 11:16 82 122/71 10/19/20 08:39 98.6 F 81 20 144/77 H 98 Weight Admit Weight 151 lb 0.266 oz Weight 151 lb 6.4 oz Most Recent Monitor Data Heart Rate from ECG 78 NIBP 124/71 NIBP BP-Mean 88 Respiration from ECG 20 SpO2 100 I&O: 10/18/20 10/19/20 10/20/20 06:59 06:59 06:59 Intake Total 4060 2502 Balance 4060 2502 Result Diagrams: 10/16/20 05:12 10/18/20 08:50 Additional Labs: Accuchecks 10/19/20 10/18/20 10/18/20 04:10 19:37 16:01 POC Glucose 240 H 310 H 219 H Hospitalist ROS - Medication Medications: Active Medications Generic Name Dose Route Start Last Admin Trade Name Freq PRN Reason Stop Dose Admin Acetaminophen 650 mg 10/04/20 15:04 10/13/20 22:35 Acetaminophen 650 Mg/20.3 Ml Udcup PO 650 mg Q4H PRN Administration pain/fever Amlodipine Besylate 5 mg 10/04/20 21:00 10/18/20 21:29 Amlodipine 5 Mg Tab PER TUBE 5 mg BID BRII Administration Carvedilol 6.25 mg 10/18/20 08:00 10/18/20 17:26 Carvedilol 6.25 Mg Tab PO 6.25 mg BID-WM BRII Administration Folic Acid 1 mg 10/06/20 09:00 10/18/20 07:51 Folic Acid 1 Mg Tab PER TUBE 1 mg DAILY BRII Administration Hydralazine HCl 5 mg 10/05/20 13:01 10/18/20 04:30 Hydralazine 20 Mg/Ml Vial SLOW IVP 5 mg Q4H PRN Administration Sbp Greater Than 140 Insulin Glargine 8 units/ 0.08 mls @ 0 mls/hr 10/18/20 21:00 10/18/20 21:30 Miscellaneous Medication SC 0.08 mls HS BRII Administration Insulin Human Regular 0 units 10/18/20 21:36 10/18/20 22:03 Insulin Regular 300 Units/3 Ml Vial SC 4 unit .BEDTIME SLIDING SC PRN Administration Bedtime Correctional Scale Labetalol HCl 10 mg 10/05/20 13:08 10/09/20 00:10 Labetalol Hcl 100 Mg/20 Ml Vial SLOW IVP 10 mg Q4H PRN Administration Systolic BP > 140 Multivitamins 1 tab 10/06/20 09:00 10/18/20 07:51 Multivit, Therapeutic 1 Tab PER TUBE 1 tab DAILY BRII Administration Ondansetron HCl 4 mg 10/17/20 20:58 10/17/20 21:29 Ondansetron Pf 4 Mg/2 Ml Vial IVP 4 mg Q6H PRN Administration Nausea/Vomiting Pantoprazole Sodium 40 mg 10/14/20 09:00 10/18/20 07:51 Pantoprazole 40 Mg Granules Packet PER TUBE 40 mg DAILY BRII Administration Sodium Chloride 10 ml 10/01/20 13:59 10/18/20 07:51 Flush - Normal Saline 10 Ml Syringe IVF 10 ml PRN PRN Administration Saline Flush Thiamine HCl 100 mg 10/02/20 15:00 10/18/20 15:22 Thiamine Hcl 200 Mg/2 Ml Vial SLOW IVP 100 mg Q24HR BRII Administration Hospitalist Exam Vitals: Vital Signs (12 hours) Temp Pulse Pulse Resp BP BP Pulse Ox 10/19/20 11:16 82 122/71 10/19/20 08:39 98.6 F 81 20 144/77 H 98 Weight Admit Weight 151 lb 0.266 oz Weight 151 lb 6.4 oz Most Recent Monitor Data Heart Rate from ECG 78 NIBP 124/71 NIBP BP-Mean 88 Respiration from ECG 20 SpO2 100 General Appearance: NAD, awake alert Eye: PERRL, anicteric sclera ENT: normocephalic atraumatic, no oropharyngeal lesions Neck: no JVD Heart: RRR, no murmur, no gallops, no rubs Respiratory: CTAB, no wheezes, no rales, no ronchi Gastrointestinal: soft, non-tender, non-distended, normal bowel sounds Extremities: no cyanosis, no clubbing, no edema Skin: normal turgor, no lesions, no rashes Neurological - other findings: moves right arm and right leg to command, left hemiplegia Musculoskeletal: normal tone, normal strength Hosp A/P (1) Acute encephalopathy Code(s): G93.40 - ENCEPHALOPATHY, UNSPECIFIED Status: Acute (2) Anemia Code(s): D64.9 - ANEMIA, UNSPECIFIED Status: Acute (3) Hyponatremia Code(s): E87.1 - HYPO-OSMOLALITY AND HYPONATREMIA Status: Acute (4) ICH (intracerebral hemorrhage) Code(s): I61.9 - NONTRAUMATIC INTRACEREBRAL HEMORRHAGE, UNSPECIFIED Status: Acute Qualifiers: Cerebral hemorrhage location: unspecified cerebral location (5) Leukocytosis Code(s): D72.829 - ELEVATED WHITE BLOOD CELL COUNT, UNSPECIFIED Status: Acute - Plan CT scan 10/06: large left intra-axila hematoma unchanged. Minimal right sided subarachonid hemorrhage. No new hemorrhage. Intraventricular hematoma slightly decreased This is a 50 year old male who presented unresponsive. He was found to have a large parenchymal bleed with intraventricular hemorrhage. He was found to be hypertensive. Neurosurgery was consulted and recommended conservative management. The patient had PEG tube placed 10/13. Currently awaiting on arranging transportation to [place] Acute encephalopathy secondary to large left intra-axial hematoma and intraventricular hemorrhage - CT scan 10/06 showed unchanged intra-axial hemtoma. Neurosurgery recommended 3 week follow up with repeat CT scan of head. Awaiting response from neurosurgery about safety of traveling to [place], currently not safe to go on airplane - he moves right leg to command Left lower lobe pneumonia - WBC is down to 12.2. Chest X ray 2 showed left lower lobe infiltrate. He is s/p 10 days of zosyn. Repeat CBC pending today Hypertensive emergency - presented with BP of 188/122. BP now 110-145. Continue amlodipine, hydralazine and coreg bid Dysphagia - s/p PEG placement Disposition: spoke with daughter, [place], [place] in the current weather
[2020-10-19] MEDS ORDERED: HumaLOG 300 UNITS/3 ML VIAL ONE (14:36)
[2020-10-19] MEDS: HumaLOG 300 UNITS/3 ML VIAL SC PRN ×2 (14:37→18:50)
[2020-10-19] MEDS: Pantoprazole 40 MG GRANULES PACKET PER TUBE SCH (14:40)
[2020-10-19 15:07] LABS: Hemoglobin 12.9 g/dL (14.0-18.0); Mean Corpuscular HGB CONC 33.4 g/dL (32.0-36.0); Mean Corpuscular Volume 95.8 fL (78.0-98.0); Mean Platelet Volume 7.9 fL (7.4-10.4); Platelet Count 370 thou/uL (130-400); RBC Distribution Width 11.8 % (11.5-14.5); Red Blood Cell (RBC) Count 4.03 mill/uL (4.70-6.10); White Blood Cell (WBC) Count 14.1 thou/uL (4.8-10.8)
[2020-10-19 15:30] LABS: Anion Gap 14 mmol/L (10-20); BUN (Urea Nitrogen) 10 mg/dL (8.4-25.7); Calc. Creatinine Clearance 179 mL/min (70-130); Carbon Dioxide 28 mmol/L (22-29); Chloride 97 mmol/L (98-107); Glucose 211 mg/dL (70-105); Potassium 3.6 mmol/L (3.5-5.1); Sodium 135 mmol/L (136-145)
[2020-10-19] MEDS: Insulin Glargine 8 UNITS in Pre-Filled Syringe 1 EACH SC SCH (21:13)
[2020-10-19] MEDS: Insulin Regular 300 UNITS/3 ML VIAL SC PRN (21:14)
[2020-10-20] MEDS: Folic Acid 1 MG TAB PER TUBE SCH (09:21)
[2020-10-20] MEDS: Amlodipine 5 MG TAB PER TUBE SCH ×2 (09:21→21:44)
[2020-10-20] MEDS: Multivit, Therapeutic 1 TAB PER TUBE SCH (09:22)
[2020-10-20] MEDS: Pantoprazole 40 MG GRANULES PACKET PER TUBE SCH (09:22)
[2020-10-20] MEDS: Carvedilol 6.25 MG TAB PO SCH ×2 (09:22→16:56)
[2020-10-20 10:27] LABS: Hemoglobin 13.9 g/dL (14.0-18.0); Mean Corpuscular HGB CONC 34.9 g/dL (32.0-36.0); Mean Corpuscular Hemoglobin 33.2 pg (27.0-31.0); Mean Corpuscular Volume 94.9 fL (78.0-98.0); Mean Platelet Volume 7.5 fL (7.4-10.4); Platelet Count 387 thou/uL (130-400); RBC Distribution Width 11.4 % (11.5-14.5); Red Blood Cell (RBC) Count 4.19 mill/uL (4.70-6.10); White Blood Cell (WBC) Count 13.1 thou/uL (4.8-10.8)
[2020-10-20] MEDS: HumaLOG 300 UNITS/3 ML VIAL SC PRN ×2 (14:07→16:58)
--- NOTE | 2020-10-20 15:43 | PDOC.EEG ---
Neurology EEG Report - Report Report: This EEG was performed using 24 channel [employer] video digital EEG machine with 24 disc electrodes. This was an extended 2 hours 9 minutes of inpatient video EEG recording. Digital analysis of the EEG was done for Jai and seizure detection which revealed no abnormalities. Background: There is a nonsustained posterior background rhythm is 7-8 Hz. Minimal reactivity seen with eye opening and closure. Hyperventilation: Not performed Photic stimulation: No significant response Sleep: Drowsiness and sleep are observed EEG diagnosis: Intermittent irregular theta activity seen during the recording Nonsustained posterior background rhythm Clinical interpretation: This EEG is consistent with mild generalized nonspecific cerebral dysfunction.
--- NOTE | 2020-10-20 16:32 | PDOC.HOSPP ---
- Subjective Encounter Date: 10/20/20 Encounter Time: 09:00 Subjective: F/u: brain bleed The patient is non-verbal. He denies pain, nausea He moves left side to command, but not the right - Objective Vital Signs & Weight: Vital Signs (12 hours) Temp Pulse Resp BP BP Pulse Ox 10/20/20 14:22 97.9 F 80 18 132/81 94 L 10/20/20 09:22 139/53 L 10/20/20 09:21 84 139/53 L 10/20/20 09:15 97 10/20/20 07:56 97.6 F 84 20 139/53 L 97 10/20/20 05:00 138/86 Weight Admit Weight 151 lb 0.266 oz Weight 151 lb 6.4 oz Most Recent Monitor Data Heart Rate from ECG 78 NIBP 124/71 NIBP BP-Mean 88 Respiration from ECG 20 SpO2 100 I&O: 10/19/20 10/20/20 10/21/20 06:59 06:59 06:59 Intake Total 2502 2340 720 Balance 2502 2340 720 Result Diagrams: 10/20/20 10:11 10/19/20 05:49 Additional Labs: Accuchecks 10/20/20 10/19/20 10/19/20 04:12 19:45 16:52 POC Glucose 194 H 239 H 273 H 10/17/20 16:09 POC Glucose 219 H Hospitalist ROS - Review of Systems Constitutional: denies: fever, chills - Medication Medications: Active Medications Generic Name Dose Route Start Last Admin Trade Name Freq PRN Reason Stop Dose Admin Acetaminophen 650 mg 10/04/20 15:04 10/13/20 22:35 Acetaminophen 650 Mg/20.3 Ml Udcup PO 650 mg Q4H PRN Administration pain/fever Amlodipine Besylate 5 mg 10/04/20 21:00 10/20/20 09:21 Amlodipine 5 Mg Tab PER TUBE 5 mg BID BRII Administration Carvedilol 6.25 mg 10/18/20 08:00 10/20/20 09:22 Carvedilol 6.25 Mg Tab PO 6.25 mg BID-WM BRII Administration Folic Acid 1 mg 10/06/20 09:00 10/20/20 09:21 Folic Acid 1 Mg Tab PER TUBE 1 mg DAILY BRII Administration Hydralazine HCl 5 mg 10/05/20 13:01 10/18/20 04:30 Hydralazine 20 Mg/Ml Vial SLOW IVP 5 mg Q4H PRN Administration Sbp Greater Than 140 Insulin Glargine 8 units/ 0.08 mls @ 0 mls/hr 10/18/20 21:00 10/19/20 21:13 Miscellaneous Medication SC 0.08 mls HS BRII Administration Insulin Human Lispro 0 units 10/19/20 13:46 10/20/20 14:07 Humalog 300 Units/3 Ml Vial SC 8 unit .MODERATE SLIDING SC PRN Administration Moderate Correctional Scale Insulin Human Regular 0 units 10/18/20 21:36 10/19/20 21:14 Insulin Regular 300 Units/3 Ml Vial SC 2 unit .BEDTIME SLIDING SC PRN Administration Bedtime Correctional Scale Labetalol HCl 10 mg 10/05/20 13:08 10/09/20 00:10 Labetalol Hcl 100 Mg/20 Ml Vial SLOW IVP 10 mg Q4H PRN Administration Systolic BP > 140 Multivitamins 1 tab 10/06/20 09:00 10/20/20 09:22 Multivit, Therapeutic 1 Tab PER TUBE 1 tab DAILY BRII Administration Ondansetron HCl 4 mg 10/17/20 20:58 10/17/20 21:29 Ondansetron Pf 4 Mg/2 Ml Vial IVP 4 mg Q6H PRN Administration Nausea/Vomiting Pantoprazole Sodium 40 mg 10/14/20 09:00 10/20/20 09:22 Pantoprazole 40 Mg Granules Packet PER TUBE 40 mg DAILY BRII Administration Sodium Chloride 10 ml 10/01/20 13:59 10/18/20 07:51 Flush - Normal Saline 10 Ml Syringe IVF 10 ml PRN PRN Administration Saline Flush Thiamine HCl 100 mg 10/02/20 15:00 10/19/20 10:00 Thiamine Hcl 200 Mg/2 Ml Vial SLOW IVP 100 mg Q24HR BRII Administration Hospitalist Exam Vitals: Vital Signs (12 hours) Temp Pulse Resp BP BP Pulse Ox 10/20/20 14:22 97.9 F 80 18 132/81 94 L 10/20/20 09:22 139/53 L 10/20/20 09:21 84 139/53 L 10/20/20 09:15 97 10/20/20 07:56 97.6 F 84 20 139/53 L 97 10/20/20 05:00 138/86 Weight Admit Weight 151 lb 0.266 oz Weight 151 lb 6.4 oz Most Recent Monitor Data Heart Rate from ECG 78 NIBP 124/71 NIBP BP-Mean 88 Respiration from ECG 20 SpO2 100 General Appearance: NAD, awake alert Eye: PERRL ENT: normocephalic atraumatic, no oropharyngeal lesions Neck: no JVD Heart: RRR, no murmur, no gallops, no rubs Respiratory: CTAB, no wheezes, no rales, no ronchi Gastrointestinal: soft, non-tender, non-distended, normal bowel sounds Extremities: no cyanosis, no clubbing, no edema Skin: normal turgor, no lesions, no rashes Neurological - other findings: moves left arm and leg to command. Right hemiplegia Musculoskeletal: normal tone, normal strength, no muscle wasting Psychiatric: normal affect, normal behavior, A&O x 3 Hosp A/P (1) Acute encephalopathy Code(s): G93.40 - ENCEPHALOPATHY, UNSPECIFIED Status: Acute (2) Anemia Code(s): D64.9 - ANEMIA, UNSPECIFIED Status: Acute (3) Hyponatremia Code(s): E87.1 - HYPO-OSMOLALITY AND HYPONATREMIA Status: Acute (4) ICH (intracerebral hemorrhage) Code(s): I61.9 - NONTRAUMATIC INTRACEREBRAL HEMORRHAGE, UNSPECIFIED Status: Acute Qualifiers: Cerebral hemorrhage location: unspecified cerebral location (5) Leukocytosis Code(s): D72.829 - ELEVATED WHITE BLOOD CELL COUNT, UNSPECIFIED Status: Acute - Plan CT scan 10/06: large left intra-axila hematoma unchanged. Minimal right sided subarachonid hemorrhage. No new hemorrhage. Intraventricular hematoma slightly decreased This is a 50 year old male who presented unresponsive. He was found to have a large parenchymal bleed with intraventricular hemorrhage. He was found to be hypertensive. Neurosurgery was consulted and recommended conservative man agement. The patient had PEG tube placed 10/13. Currently awaiting on arranging transportation to [place] Acute encephalopathy secondary to large left intra-axial hematoma and intravent ricular hemorrhage - CT scan 2 showed unchanged intra-axial hemtoma. Neurosurgery recommended 3 week follow up with repeat CT scan of head. Awaiting response from neurosurgery about safety of traveling to [place], currently not safe to go on airplane - he moves left side to command, but not the right Left lower lobe pneumonia - WBC is down to 12.2. Chest X ray 10/06 showed left lower lobe infiltrate. He is s/p 10 days of zosyn. WBC improved to 13 Hypertensive emergency - presented with BP of 188/122. BP now 110-145. Continue amlodipine, hydralazine and coreg bid Dysphagia - s/p PEG placement Disposition: spoke with daughter, [place], but unable to transport in the current weather , so will try to initiate transportation when this is better
[2020-10-20] MEDS: Thiamine HCl 200 MG/2 ML VIAL SLOW IVP SCH (17:02)
[2020-10-20] MEDS: Insulin Glargine 15 UNITS in Pre-Filled Syringe 1 EACH SC SCH (21:45)
[2020-10-21] MEDS: HumaLOG 300 UNITS/3 ML VIAL SC PRN ×3 (05:53→17:12)
[2020-10-21 07:13] LABS: Hemoglobin 13.7 g/dL (14.0-18.0); Mean Corpuscular HGB CONC 34.9 g/dL (32.0-36.0); Mean Corpuscular Volume 94.7 fL (78.0-98.0); Mean Platelet Volume 7.9 fL (7.4-10.4); Platelet Count 357 thou/uL (130-400); RBC Distribution Width 11.5 % (11.5-14.5); Red Blood Cell (RBC) Count 4.15 mill/uL (4.70-6.10); White Blood Cell (WBC) Count 12.2 thou/uL (4.8-10.8)
[2020-10-21] MEDS: Amlodipine 5 MG TAB PER TUBE SCH ×2 (08:49→22:08)
[2020-10-21] MEDS: Carvedilol 6.25 MG TAB PO SCH ×2 (08:49→16:33)
[2020-10-21] MEDS: Folic Acid 1 MG TAB PER TUBE SCH (08:49)
[2020-10-21] MEDS: Multivit, Therapeutic 1 TAB PER TUBE SCH (08:49)
[2020-10-21] MEDS: Pantoprazole 40 MG GRANULES PACKET PER TUBE SCH (08:49)
[2020-10-21] MEDS: Thiamine HCl 200 MG/2 ML VIAL SLOW IVP SCH (16:35)
--- NOTE | 2020-10-21 17:13 | PDOC.HOSPP ---
- Subjective Encounter Date: 10/21/20 Encounter Time: 12:00 Subjective: F/u: brain bleed The patient denies complaints, nausea, headache or vomiting. Still weak on right side - Objective Vital Signs & Weight: Vital Signs (12 hours) Temp Pulse Resp BP BP BP Pulse Ox 10/21/20 16:33 131/80 10/21/20 16:31 97.4 F L 83 16 131/80 97 10/21/20 12:03 97.4 F L 83 16 130/80 97 10/21/20 08:49 89 136/83 10/21/20 08:00 98.5 F 89 18 136/83 98 Weight Admit Weight 151 lb 0.266 oz Weight 152 lb 1.903 oz Most Recent Monitor Data Heart Rate from ECG 78 NIBP 124/71 NIBP BP-Mean 88 Respiration from ECG 20 SpO2 100 I&O: 10/20/20 10/21/20 10/22/20 06:59 06:59 06:59 Intake Total 2340 3600 1080 Balance 2340 3600 1080 Result Diagrams: 10/21/20 06:29 10/19/20 05:49 Additional Labs: Accuchecks 10/21/20 10/21/20 10/21/20 15:57 10:41 04:31 POC Glucose 227 H 314 H 252 H 10/20/20 10/20/20 21:13 12:08 POC Glucose 217 H 323 H Hospitalist ROS - Review of Systems Constitutional: denies: fever, chills - Medication Medications: Active Medications Generic Name Dose Route Start Last Admin Trade Name Freq PRN Reason Stop Dose Admin Acetaminophen 650 mg 10/04/20 15:04 10/13/20 22:35 Acetaminophen 650 Mg/20.3 Ml Udcup PO 650 mg Q4H PRN Administration pain/fever Amlodipine Besylate 5 mg 10/04/20 21:00 10/21/20 08:49 Amlodipine 5 Mg Tab PER TUBE 5 mg BID BRII Administration Carvedilol 6.25 mg 10/18/20 08:00 10/21/20 16:33 Carvedilol 6.25 Mg Tab PO 6.25 mg BID-WM BRII Administration Folic Acid 1 mg 10/06/20 09:00 10/21/20 08:49 Folic Acid 1 Mg Tab PER TUBE 1 mg DAILY BRII Administration Hydralazine HCl 5 mg 10/05/20 13:01 10/18/20 04:30 Hydralazine 20 Mg/Ml Vial SLOW IVP 5 mg Q4H PRN Administration Sbp Greater Than 140 Insulin Glargine 15 units/ 0.15 mls @ 0 mls/hr 10/20/20 21:00 10/20/20 21:45 Miscellaneous Medication SC 0.15 mls HS BRII Administration Insulin Human Lispro 0 units 10/19/20 13:46 10/21/20 12:21 Humalog 300 Units/3 Ml Vial SC 8 unit .MODERATE SLIDING SC PRN Administration Moderate Correctional Scale Insulin Human Regular 0 units 10/18/20 21:36 10/19/20 21:14 Insulin Regular 300 Units/3 Ml Vial SC 2 unit .BEDTIME SLIDING SC PRN Administration Bedtime Correctional Scale Labetalol HCl 10 mg 10/05/20 13:08 10/09/20 00:10 Labetalol Hcl 100 Mg/20 Ml Vial SLOW IVP 10 mg Q4H PRN Administration Systolic BP > 140 Multivitamins 1 tab 10/06/20 09:00 10/21/20 08:49 Multivit, Therapeutic 1 Tab PER TUBE 1 tab DAILY BRII Administration Ondansetron HCl 4 mg 10/17/20 20:58 10/17/20 21:29 Ondansetron Pf 4 Mg/2 Ml Vial IVP 4 mg Q6H PRN Administration Nausea/Vomiting Pantoprazole Sodium 40 mg 10/14/20 09:00 10/21/20 08:49 Pantoprazole 40 Mg Granules Packet PER TUBE 40 mg DAILY BRII Administration Sodium Chloride 10 ml 10/01/20 13:59 10/18/20 07:51 Flush - Normal Saline 10 Ml Syringe IVF 10 ml PRN PRN Administration Saline Flush Thiamine HCl 100 mg 10/02/20 15:00 10/21/20 16:35 Thiamine Hcl 200 Mg/2 Ml Vial SLOW IVP 100 mg Q24HR BRII Administration Hospitalist Exam Vitals: Vital Signs (12 hours) Temp Pulse Resp BP BP BP Pulse Ox 10/21/20 16:33 131/80 10/21/20 16:31 97.4 F L 83 16 131/80 97 10/21/20 12:03 97.4 F L 83 16 130/80 97 10/21/20 08:49 89 136/83 10/21/20 08:00 98.5 F 89 18 136/83 98 Weight Admit Weight 151 lb 0.266 oz Weight 152 lb 1.903 oz Most Recent Monitor Data Heart Rate from ECG 78 NIBP 124/71 NIBP BP-Mean 88 Respiration from ECG 20 SpO2 100 General Appearance: NAD, awake alert Eye: anicteric sclera Neck: no JVD Heart: RRR Respiratory: CTAB, no wheezes, normal chest expansion Gastrointestinal: soft, non-tender, non-distended, normal bowel sounds Extremities: no cyanosis, no clubbing, no edema Musculoskeletal: normal tone, normal strength, no muscle wasting Psychiatric: normal affect, normal behavior, A&O x 3 Hosp A/P (1) Acute encephalopathy Code(s): G93.40 - ENCEPHALOPATHY, UNSPECIFIED Status: Acute (2) Anemia Code(s): D64.9 - ANEMIA, UNSPECIFIED Status: Acute (3) Hyponatremia Code(s): E87.1 - HYPO-OSMOLALITY AND HYPONATREMIA Status: Acute (4) ICH (intracerebral hemorrhage) Code(s): I61.9 - NONTRAUMATIC INTRACEREBRAL HEMORRHAGE, UNSPECIFIED Status: Acute Qualifiers: Cerebral hemorrhage location: unspecified cerebral location (5) Leukocytosis Code(s): D72.829 - ELEVATED WHITE BLOOD CELL COUNT, UNSPECIFIED Status: Acute - Plan CT scan 2: large left intra-axila hematoma unchanged. Minimal right sided subarachonid hemorrhage. No new hemorrhage. Intraventricular hematoma slightly decreased This is a 50 year old male who presented unresponsive. He was found to have a large parenchymal bleed with intraventricular hemorrhage. He was found to be hypertensive. Neurosurgery was consulted and recommended conservative management. The patient had PEG tube placed 10/13. Currently awaiting on arranging transportation to [place] Acute encephalopathy secondary to large left intra-axial hematoma and intraventricular hemorrhage - CT scan 2/2 showed unchanged intra-axial hemtoma. Neurosurgery recommended 3 week follow up with repeat CT scan of head. Awaiting response from neurosurgery about safety of traveling to [place], currently not safe to go on airplane - he moves left side to command, but not the right Left lower lobe pneumonia - WBC is down to 12.2. Chest X ray 2/2 showed left lower lobe infiltrate. He is s/p 10 days of zosyn. Repeat CBC tomorrow Hypertensive emergency - presented with BP of 188/122. BP now 117-140. Continue amlodipine, hydralazine and coreg bid Dysphagia - s/p PEG placement Disposition: spoke with daughter, [place], but unable to transport in the current weather , so will try to initiate transportation when this is better
[2020-10-21] MEDS: Insulin Glargine 15 UNITS in Pre-Filled Syringe 1 EACH SC SCH (22:10)
[2020-10-22] MEDS: HumaLOG 300 UNITS/3 ML VIAL SC PRN ×3 (05:46→16:46)
[2020-10-22 06:28] LABS: Hemoglobin 13.9 g/dL (14.0-18.0); Mean Corpuscular HGB CONC 36.5 g/dL (32.0-36.0); Mean Corpuscular Hemoglobin 34.5 pg (27.0-31.0); Mean Corpuscular Volume 94.6 fL (78.0-98.0); Mean Platelet Volume 7.6 fL (7.4-10.4); Platelet Count 297 thou/uL (130-400); RBC Distribution Width 11.5 % (11.5-14.5); Red Blood Cell (RBC) Count 4.05 mill/uL (4.70-6.10); White Blood Cell (WBC) Count 10.9 thou/uL (4.8-10.8)
[2020-10-22] MEDS: Pantoprazole 40 MG GRANULES PACKET PER TUBE SCH (08:58)
[2020-10-22] MEDS: Carvedilol 6.25 MG TAB PO SCH ×2 (08:58→16:46)
[2020-10-22] MEDS: Amlodipine 5 MG TAB PER TUBE SCH ×2 (08:58→21:52)
[2020-10-22] MEDS: Multivit, Therapeutic 1 TAB PER TUBE SCH (08:58)
[2020-10-22] MEDS: Folic Acid 1 MG TAB PER TUBE SCH (08:59)
--- NOTE | 2020-10-22 15:01 | PDOC.HOSPP ---
- Subjective Encounter Date: 10/22/20 Encounter Time: 03:00 Subjective: F/u: stroke The patient has no new complaints. he states he feels fine. He moves left side to command but not right - Objective Vital Signs & Weight: Vital Signs (12 hours) Temp Pulse Resp BP BP Pulse Ox 10/22/20 12:00 98.6 F 80 17 117/72 97 10/22/20 08:58 84 136/83 10/22/20 08:00 97 10/22/20 07:19 98.1 F 84 16 136/83 97 Weight Admit Weight 151 lb 0.266 oz Weight 152 lb 1.903 oz Most Recent Monitor Data Heart Rate from ECG 78 NIBP 124/71 NIBP BP-Mean 88 Respiration from ECG 20 SpO2 100 I&O: 10/21/20 10/22/20 10/23/20 06:59 06:59 06:59 Intake Total 3600 2560 720 Balance 3600 2560 720 Result Diagrams: 10/22/20 05:54 10/19/20 05:49 Additional Labs: Accuchecks 10/22/20 10/22/20 10/21/20 11:14 05:43 22:25 POC Glucose 328 H 245 H 213 H 10/21/20 15:57 POC Glucose 227 H Hospitalist ROS - Review of Systems Constitutional: denies: fever, chills - Medication Medications: Active Medications Generic Name Dose Route Start Last Admin Trade Name Freq PRN Reason Stop Dose Admin Acetaminophen 650 mg 10/04/20 15:04 10/13/20 22:35 Acetaminophen 650 Mg/20.3 Ml Udcup PO 650 mg Q4H PRN Administration pain/fever Amlodipine Besylate 5 mg 10/04/20 21:00 10/22/20 08:58 Amlodipine 5 Mg Tab PER TUBE 5 mg BID BRII Administration Carvedilol 6.25 mg 10/18/20 08:00 10/22/20 08:58 Carvedilol 6.25 Mg Tab PO 6.25 mg BID-WM BRII Administration Folic Acid 1 mg 10/06/20 09:00 10/22/20 08:59 Folic Acid 1 Mg Tab PER TUBE 1 mg DAILY BRII Administration Hydralazine HCl 5 mg 10/05/20 13:01 10/18/20 04:30 Hydralazine 20 Mg/Ml Vial SLOW IVP 5 mg Q4H PRN Administration Sbp Greater Than 140 Insulin Glargine 15 units/ 0.15 mls @ 0 mls/hr 10/20/20 21:00 10/21/20 22:10 Miscellaneous Medication SC 0.15 mls HS BRII Administration Insulin Human Lispro 0 units 10/19/20 13:46 10/22/20 12:43 Humalog 300 Units/3 Ml Vial SC 8 unit .MODERATE SLIDING SC PRN Administration Moderate Correctional Scale Insulin Human Regular 0 units 10/18/20 21:36 10/19/20 21:14 Insulin Regular 300 Units/3 Ml Vial SC 2 unit .BEDTIME SLIDING SC PRN Administration Bedtime Correctional Scale Labetalol HCl 10 mg 10/05/20 13:08 10/09/20 00:10 Labetalol Hcl 100 Mg/20 Ml Vial SLOW IVP 10 mg Q4H PRN Administration Systolic BP > 140 Multivitamins 1 tab 10/06/20 09:00 10/22/20 08:58 Multivit, Therapeutic 1 Tab PER TUBE 1 tab DAILY BRII Administration Ondansetron HCl 4 mg 10/17/20 20:58 10/17/20 21:29 Ondansetron Pf 4 Mg/2 Ml Vial IVP 4 mg Q6H PRN Administration Nausea/Vomiting Pantoprazole Sodium 40 mg 10/14/20 09:00 10/22/20 08:58 Pantoprazole 40 Mg Granules Packet PER TUBE 40 mg DAILY BRII Administration Sodium Chloride 10 ml 10/01/20 13:59 10/18/20 07:51 Flush - Normal Saline 10 Ml Syringe IVF 10 ml PRN PRN Administration Saline Flush Thiamine HCl 100 mg 10/02/20 15:00 10/21/20 16:35 Thiamine Hcl 200 Mg/2 Ml Vial SLOW IVP 100 mg Q24HR BRII Administration Hospitalist Exam Vitals: Vital Signs (12 hours) Temp Pulse Resp BP BP Pulse Ox 10/22/20 12:00 98.6 F 80 17 117/72 97 10/22/20 08:58 84 136/83 10/22/20 08:00 97 10/22/20 07:19 98.1 F 84 16 136/83 97 Weight Admit Weight 151 lb 0.266 oz Weight 152 lb 1.903 oz Most Recent Monitor Data Heart Rate from ECG 78 NIBP 124/71 NIBP BP-Mean 88 Respiration from ECG 20 SpO2 100 General Appearance: NAD, awake alert Eye: PERRL, anicteric sclera ENT: normocephalic atraumatic, no oropharyngeal lesions Neck: no JVD Heart: RRR, no murmur, no gallops, no rubs Respiratory: CTAB, no wheezes, no rales, no ronchi Gastrointestinal: soft, non-tender, non-distended, normal bowel sounds Extremities: no cyanosis, no clubbing, no edema Skin: normal turgor, no lesions, no rashes Hosp A/P (1) Acute encephalopathy Code(s): G93.40 - ENCEPHALOPATHY, UNSPECIFIED Status: Acute (2) Anemia Code(s): D64.9 - ANEMIA, UNSPECIFIED Status: Acute (3) Hyponatremia Code(s): E87.1 - HYPO-OSMOLALITY AND HYPONATREMIA Status: Acute (4) ICH (intracerebral hemorrhage) Code(s): I61.9 - NONTRAUMATIC INTRACEREBRAL HEMORRHAGE, UNSPECIFIED Status: Acute Qualifiers: Cerebral hemorrhage location: unspecified cerebral location (5) Leukocytosis Code(s): D72.829 - ELEVATED WHITE BLOOD CELL COUNT, UNSPECIFIED Status: Acute - Plan CT scan 2: large left intra-axila hematoma unchanged. Minimal right sided subarachonid hemorrhage. No new hemorrhage. Intraventricular hematoma slightly decreased This is a 50 year old male who presented unresponsive. He was found to have a large parenchymal bleed with intraventricular hemorrhage. He was found to be hypertensive. Neurosurgery was consulted and recommended conservative management. The patient had PEG tube placed 10/13. Currently awaiting on arranging transportation to [place] Acute encephalopathy secondary to large left intra-axial hematoma and i ntraventricular hemorrhage - CT scan 2 showed unchanged intra-axial hemtoma. Neurosurgery recommended 3 week follow up with repeat CT scan of head. Awaiting response from neurosurgery about safety of traveling to [place], currently not safe to go on airplane - he still has right sided hemiplegia Left lower lobe pneumonia - WBC is down to 10.9 Chest X ray 2/2 showed left lower lobe infiltrate. He is s/p 10 days of zosyn. Repeat CBC tomorrow Hypertensive emergency - presented with BP of 188/122. BP now 117-140. Continue amlodipine, hydralazine and coreg bid Dysphagia - s/p PEG placement Disposition: needs to be dropped off at the border of [place] whenever roads are better
[2020-10-22] MEDS: Thiamine HCl 200 MG/2 ML VIAL SLOW IVP SCH (16:46)
[2020-10-22] MEDS: Insulin Glargine 15 UNITS in Pre-Filled Syringe 1 EACH SC SCH (21:52)
[2020-10-23 06:18] LABS: Hemoglobin 13.2 g/dL (14.0-18.0); Mean Corpuscular HGB CONC 34.6 g/dL (32.0-36.0); Mean Corpuscular Hemoglobin 32.3 pg (27.0-31.0); Mean Corpuscular Volume 93.4 fL (78.0-98.0); Mean Platelet Volume 7.6 fL (7.4-10.4); Platelet Count 327 thou/uL (130-400); RBC Distribution Width 11.5 % (11.5-14.5); Red Blood Cell (RBC) Count 4.08 mill/uL (4.70-6.10); White Blood Cell (WBC) Count 10.8 thou/uL (4.8-10.8)
[2020-10-23] MEDS: Multivit, Therapeutic 1 TAB PER TUBE SCH (08:43)
[2020-10-23] MEDS: Pantoprazole 40 MG GRANULES PACKET PER TUBE SCH (08:43)
[2020-10-23] MEDS: Carvedilol 6.25 MG TAB PO SCH ×2 (08:43→16:13)
[2020-10-23] MEDS: Amlodipine 5 MG TAB PER TUBE SCH ×2 (08:43→21:05)
[2020-10-23] MEDS: Folic Acid 1 MG TAB PER TUBE SCH (08:43)
[2020-10-23] MEDS: HumaLOG 300 UNITS/3 ML VIAL SC PRN (12:21)
--- NOTE | 2020-10-23 13:20 | PDOC.HOSPP ---
- Subjective Encounter Date: 10/23/20 Encounter Time: 13:18 Subjective: F/u: brain bleed The patient is alert. He is not answering questions today as much, still hemiplegic on right side. Moves left arm spontaneously, but didn't move leg for me - Objective Vital Signs & Weight: Vital Signs (12 hours) Temp Pulse Resp BP Pulse Ox 10/23/20 11:29 98.5 F 85 17 130/84 95 10/23/20 08:43 86 10/23/20 08:00 98 10/23/20 07:41 97.5 F L 86 17 136/81 98 Weight Admit Weight 151 lb 0.266 oz Weight 152 lb 5.431 oz Most Recent Monitor Data Heart Rate from ECG 78 NIBP 124/71 NIBP BP-Mean 88 Respiration from ECG 20 SpO2 100 I&O: 10/22/20 10/23/20 10/24/20 06:59 06:59 06:59 Intake Total 2560 2520 300 Balance 2560 2520 300 Result Diagrams: 10/23/20 06:01 10/19/20 05:49 Additional Labs: Accuchecks 10/23/20 10/22/20 10/22/20 06:19 19:51 15:24 POC Glucose 228 H 228 H 258 H Hospitalist ROS - Medication Medications: Active Medications Generic Name Dose Route Start Last Admin Trade Name Freq PRN Reason Stop Dose Admin Acetaminophen 650 mg 10/04/20 15:04 10/13/20 22:35 Acetaminophen 650 Mg/20.3 Ml Udcup PO 650 mg Q4H PRN Administration pain/fever Amlodipine Besylate 5 mg 10/04/20 21:00 10/23/20 08:43 Amlodipine 5 Mg Tab PER TUBE 5 mg BID BRII Administration Carvedilol 6.25 mg 10/18/20 08:00 10/23/20 08:43 Carvedilol 6.25 Mg Tab PO 6.25 mg BID-WM BRII Administration Folic Acid 1 mg 10/06/20 09:00 10/23/20 08:43 Folic Acid 1 Mg Tab PER TUBE 1 mg DAILY BRII Administration Hydralazine HCl 5 mg 10/05/20 13:01 10/18/20 04:30 Hydralazine 20 Mg/Ml Vial SLOW IVP 5 mg Q4H PRN Administration Sbp Greater Than 140 Insulin Glargine 15 units/ 0.15 mls @ 0 mls/hr 10/20/20 21:00 10/22/20 21:52 Miscellaneous Medication SC 0.15 mls HS BRII Administration Insulin Human Lispro 0 units 10/19/20 13:46 10/23/20 12:21 Humalog 300 Units/3 Ml Vial SC 6 unit .MODERATE SLIDING SC PRN Administration Moderate Correctional Scale Insulin Human Regular 0 units 10/18/20 21:36 10/19/20 21:14 Insulin Regular 300 Units/3 Ml Vial SC 2 unit .BEDTIME SLIDING SC PRN Administration Bedtime Correctional Scale Labetalol HCl 10 mg 10/05/20 13:08 10/09/20 00:10 Labetalol Hcl 100 Mg/20 Ml Vial SLOW IVP 10 mg Q4H PRN Administration Systolic BP > 140 Multivitamins 1 tab 10/06/20 09:00 10/23/20 08:43 Multivit, Therapeutic 1 Tab PER TUBE 1 tab DAILY BRII Administration Ondansetron HCl 4 mg 10/17/20 20:58 10/17/20 21:29 Ondansetron Pf 4 Mg/2 Ml Vial IVP 4 mg Q6H PRN Administration Nausea/Vomiting Pantoprazole Sodium 40 mg 10/14/20 09:00 10/23/20 08:43 Pantoprazole 40 Mg Granules Packet PER TUBE 40 mg DAILY BRII Administration Sodium Chloride 10 ml 10/01/20 13:59 10/18/20 07:51 Flush - Normal Saline 10 Ml Syringe IVF 10 ml PRN PRN Administration Saline Flush Thiamine HCl 100 mg 10/02/20 15:00 10/22/20 16:46 Thiamine Hcl 200 Mg/2 Ml Vial SLOW IVP 100 mg Q24HR BRII Administration Hospitalist Exam Vitals: Vital Signs (12 hours) Temp Pulse Resp BP Pulse Ox 10/23/20 11:29 98.5 F 85 17 130/84 95 10/23/20 08:43 86 10/23/20 08:00 98 10/23/20 07:41 97.5 F L 86 17 136/81 98 Weight Admit Weight 151 lb 0.266 oz Weight 152 lb 5.431 oz Most Recent Monitor Data Heart Rate from ECG 78 NIBP 124/71 NIBP BP-Mean 88 Respiration from ECG 20 SpO2 100 General Appearance: NAD, awake alert Neck: no JVD Heart: RRR, no murmur, no gallops, no rubs Respiratory: CTAB, no wheezes, no rales, no ronchi Gastrointestinal: soft, non-tender, non-distended, normal bowel sounds, no palpable masses Extremities: no cyanosis, no clubbing, no edema Skin: normal turgor, no lesions, no rashes Neurological - other findings: right sided hemiplegia. Moves left side arm Musculoskeletal: normal tone, normal strength, no muscle wasting Psychiatric: oriented to person Hosp A/P (1) Acute encephalopathy Code(s): G93.40 - ENCEPHALOPATHY, UNSPECIFIED Status: Acute (2) Anemia Code(s): D64.9 - ANEMIA, UNSPECIFIED Status: Acute (3) Hyponatremia Code(s): E87.1 - HYPO-OSMOLALITY AND HYPONATREMIA Status: Acute (4) ICH (intracerebral hemorrhage) Code(s): I61.9 - NONTRAUMATIC INTRACEREBRAL HEMORRHAGE, UNSPECIFIED Status: Acute Qualifiers: Cerebral hemorrhage location: unspecified cerebral location (5) Leukocytosis Code(s): D72.829 - ELEVATED WHITE BLOOD CELL COUNT, UNSPECIFIED Status: Acute - Plan CT scan 10/06: large left intra-axila hematoma unchanged. Minimal right sided subarachonid hemorrhage. No new hemorrhage. Intraventricular hematoma slightly decreased This is a 50 year old male who presented unresponsive. He was found to have a large parenchymal bleed with intraventricular hemorrhage. He was found to be hypertensive. Neurosurgery was consulted and recommended conservative management. The patient had PEG tube placed 10/13. Currently awaiting on arranging transportation to [place] Acute encephalopathy secondary to large left intra-axial hematoma and intraventricular hemorrhage - CT scan 10/06 showed unchanged intra-axial hemtoma. Neurosurgery recommended 3 week follow up with repeat CT scan of head. Awaiting response from neurosurgery about safety of traveling to [place], currently not safe to go on airplane - he still has right sided hemiplegia. Did not answer questions for me today like he normally does and did not move left leg , so will repeat CT head to evaluate for any changes -needs outpatient neurosurgery f/u on discharge, but family states they will f/u with surgeon in [place] and they [place]. Still awaiting response from EMS to see whether they would do this or not Left lower lobe pneumonia - WBC is down to 10.8. Chest X ray 10/06 showed left lower lobe infiltrate. He is s/p 10 days of zosyn. Repeat CBC tomorrow Hypertensive emergency - presented with BP of 188/122. BP now 117-140. Continue amlodipine, hydralazine and coreg bid. BP in the 130's Dysphagia - s/p PEG placement Disposition: repeat CT head. On d/c needs transportation arranged to [place]
--- NOTE | 2020-10-23 14:59 | CT ---
CT OF BRAIN PERFORMED WITHOUT CONTRAST ENHANCEMENT: 10/23/20 HISTORY: Follow-up of hemorrhage. COMPARISON: A 10/06/20 study. There is evidence of some resolution to the left sided hemorrhage which is centered more in the thala jolie region. There is still somewhat higher attenuation to some of the blood products but significant decrease in the attenuation as compared to the prior study. The edema changes are slightly improved a s compared to that prior exam. Interventricular blood has resolved. There is still mass effect on the third ventricle related to the edema change and hemorrhage. IMPRESSION: Some improvement to the edema change and improving hemorrhage related to the left thalamic bleed. The interventricular blood has resolved. POS: ROBERTO
[2020-10-23] MEDS: Thiamine HCl 200 MG/2 ML VIAL SLOW IVP SCH (16:15)
[2020-10-23] MEDS: Insulin Glargine 15 UNITS in Pre-Filled Syringe 1 EACH SC SCH (20:51)
[2020-10-23] MEDS ORDERED: Amlodipine 5 MG TAB ONE (21:04)
[2020-10-24] MEDS: HumaLOG 300 UNITS/3 ML VIAL SC PRN ×3 (05:53→18:26)
[2020-10-24 07:21] LABS: Anion Gap 12 mmol/L (10-20); BUN (Urea Nitrogen) 16 mg/dL (8.4-25.7); Calc. Creatinine Clearance 124 mL/min (70-130); Carbon Dioxide 31 mmol/L (22-29); Chloride 98 mmol/L (98-107); Glucose 278 mg/dL (70-105); Potassium 4.1 mmol/L (3.5-5.1); Sodium 137 mmol/L (136-145)
[2020-10-24] MEDS: Folic Acid 1 MG TAB PER TUBE SCH (09:07)
[2020-10-24] MEDS: Amlodipine 5 MG TAB PER TUBE SCH ×2 (09:07→21:50)
[2020-10-24] MEDS: Multivit, Therapeutic 1 TAB PER TUBE SCH (09:08)
[2020-10-24] MEDS: Carvedilol 6.25 MG TAB PO SCH ×2 (09:08→18:10)
[2020-10-24] MEDS: Pantoprazole 40 MG GRANULES PACKET PER TUBE SCH (09:09)
--- NOTE | 2020-10-24 15:21 | PDOC.HOSPP ---
- Subjective Encounter Date: 10/24/20 Encounter Time: 13:00 Subjective: Seen in follow-up for acute metabolic encephalopathy. He is not speaking today, could not complete review of systems. - Objective Vital Signs & Weight: Vital Signs (12 hours) Temp Pulse Resp BP BP BP Pulse Ox 10/24/20 11:14 98.5 F 85 16 126/83 95 10/24/20 09:08 134/73 10/24/20 09:07 83 134/73 10/24/20 08:00 97 10/24/20 07:18 98.1 F 83 15 134/73 97 10/24/20 04:00 97.7 F 81 18 136/83 96 Weight Admit Weight 151 lb 0.266 oz Weight 149 lb 11.2 oz Most Recent Monitor Data Heart Rate from ECG 78 NIBP 124/71 NIBP BP-Mean 88 Respiration from ECG 20 SpO2 100 I&O: 10/23/20 10/24/20 10/25/20 06:59 06:59 06:59 Intake Total 2520 3894 720 Balance 2520 3894 720 Result Diagrams: 10/23/20 06:01 10/24/20 06:52 Additional Labs: Accuchecks 10/24/20 10/24/20 10/24/20 11:19 05:34 00:24 POC Glucose 266 H 214 H 289 H 10/23/20 10/23/20 19:38 11:34 POC Glucose 263 H 289 H Labs and MAR reviewed by nc Hospitalist ROS - Review of Systems ROS unobtainable: due to mental status - Medication Medications: Active Medications Generic Name Dose Route Start Last Admin Trade Name Jadiel PRN Reason Stop Dose Admin Acetaminophen 650 mg 10/04/20 15:04 10/13/20 22:35 Acetaminophen 650 Mg/20.3 Ml Udcup PO 650 mg Q4H PRN Administration pain/fever Amlodipine Besylate 5 mg 10/04/20 21:00 10/24/20 09:07 Amlodipine 5 Mg Tab PER TUBE 5 mg BID BRII Administration Carvedilol 6.25 mg 10/18/20 08:00 10/24/20 09:08 Carvedilol 6.25 Mg Tab PO 6.25 mg BID- BRII Administration Folic Acid 1 mg 10/06/20 09:00 10/24/20 09:07 Folic Acid 1 Mg Tab PER TUBE 1 mg DAILY BRII Administration Hydralazine HCl 5 mg 10/05/20 13:01 10/18/20 04:30 Hydralazine 20 Mg/Ml Vial SLOW IVP 5 mg Q4H PRN Administration Sbp Greater Than 140 Insulin Glargine 15 units/ 0.15 mls @ 0 mls/hr 10/20/20 21:00 10/23/20 20:51 Miscellaneous Medication SC 0.15 mls HS BRII Administration Insulin Human Lispro 0 units 10/19/20 13:46 10/24/20 12:36 Humalog 300 Units/3 Ml Vial SC 6 unit .MODERATE SLIDING SC PRN Administration Moderate Correctional Scale Insulin Human Regular 0 units 10/18/20 21:36 10/19/20 21:14 Insulin Regular 300 Units/3 Ml Vial SC 2 unit .BEDTIME SLIDING SC PRN Administration Bedtime Correctional Scale Labetalol HCl 10 mg 10/05/20 13:08 10/09/20 00:10 Labetalol Hcl 100 Mg/20 Ml Vial SLOW IVP 10 mg Q4H PRN Administration Systolic BP > 140 Multivitamins 1 tab 10/06/20 09:00 10/24/20 09:08 Multivit, Therapeutic 1 Tab PER TUBE 1 tab DAILY BRII Administration Ondansetron HCl 4 mg 10/17/20 20:58 10/17/20 21:29 Ondansetron Pf 4 Mg/2 Ml Vial IVP 4 mg Q6H PRN Administration Nausea/Vomiting Pantoprazole Sodium 40 mg 10/14/20 09:00 10/24/20 09:09 Pantoprazole 40 Mg Granules Packet PER TUBE 40 mg DAILY BRII Administration Sodium Chloride 10 ml 10/01/20 13:59 10/18/20 07:51 Flush - Normal Saline 10 Ml Syringe IVF 10 ml PRN PRN Administration Saline Flush Thiamine HCl 100 mg 10/02/20 15:00 10/23/20 16:15 Thiamine Hcl 200 Mg/2 Ml Vial SLOW IVP 100 mg Q24HR BRII Administration Hospitalist Exam Vitals: Vital Signs (12 hours) Temp Pulse Resp BP BP BP Pulse Ox 10/24/20 11:14 98.5 F 85 16 126/83 95 10/24/20 09:08 134/73 10/24/20 09:07 83 134/73 10/24/20 08:00 97 10/24/20 07:18 98.1 F 83 15 134/73 97 10/24/20 04:00 97.7 F 81 18 136/83 96 Weight Admit Weight 151 lb 0.266 oz Weight 149 lb 11.2 oz Most Recent Monitor Data Heart Rate from ECG 78 NIBP 124/71 NIBP BP-Mean 88 Respiration from ECG 20 SpO2 100 General Appearance: awake alert ENT: moist mucosa Neck: no thyromegaly Heart: RRR Respiratory: CTAB Gastrointestinal: soft, non-tender Gastrointestinal - other findings: PEG tube Skin: no rashes Psychiatric - other findings: Unable to assess Hosp A/P - Plan 50-year-old male with unknown past history was brought in on 10/01 to the emergency room with altered mentation. CT scan of the brain was consistent with large intraparenchymal hemorrhage centered within the left thalamus with mild surrounding vasogenic edema with midline shift of 1.[address] angiogram of the brain was negative for aneurysm. Patient pulled out Dobbhoff tube 2. He underwent PEG tube placement. Family is planning to transport him to [place] with assistance from consulate. (1) Acute encephalopathy Code(s): G93.40 - ENCEPHALOPATHY, UNSPECIFIED Status: Acute (2) Anemia Code(s): D64.9 - ANEMIA, UNSPECIFIED Status: Acute (3) Hyponatremia Code(s): E87.1 - HYPO-OSMOLALITY AND HYPONATREMIA Status: Acute (4) ICH (intracerebral hemorrhage) Code(s): I61.9 - NONTRAUMATIC INTRACEREBRAL HEMORRHAGE, UNSPECIFIED Status: Acute Qualifiers: Cerebral hemorrhage location: unspecified cerebral location (5) Leukocytosis Code(s): D72.829 - ELEVATED WHITE BLOOD CELL COUNT, UNSPECIFIED Status: Acute - Plan CT scan 10/06: large left intra-axila hematoma unchanged. Minimal right sided subarachonid hemorrhage. No new hemorrhage. Intraventricular hematoma slightly decreased This is a 50 year old male who presented unresponsive. He was found to have a large parenchymal bleed with intraventricular hemorrhage. He was found to be hypertensive. Neurosurgery was consulted and recommended conservative management. The patient had PEG tube placed 10/13. Currently awaiting on arranging transportation to [place] Acute encephalopathy secondary to large left intra-axial hematoma and intraventricular hemorrhage - CT scan 2 showed unchanged intra-axial hemtoma. Neurosurgery recommended 3 week follow up with repeat CT scan of head. Awaiting response from neurosurgery about safety of traveling to [place], currently not safe to go on airplane -needs outpatient neurosurgery f/u on discharge -family states they will f/u with surgeon in [place]. Left lower lobe pneumonia - WBC is down to 10.8. Chest X ray 10/06 showed left lower lobe infiltrate. He is s/p 10 days of zosyn. Repeat CBC tomorrow Hypertensive emergency -Improved continue amlodipine, hydralazine and coreg bid. Dysphagia - s/p PEG placement Disposition: On d/c needs transportation arranged to [place]
[2020-10-24] MEDS: Thiamine HCl 200 MG/2 ML VIAL SLOW IVP SCH (16:51)
[2020-10-24] MEDS: Insulin Glargine 15 UNITS in Pre-Filled Syringe 1 EACH SC SCH (21:50)
[2020-10-25] MEDS: HumaLOG 300 UNITS/3 ML VIAL SC PRN ×3 (05:11→16:30)
[2020-10-25] MEDS: Multivit, Therapeutic 1 TAB PER TUBE SCH (08:01)
[2020-10-25] MEDS: Carvedilol 6.25 MG TAB PO SCH ×2 (08:01→16:30)
[2020-10-25] MEDS: Pantoprazole 40 MG GRANULES PACKET PER TUBE SCH (08:02)
[2020-10-25] MEDS: Amlodipine 5 MG TAB PER TUBE SCH ×2 (08:02→20:19)
[2020-10-25] MEDS: Folic Acid 1 MG TAB PER TUBE SCH (08:02)
[2020-10-25] MEDS: Thiamine HCl 200 MG/2 ML VIAL SLOW IVP SCH (16:29)
--- NOTE | 2020-10-25 17:07 | PDOC.HOSPP ---
- Subjective Encounter Date: 10/25/20 Encounter Time: 13:00 Subjective: Patient seen for follow-up regarding acute encephalopathy. He is not answering questions, could not complete review of systems. - Objective Vital Signs & Weight: Vital Signs (12 hours) Temp Pulse Resp BP BP Pulse Ox 10/25/20 16:30 122/75 10/25/20 15:54 98.1 F 79 20 129/82 98 10/25/20 11:00 98.3 F 76 20 135/82 98 10/25/20 08:00 97.8 F 84 16 117/72 98 Weight Admit Weight 151 lb 0.266 oz Weight 144 lb 4.8 oz Most Recent Monitor Data Heart Rate from ECG 78 NIBP 124/71 NIBP BP-Mean 88 Respiration from ECG 20 SpO2 100 I&O: 10/24/20 10/25/20 10/26/20 06:59 06:59 06:59 Intake Total 3894 3600 1120 Balance 3894 3600 1120 Result Diagrams: 10/23/20 06:01 10/24/20 06:52 Additional Labs: Accuchecks 10/25/20 10/25/20 10/25/20 15:50 10:56 05:11 POC Glucose 232 H 260 H 208 H 10/25/20 10/24/20 10/24/20 01:10 19:40 18:17 POC Glucose 287 H 276 H 260 H I reviewed patient's labs and MAR Hospitalist ROS - Review of Systems ROS unobtainable: due to mental status - Medication Medications: Active Medications Generic Name Dose Route Start Last Admin Trade Name Freq PRN Reason Stop Dose Admin Acetaminophen 650 mg 10/04/20 15:04 10/13/20 22:35 Acetaminophen 650 Mg/20.3 Ml Udcup PO 650 mg Q4H PRN Administration pain/fever Amlodipine Besylate 5 mg 10/04/20 21:00 10/25/20 08:02 Amlodipine 5 Mg Tab PER TUBE 5 mg BID BRII Administration Carvedilol 6.25 mg 10/18/20 08:00 10/25/20 16:30 Carvedilol 6.25 Mg Tab PO 6.25 mg BID-WM BRII Administration Folic Acid 1 mg 10/06/20 09:00 10/25/20 08:02 Folic Acid 1 Mg Tab PER TUBE 1 mg DAILY BRII Administration Hydralazine HCl 5 mg 10/05/20 13:01 10/18/20 04:30 Hydralazine 20 Mg/Ml Vial SLOW IVP 5 mg Q4H PRN Administration Sbp Greater Than 140 Insulin Glargine 15 units/ 0.15 mls @ 0 mls/hr 10/20/20 21:00 10/24/20 21:50 Miscellaneous Medication SC 0.15 mls HS BRII Administration Insulin Human Lispro 0 units 10/19/20 13:46 10/25/20 16:30 Humalog 300 Units/3 Ml Vial SC 4 unit .MODERATE SLIDING SC PRN Administration Moderate Correctional Scale Insulin Human Regular 0 units 10/18/20 21:36 10/19/20 21:14 Insulin Regular 300 Units/3 Ml Vial SC 2 unit .BEDTIME SLIDING SC PRN Administration Bedtime Correctional Scale Labetalol HCl 10 mg 10/05/20 13:08 10/09/20 00:10 Labetalol Hcl 100 Mg/20 Ml Vial SLOW IVP 10 mg Q4H PRN Administration Systolic BP > 140 Multivitamins 1 tab 10/06/20 09:00 10/25/20 08:01 Multivit, Therapeutic 1 Tab PER TUBE 1 tab DAILY BRII Administration Ondansetron HCl 4 mg 10/17/20 20:58 10/17/20 21:29 Ondansetron Pf 4 Mg/2 Ml Vial IVP 4 mg Q6H PRN Administration Nausea/Vomiting Pantoprazole Sodium 40 mg 10/14/20 09:00 10/25/20 08:02 Pantoprazole 40 Mg Granules Packet PER TUBE 40 mg DAILY BRII Administration Sodium Chloride 10 ml 10/01/20 13:59 10/18/20 07:51 Flush - Normal Saline 10 Ml Syringe IVF 10 ml PRN PRN Administration Saline Flush Thiamine HCl 100 mg 10/02/20 15:00 10/25/20 16:29 Thiamine Hcl 200 Mg/2 Ml Vial SLOW IVP 100 mg Q24HR BRII Administration Hospitalist Exam Vitals: Vital Signs (12 hours) Temp Pulse Resp BP BP Pulse Ox 10/25/20 16:30 122/75 10/25/20 15:54 98.1 F 79 20 129/82 98 10/25/20 11:00 98.3 F 76 20 135/82 98 10/25/20 08:00 97.8 F 84 16 117/72 98 Weight Admit Weight 151 lb 0.266 oz Weight 144 lb 4.8 oz Most Recent Monitor Data Heart Rate from ECG 78 NIBP 124/71 NIBP BP-Mean 88 Respiration from ECG 20 SpO2 100 General Appearance: awake alert ENT: moist mucosa Neck: supple Heart: RRR Gastrointestinal: soft, non-tender, non-distended Gastrointestinal - other findings: Tube Neurological - other findings: Unable to assess Psychiatric - other findings: Unable to assess Hosp A/P - Plan 50-year-old male with unknown past history was brought in on 10/01 to the emergency room with altered mentation. CT scan of the brain was consistent with large intraparenchymal hemorrhage centered within the left thalamus with mild surrounding vasogenic edema with midline shift of 1.[address] angiogram of the b rain was negative for aneurysm. Patient pulled out Dobbhoff tube 2. He underwent PEG tube placement. Family is planning to transport him to [place] with assistance from consulate. (1) Acute encephalopathy Code(s): G93.40 - ENCEPHALOPATHY, UNSPECIFIED Status: Acute (2) Anemia Code(s): D64.9 - ANEMIA, UNSPECIFIED Status: Acute (3) Hyponatremia Code(s): E87.1 - HYPO-OSMOLALITY AND HYPONATREMIA Status: Acute (4) ICH (intracerebral hemorrhage) Code(s): I61.9 - NONTRAUMATIC INTRACEREBRAL HEMORRHAGE, UNSPECIFIED Status: Acute Qualifiers: Cerebral hemorrhage location: unspecified cerebral location (5) Leukocytosis Code(s): D72.829 - ELEVATED WHITE BLOOD CELL COUNT, UNSPECIFIED Status: Acute - Plan CT scan 10/06: large left intra-axila hematoma unchanged. Minimal right sided subarachonid hemorrhage. No new hemorrhage. Intraventricular hematoma slightly decreased This is a 50 year old male who presented unresponsive. He was found to have a large parenchymal bleed with intraventricular hemorrhage. He was found to be hypertensive. Neurosurgery was consulted and recommended conservative management. The patient had PEG tube placed 10/13. Currently awaiting on arranging transportation to [place] Acute encephalopathy secondary to large left intra-axial hematoma and intraventricular hemorrhage - CT scan 10/06 showed unchanged intra-axial hemtoma. Neurosurgery recommended 3 week follow up with repeat CT scan of head. Awaiting response from neurosurgery about safety of traveling to [place], currently not safe to go on airplane -needs outpatient neurosurgery f/u on discharge -family states they will f/u with surgeon in [place] -Discussed with neurosurgeon Dr. Hedrick today. He was okay with transporting patient by Road to [place]. Left lower lobe pneumonia -Patient completed course of antibiotic. Hypertensive emergency -Improved, continue amlodipine, hydralazine and coreg bid. Dysphagia - s/p PEG placement Disposition: On d/c needs transportation arranged to [place]
[2020-10-25] MEDS: Insulin Glargine 15 UNITS in Pre-Filled Syringe 1 EACH SC SCH (20:19)
[2020-10-26] MEDS: HumaLOG 300 UNITS/3 ML VIAL SC PRN ×3 (04:33→16:37)
[2020-10-26] MEDS: Carvedilol 6.25 MG TAB PO SCH ×2 (08:44→16:23)
[2020-10-26] MEDS: Multivit, Therapeutic 1 TAB PER TUBE SCH (08:47)
[2020-10-26] MEDS: Folic Acid 1 MG TAB PER TUBE SCH (08:47)
[2020-10-26] MEDS: Amlodipine 5 MG TAB PER TUBE SCH ×2 (08:51→20:38)
[2020-10-26] MEDS: Pantoprazole 40 MG GRANULES PACKET PER TUBE SCH (08:57)
[2020-10-26 13:01] VITALS: BMI 31.6
[2020-10-26] MEDS: Thiamine HCl 200 MG/2 ML VIAL SLOW IVP SCH (16:26)
--- NOTE | 2020-10-26 16:48 | PDOC.HOSPP ---
- Subjective Encounter Date: 10/26/20 Encounter Time: 08:00 Subjective: Patient seen in follow-up for acute encephalopathy. Nonverbal, could not complete review of systems. - Objective Vital Signs & Weight: Vital Signs (12 hours) Temp Pulse Pulse Resp BP BP BP 10/26/20 16:23 137/83 10/26/20 12:00 97.4 F L 82 19 10/26/20 11:27 82 145/83 H 161/81 H 10/26/20 08:51 74 146/84 H 10/26/20 08:44 146/84 H 10/26/20 07:27 97.7 F 74 16 10/26/20 05:00 97.6 F 76 18 BP BP Pulse Ox 10/26/20 16:23 10/26/20 12:00 145/83 H 97 10/26/20 11:27 10/26/20 08:51 10/26/20 08:44 10/26/20 07:27 156/87 H 97 10/26/20 05:00 139/85 98 Weight Admit Weight 151 lb 0.266 oz Weight 150 lb 12.8 oz Most Recent Monitor Data Heart Rate from ECG 78 NIBP 124/71 NIBP BP-Mean 88 Respiration from ECG 20 SpO2 100 I&O: 10/25/20 10/26/20 10/27/20 06:59 06:59 06:59 Intake Total 3600 2960 Balance 3600 2960 Result Diagrams: 10/23/20 06:01 10/24/20 06:52 Additional Labs: Accuchecks 10/26/20 10/26/20 10/26/20 16:21 15:27 13:41 POC Glucose 179 H 211 H 149 H 10/26/20 10/26/20 10/25/20 11:14 04:23 19:37 POC Glucose 233 H 247 H 207 H 10/23/20 18:15 POC Glucose 258 H Labs and MAR reviewed by me Hospitalist ROS - Review of Systems ROS unobtainable: due to mental status - Medication Medications: Active Medications Generic Name Dose Route Start Last Admin Trade Name Freq PRN Reason Stop Dose Admin Acetaminophen 650 mg 10/04/20 15:04 10/13/20 22:35 Acetaminophen 650 Mg/20.3 Ml Udcup PO 650 mg Q4H PRN Administration pain/fever Amlodipine Besylate 5 mg 10/04/20 21:00 10/26/20 08:51 Amlodipine 5 Mg Tab PER TUBE 5 mg BID BRII Administration Carvedilol 6.25 mg 10/18/20 08:00 10/26/20 16:23 Carvedilol 6.25 Mg Tab PO 6.25 mg BID- BRII Administration Folic Acid 1 mg 10/06/20 09:00 10/26/20 08:47 Folic Acid 1 Mg Tab PER TUBE 1 mg DAILY BRII Administration Hydralazine HCl 5 mg 10/05/20 13:01 10/18/20 04:30 Hydralazine 20 Mg/Ml Vial SLOW IVP 5 mg Q4H PRN Administration Sbp Greater Than 140 Insulin Glargine 15 units/ 0.15 mls @ 0 mls/hr 10/20/20 21:00 10/25/20 20:19 Miscellaneous Medication SC 0.15 mls HS BRII Administration Insulin Human Lispro 0 units 10/19/20 13:46 10/26/20 16:37 Humalog 300 Units/3 Ml Vial SC 2 unit .MODERATE SLIDING SC PRN Administration Moderate Correctional Scale Insulin Human Regular 0 units 10/18/20 21:36 10/19/20 21:14 Insulin Regular 300 Units/3 Ml Vial SC 2 unit .BEDTIME SLIDING SC PRN Administration Bedtime Correctional Scale Labetalol HCl 10 mg 10/05/20 13:08 10/09/20 00:10 Labetalol Hcl 100 Mg/20 Ml Vial SLOW IVP 10 mg Q4H PRN Administration Systolic BP > 140 Multivitamins 1 tab 10/06/20 09:00 10/26/20 08:47 Multivit, Therapeutic 1 Tab PER TUBE 1 tab DAILY BRII Administration Ondansetron HCl 4 mg 10/17/20 20:58 10/17/20 21:29 Ondansetron Pf 4 Mg/2 Ml Vial IVP 4 mg Q6H PRN Administration Nausea/Vomiting Pantoprazole Sodium 40 mg 10/14/20 09:00 10/26/20 08:57 Pantoprazole 40 Mg Granules Packet PER TUBE 40 mg DAILY BRII Administration Sodium Chloride 10 ml 10/01/20 13:59 10/18/20 07:51 Flush - Normal Saline 10 Ml Syringe IVF 10 ml PRN PRN Administration Saline Flush Thiamine HCl 100 mg 10/02/20 15:00 10/26/20 16:26 Thiamine Hcl 200 Mg/2 Ml Vial SLOW IVP 100 mg Q24HR BRII Administration Hospitalist Exam Vitals: Vital Signs (12 hours) Temp Pulse Pulse Resp BP BP BP 10/26/20 16:23 137/83 10/26/20 12:00 97.4 F L 82 19 10/26/20 11:27 82 145/83 H 161/81 H 10/26/20 08:51 74 146/84 H 10/26/20 08:44 146/84 H 10/26/20 07:27 97.7 F 74 16 10/26/20 05:00 97.6 F 76 18 BP BP Pulse Ox 10/26/20 16:23 10/26/20 12:00 145/83 H 97 10/26/20 11:27 10/26/20 08:51 10/26/20 08:44 10/26/20 07:27 156/87 H 97 10/26/20 05:00 139/85 98 Weight Admit Weight 151 lb 0.266 oz Weight 150 lb 12.8 oz Most Recent Monitor Data Heart Rate from ECG 78 NIBP 124/71 NIBP BP-Mean 88 Respiration from ECG 20 SpO2 100 General Appearance: awake alert Eye - other findings: Discharge from left eye ENT: moist mucosa Neck: supple Heart: RRR Respiratory: CTAB Gastrointestinal: soft, non-tender, normal bowel sounds Gastrointestinal - other findings: PEG tube Skin: no rashes Psychiatric - other findings: Could not assess Hosp A/P - Plan 50-year-old male with unknown past history was brought in on 10/01 to the emergency room with altered mentation. CT scan of the brain was consistent with large intraparenchymal hemorrhage centered within the left thalamus with mild surrounding vasogenic edema with midline shift of 1.[address] angiogram of the brain was negative for aneurysm. Patient pulled out Dobbhoff tube 2. He underwent PEG tube placement. Family is planning to transport him to [place] with assistance from consulate. (1) Acute encephalopathy Code(s): G93.40 - ENCEPHALOPATHY, UNSPECIFIED Status: Acute (2) Anemia Code(s): D64.9 - ANEMIA, UNSPECIFIED Status: Acute (3) Hyponatremia Code(s): E87.1 - HYPO-OSMOLALITY AND HYPONATREMIA Status: Acute (4) ICH (intracerebral hemorrhage) Code(s): I61.9 - NONTRAUMATIC INTRACEREBRAL HEMORRHAGE, UNSPECIFIED Status: Acute Qualifiers: Cerebral hemorrhage location: unspecified cerebral location (5) Leukocytosis Code(s): D72.829 - ELEVATED WHITE BLOOD CELL COUNT, UNSPECIFIED Status: Acute - Plan CT scan 10/06: large left intra-axila hematoma unchanged. Minimal right sided subarachonid hemorrhage. No new hemorrhage. Intraventricular hematoma slightly decreased This is a 50 year old male who presented unresponsive. He was found to have a large parenchymal bleed with intraventricular hemorrhage. He was found to be hypertensive. Neurosurgery was consulted and recommended conservative management. The patient had PEG tube placed 10/13. Currently awaiting on arranging transportation to [place] Acute encephalopathy secondary to large left intra-axial hematoma and intraventricular hemorrhage - CT scan 10/06 showed unchanged intra-axial hemtoma. Neurosurgery recommended 3 week follow up with repeat CT scan of head. Awaiting response from neurosurgery about safety of traveling to [place], currently not safe to go on airplane -needs outpatient neurosurgery f/u on discharge -family states they will f/u with surgeon in [place]. -Discussed with neurosurgeon Dr. Hedrick on October 25. He was okay with transporting patient by Road to [place]. Left lower lobe pneumonia -Patient completed course of antibiotic. Hypertensive emergency -Improved, continue amlodipine, hydralazine and coreg bid. Dysphagia - s/p PEG placement Start antibiotic eyedrops to the left eye. Disposition: On d/c needs transportation arranged to [place]
[2020-10-26] MEDS: Gentamicin Ophth Soln 0.3% 5 ml Bottle L EYE SCH ×2 (17:08→20:39)
[2020-10-26] MEDS: Insulin Glargine 15 UNITS in Pre-Filled Syringe 1 EACH SC SCH (20:39)
[2020-10-27] MEDS: Gentamicin Ophth Soln 0.3% 5 ml Bottle L EYE SCH ×6 (01:11→21:06)
[2020-10-27] MEDS: Multivit, Therapeutic 1 TAB PER TUBE SCH (08:36)
[2020-10-27] MEDS: Amlodipine 5 MG TAB PER TUBE SCH ×2 (08:36→21:06)
[2020-10-27] MEDS: Carvedilol 6.25 MG TAB PO SCH ×2 (08:37→16:05)
[2020-10-27] MEDS: Folic Acid 1 MG TAB PER TUBE SCH (08:37)
[2020-10-27] MEDS: Pantoprazole 40 MG GRANULES PACKET PER TUBE SCH (08:37)
[2020-10-27] MEDS: HumaLOG 300 UNITS/3 ML VIAL SC PRN ×2 (12:06→17:00)
[2020-10-27] MEDS: Thiamine HCl 200 MG/2 ML VIAL SLOW IVP SCH (14:20)
--- NOTE | 2020-10-27 18:34 | PDOC.HOSPP ---
- Subjective Encounter Date: 10/27/20 Encounter Time: 12:30 Subjective: Patient seen for follow-up regarding acute encephalopathy. Patient is nonverbal, could not complete review of systems. - Objective Vital Signs & Weight: Vital Signs (12 hours) Temp Pulse Resp BP BP Pulse Ox 10/27/20 16:05 147/84 H 10/27/20 16:00 97.4 F L 84 17 146/84 H 98 10/27/20 11:50 97.5 F L 82 17 141/91 H 97 10/27/20 08:37 153/86 H 10/27/20 08:36 85 153/86 H 10/27/20 07:20 97.5 F L 85 18 153/86 H 96 Weight Admit Weight 151 lb 0.266 oz Weight 150 lb 12.8 oz Most Recent Monitor Data Heart Rate from ECG 78 NIBP 124/71 NIBP BP-Mean 88 Respiration from ECG 20 SpO2 100 I&O: 10/26/20 10/27/20 10/28/20 06:59 06:59 06:59 Intake Total 2960 2049 270 Output Total 1 Balance 2960 2048 270 Result Diagrams: 10/23/20 06:01 10/24/20 06:52 Additional Labs: Accuchecks 10/27/20 10/27/20 10/27/20 16:10 13:45 11:58 POC Glucose 202 H 211 H 242 H 10/27/20 10/27/20 10/26/20 04:24 00:33 19:31 POC Glucose 192 H 244 H 221 H 10/26/20 17:45 POC Glucose 211 H I reviewed patient's labs and MAR Hospitalist ROS - Review of Systems ROS unobtainable: due to mental status - Medication Medications: Active Medications Generic Name Dose Route Start Last Admin Trade Name Freq PRN Reason Stop Dose Admin Acetaminophen 650 mg 10/04/20 15:04 10/13/20 22:35 Acetaminophen 650 Mg/20.3 Ml Udcup PO 650 mg Q4H PRN Administration pain/fever Amlodipine Besylate 5 mg 10/04/20 21:00 10/27/20 08:36 Amlodipine 5 Mg Tab PER TUBE 5 mg BID BRII Administration Carvedilol 6.25 mg 10/18/20 08:00 10/27/20 16:05 Carvedilol 6.25 Mg Tab PO 6.25 mg BID-WM BRII Administration Folic Acid 1 mg 10/06/20 09:00 10/27/20 08:37 Folic Acid 1 Mg Tab PER TUBE 1 mg DAILY BRII Administration Gentamicin Sulfate 1 drop 10/26/20 17:00 10/27/20 16:08 Gentamicin Ophth Soln 0.3% 5 Ml Bottle L EYE 1 drop Q4HR BRII Administration Hydralazine HCl 5 mg 10/05/20 13:01 10/18/20 04:30 Hydralazine 20 Mg/Ml Vial SLOW IVP 5 mg Q4H PRN Administration Sbp Greater Than 140 Insulin Glargine 15 units/ 0.15 mls @ 0 mls/hr 10/20/20 21:00 10/26/20 20:39 Miscellaneous Medication SC 0.15 mls HS BRII Administration Insulin Human Lispro 0 units 10/19/20 13:46 10/27/20 17:00 Humalog 300 Units/3 Ml Vial SC 4 unit .MODERATE SLIDING SC PRN Administration Moderate Correctional Scale Insulin Human Regular 0 units 10/18/20 21:36 10/19/20 21:14 Insulin Regular 300 Units/3 Ml Vial SC 2 unit .BEDTIME SLIDING SC PRN Administration Bedtime Correctional Scale Labetalol HCl 10 mg 10/05/20 13:08 10/09/20 00:10 Labetalol Hcl 100 Mg/20 Ml Vial SLOW IVP 10 mg Q4H PRN Administration Systolic BP > 140 Multivitamins 1 tab 10/06/20 09:00 10/27/20 08:36 Multivit, Therapeutic 1 Tab PER TUBE 1 tab DAILY BRII Administration Ondansetron HCl 4 mg 10/17/20 20:58 10/17/20 21:29 Ondansetron Pf 4 Mg/2 Ml Vial IVP 4 mg Q6H PRN Administration Nausea/Vomiting Pantoprazole Sodium 40 mg 10/14/20 09:00 10/27/20 08:37 Pantoprazole 40 Mg Granules Packet PER TUBE 40 mg DAILY BRII Administration Sodium Chloride 10 ml 10/01/20 13:59 10/18/20 07:51 Flush - Normal Saline 10 Ml Syringe IVF 10 ml PRN PRN Administration Saline Flush Thiamine HCl 100 mg 10/02/20 15:00 10/27/20 14:20 Thiamine Hcl 200 Mg/2 Ml Vial SLOW IVP 100 mg Q24HR BRII Administration Hospitalist Exam Vitals: Vital Signs (12 hours) Temp Pulse Resp BP BP Pulse Ox 10/27/20 16:05 147/84 H 10/27/20 16:00 97.4 F L 84 17 146/84 H 98 10/27/20 11:50 97.5 F L 82 17 141/91 H 97 10/27/20 08:37 153/86 H 10/27/20 08:36 85 153/86 H 10/27/20 07:20 97.5 F L 85 18 153/86 H 96 Weight Admit Weight 151 lb 0.266 oz Weight 150 lb 12.8 oz Most Recent Monitor Data Heart Rate from ECG 78 NIBP 124/71 NIBP BP-Mean 88 Respiration from ECG 20 SpO2 100 Eye: anicteric sclera ENT: normocephalic atraumatic Neck: symmetric, no lymphadenopathy Heart: RRR Respiratory: CTAB Gastrointestinal: soft, normal bowel sounds Gastrointestinal - other findings: Status post PEG tube Skin: no rashes Psychiatric - other findings: Unable to assess Hosp A/P - Plan 50-year-old male with unknown past history was brought in on 10/01 to the emergency room with altered mentation. CT scan of the brain was consistent with large intraparenchymal hemorrhage centered within the left thalamus with mild surrounding vasogenic edema with midline shift of 1.[address] angiogram of the brain was negative for aneurysm. Patient pulled out Dobbhoff tube 2. He underwent PEG tube placement. Family is planning to transport him to [place] with assistance from consulate. (1) Acute encephalopathy Code(s): G93.40 - ENCEPHALOPATHY, UNSPECIFIED Status: Acute (2) Anemia Code(s): D64.9 - ANEMIA, UNSPECIFIED Status: Acute (3) Hyponatremia Code(s): E87.1 - HYPO-OSMOLALITY AND HYPONATREMIA Status: Acute (4) ICH (intracerebral hemorrhage) Code(s): I61.9 - NONTRAUMATIC INTRACEREBRAL HEMORRHAGE, UNSPECIFIED Status: Acute Qualifiers: Cerebral hemorrhage location: unspecified cerebral location (5) Leukocytosis Code(s): D72.829 - ELEVATED WHITE BLOOD CELL COUNT, UNSPECIFIED Status: Acute - Plan CT scan 10/06: large left intra-axila hematoma unchanged. Minimal right sided subarachonid hemorrhage. No new hemorrhage. Intraventricular hematoma slightly decreased This is a 50 year old male who presented unresponsive. He was found to have a large parenchymal bleed with intraventricular hemorrhage. He was found to be hypertensive. Neurosurgery was consulted and recommended conservative management. The patient had PEG tube placed 10/13. Currently awaiting on arranging transportation to [place] Acute encephalopathy secondary to large left intra-axial hematoma and intraventricular hemorrhage -No significant change -family states they will f/u with surgeon in [place] and [place]. -Discussed with neurosurgeon Dr. Hedrick on October 25. He was okay with transporting patient by Road to [place]. Left lower lobe pneumonia -Patient completed course of antibiotic. Hypertensive emergency -Improved, continue amlodipine, hydralazine and coreg bid. Dysphagia - s/p PEG placement Start antibiotic eyedrops to the left eye. Disposition: On d/c needs transportation arranged to [place]
[2020-10-27] MEDS: Insulin Glargine 15 UNITS in Pre-Filled Syringe 1 EACH SC SCH (21:06)
[2020-10-28] MEDS: Insulin Regular 300 UNITS/3 ML VIAL SC PRN (01:10)
[2020-10-28] MEDS: Gentamicin Ophth Soln 0.3% 5 ml Bottle L EYE SCH ×6 (01:12→20:41)
[2020-10-28] MEDS: Carvedilol 6.25 MG TAB PO SCH ×2 (08:31→16:52)
[2020-10-28] MEDS: Amlodipine 5 MG TAB PER TUBE SCH ×2 (08:31→20:41)
[2020-10-28] MEDS: Folic Acid 1 MG TAB PER TUBE SCH (08:32)
[2020-10-28] MEDS: Pantoprazole 40 MG GRANULES PACKET PER TUBE SCH (08:32)
[2020-10-28] MEDS: Multivit, Therapeutic 1 TAB PER TUBE SCH (08:32)
[2020-10-28] MEDS: HumaLOG 300 UNITS/3 ML VIAL SC PRN (12:25)
[2020-10-28] MEDS: Thiamine HCl 200 MG/2 ML VIAL SLOW IVP SCH (16:50)
--- NOTE | 2020-10-28 19:03 | PDOC.HOSPP ---
- Subjective Encounter Date: 10/28/20 Encounter Time: 15:00 Subjective: Patient seen for follow-up regarding encephalopathy. Continues to be nonverbal. - Objective Vital Signs & Weight: Vital Signs (12 hours) Temp Pulse Pulse Resp BP BP BP 10/28/20 16:52 154/86 H 10/28/20 09:24 87 115/80 10/28/20 08:31 87 128/79 10/28/20 08:00 10/28/20 07:29 98.1 F 87 18 128/79 Pulse Ox 10/28/20 16:52 10/28/20 09:24 10/28/20 08:31 10/28/20 08:00 96 10/28/20 07:29 96 Weight Admit Weight 151 lb 0.266 oz Weight 150 lb 12.8 oz Most Recent Monitor Data Heart Rate from ECG 78 NIBP 124/71 NIBP BP-Mean 88 Respiration from ECG 20 SpO2 100 I&O: 10/27/20 10/28/20 10/29/20 06:59 06:59 06:59 Intake Total 2048 2057 2159 Output Total 1 3 Balance 2047 2057 2156 Result Diagrams: 10/23/20 06:01 10/24/20 06:52 Additional Labs: Accuchecks 10/28/20 10/28/20 10/28/20 15:54 11:05 05:20 POC Glucose 207 H 261 H 176 H 10/28/20 10/27/20 01:05 20:55 POC Glucose 232 H 223 H Labs and MAR reviewed by me Hospitalist ROS - Review of Systems ROS unobtainable: due to mental status - Medication Medications: Active Medications Generic Name Dose Route Start Last Admin Trade Name Freq PRN Reason Stop Dose Admin Acetaminophen 650 mg 10/04/20 15:04 10/13/20 22:35 Acetaminophen 650 Mg/20.3 Ml Udcup PO 650 mg Q4H PRN Administration pain/fever Amlodipine Besylate 5 mg 10/04/20 21:00 10/28/20 08:31 Amlodipine 5 Mg Tab PER TUBE 5 mg BID BRII Administration Carvedilol 6.25 mg 10/18/20 08:00 10/28/20 16:52 Carvedilol 6.25 Mg Tab PO 6.25 mg BID- BRII Administration Folic Acid 1 mg 10/06/20 09:00 10/28/20 08:32 Folic Acid 1 Mg Tab PER TUBE 1 mg DAILY BRII Administration Gentamicin Sulfate 1 drop 10/26/20 17:00 10/28/20 17:03 Gentamicin Ophth Soln 0.3% 5 Ml Bottle L EYE 1 drop Q4HR BRII Administration Hydralazine HCl 5 mg 10/05/20 13:01 10/18/20 04:30 Hydralazine 20 Mg/Ml Vial SLOW IVP 5 mg Q4H PRN Administration Sbp Greater Than 140 Insulin Glargine 15 units/ 0.15 mls @ 0 mls/hr 10/20/20 21:00 10/27/20 21:06 Miscellaneous Medication SC 0.15 mls HS BRII Administration Insulin Human Lispro 0 units 10/19/20 13:46 10/28/20 12:25 Humalog 300 Units/3 Ml Vial SC 6 unit .MODERATE SLIDING SC PRN Administration Moderate Correctional Scale Insulin Human Regular 0 units 10/18/20 21:36 10/28/20 01:10 Insulin Regular 300 Units/3 Ml Vial SC 2 unit .BEDTIME SLIDING SC PRN Administration Bedtime Correctional Scale Labetalol HCl 10 mg 10/05/20 13:08 10/09/20 00:10 Labetalol Hcl 100 Mg/20 Ml Vial SLOW IVP 10 mg Q4H PRN Administration Systolic BP > 140 Multivitamins 1 tab 10/06/20 09:00 10/28/20 08:32 Multivit, Therapeutic 1 Tab PER TUBE 1 tab DAILY BRII Administration Ondansetron HCl 4 mg 10/17/20 20:58 10/17/20 21:29 Ondansetron Pf 4 Mg/2 Ml Vial IVP 4 mg Q6H PRN Administration Nausea/Vomiting Pantoprazole Sodium 40 mg 10/14/20 09:00 10/28/20 08:32 Pantoprazole 40 Mg Granules Packet PER TUBE 40 mg DAILY BRII Administration Sodium Chloride 10 ml 10/01/20 13:59 10/18/20 07:51 Flush - Normal Saline 10 Ml Syringe IVF 10 ml PRN PRN Administration Saline Flush Thiamine HCl 100 mg 10/02/20 15:00 10/28/20 16:50 Thiamine Hcl 200 Mg/2 Ml Vial SLOW IVP 100 mg Q24HR BRII Administration Hospitalist Exam Vitals: Vital Signs (12 hours) Temp Pulse Pulse Resp BP BP BP 10/28/20 16:52 154/86 H 10/28/20 09:24 87 115/80 10/28/20 08:31 87 128/79 10/28/20 08:00 10/28/20 07:29 98.1 F 87 18 128/79 Pulse Ox 10/28/20 16:52 10/28/20 09:24 10/28/20 08:31 10/28/20 08:00 96 10/28/20 07:29 96 Weight Admit Weight 151 lb 0.266 oz Weight 150 lb 12.8 oz Most Recent Monitor Data Heart Rate from ECG 78 NIBP 124/71 NIBP BP-Mean 88 Respiration from ECG 20 SpO2 100 General Appearance: awake alert Heart: RRR Respiratory: CTAB Extremities: no cyanosis Neurological - other findings: Unable to assess Psychiatric: normal affect Hosp A/P - Plan 50-year-old male with unknown past history was brought in on 10/01 to the emergency room with altered mentation. CT scan of the brain was consistent with large intraparenchymal hemorrhage centered within the left thalamus with mild surrounding vasogenic edema with midline shift of 1.[address] angiogram of the brain was negative for aneurysm. Patient pulled out Dobbhoff tube 2. He underwent PEG tube placement. Family is planning to transport him to [place] with assistance from consulate. (1) Acute encephalopathy Code(s): G93.40 - ENCEPHALOPATHY, UNSPECIFIED Status: Acute (2) Anemia Code(s): D64.9 - ANEMIA, UNSPECIFIED Status: Acute (3) Hyponatremia Code(s): E87.1 - HYPO-OSMOLALITY AND HYPONATREMIA Status: Acute (4) ICH (intracerebral hemorrhage) Code(s): I61.9 - NONTRAUMATIC INTRACEREBRAL HEMORRHAGE, UNSPECIFIED Status: Acute Qualifiers: Cerebral hemorrhage location: unspecified cerebral location (5) Leukocytosis Code(s): D72.829 - ELEVATED WHITE BLOOD CELL COUNT, UNSPECIFIED Status: Acute - Plan Acute encephalopathy secondary to large left intra-axial hematoma and intraventricular hemorrhage -No significant change -family states they will f/u with surgeon in [place] and [place]. -Discussed with neurosurgeon Dr. Hedrick on October 25. He was okay with transporting patient by Road to [place]. Left lower lobe pneumonia -Patient completed course of antibiotic. Hypertensive emergency -Improved Dysphagia - s/p PEG placement Start antibiotic eyedrops to the left eye. Disposition: On d/c needs transportation arranged to [place] Will likely discharge in 2 days.
[2020-10-28] MEDS: Insulin Glargine 15 UNITS in Pre-Filled Syringe 1 EACH SC SCH (20:42)
[2020-10-29] MEDS: Gentamicin Ophth Soln 0.3% 5 ml Bottle L EYE SCH ×6 (00:30→19:59)
[2020-10-29] MEDS: HumaLOG 300 UNITS/3 ML VIAL SC PRN ×3 (04:59→16:53)
[2020-10-29] MEDS: Carvedilol 6.25 MG TAB PO SCH ×2 (09:28→16:07)
[2020-10-29] MEDS: Amlodipine 5 MG TAB PER TUBE SCH ×2 (09:29→19:59)
[2020-10-29] MEDS: Pantoprazole 40 MG GRANULES PACKET PER TUBE SCH (09:29)
[2020-10-29] MEDS: Multivit, Therapeutic 1 TAB PER TUBE SCH (09:29)
[2020-10-29] MEDS: Folic Acid 1 MG TAB PER TUBE SCH (09:29)
--- NOTE | 2020-10-29 13:18 | PDOC.DS.DS ---
Provider Date of Admission: 10/01/20 13:32 Date of Discharge: 10/29/20 Admitting Provider: Delta Mcgraw MD Consultations: Gastroentrology (Dr. Aranda), Neurology (Dr. Wan), Neurosurgery (Dr. Glass) Primary Care Physician: JONNY PCP PROVIDER Course Hospital Course: Discharge diagnosis: 1. Intracranial bleed 2. Alcohol abuse 3. Hyponatremia 4. Left lower lobe pneumonia 5. Oral dysphagia 6. Diabetes mellitus 7. Hypertension 8. Hypokalemia 9. COVID-19 test negative 10. Influenza test negative Hospital course: Patient is a pleasant 50-year-old gentleman who was admitted to the hospital on October 01, [address] scan of the head showed large intraparenchymal hemorrhage centered within the left thalamus with mild surrounding vasogenic edema and left to right midline shift of 1 to 2 mm. There was intraventricular extension of the hemorrhage within the third ventricle and the lateral ventricles. CT angiogram of the head and neck showed moderate narrowing involving the proximal left cavernous ICA likely related to eccentric plaque. There was mild atherosclerotic irregularity involving the petrous segment of the left ICA. There was mild irregularity involving the petrous segment of the right ICA with mild to moderate narrowing of the distal right cavernous ICA. Neurosurgery service was consulted. The recommended Cardene drip and blood pressure control. Patient had repeat CT scan of the brain, which showed that intraventricular hemorrhage and ventriculomegaly were not significantly changed. Left thalamic hemorrhage was slightly smaller. Neurology service was consulted for altered mental status. EEG was negative for acute intracranial pathology. Patient was also diagnosed with uncontrolled diabetes mellitus type 2 with A1c of 10.4. He was started on diabetes medications in the form of insulin, transition to enteric medications at the time of discharge. Patient was also treated for left lower lobe pneumonia with intravenous antibiotics. Patient was started on Dobbhoff feeds. He continued to improve very slowly. He was seen by speech pathology for dysphagia. He was found to have oral dysphagia on modified barium swallow study. Gastroenterology service was consulted for PEG tube placement. On October 13 he underwent PEG tube placement. During the PEG tube placement it was noted that he had small ulcers in the duodenal bulb and second portion of the duodenum, consistent with stress ulce ration. Patient was started on PEG tube feeds. His family initially wished to take him home locally but subsequently due to social reasons they wished to take him to [place]. CT scan of the brain done on October 23 showed some improvement in his edema change and improving hemorrhage related to the left thalamic bleed. The intraventricular bleed had resolved. I discussed his transfer with neurosurgery service. There were okay with transfer to [place] by Road. This transfer will be carried out on October 30, 2020. Discharge destination: Home in [place] Resuscitation Status: 10/01/20 13:59 Resuscitation Status Routine Resuscitation Status: FULL: Full Resuscitation Lab Results: 10/23/20 06:01 10/24/20 06:52 Microbiology - Entire Visit 10/07/20 15:56 Urine Straight Catheter Urine Culture - Final NO GROWTH AT 48 HOURS Vitals: Vital Signs (12 hours) Temp Pulse Resp BP BP Pulse Ox 10/29/20 09:29 67 10/29/20 09:28 134/82 10/29/20 08:00 98 10/29/20 07:45 98.5 F 67 16 134/82 98 10/29/20 06:20 98.4 F 72 18 127/80 97 Weight Admit Weight 151 lb 0.266 oz Weight 150 lb 12.8 oz Most Recent Monitor Data Heart Rate from ECG 78 NIBP 124/71 NIBP BP-Mean 88 Respiration from ECG 20 SpO2 100 Physical Exam: The patient was seen and examined on the day of discharge. Plan Prescriptions: Carvedilol [Coreg] 6.25 mg PER TUBE BID-WM #60 tab glipiZIDE [Glipizide] 5 mg PER TUBE BID #60 tablet metFORMIN HCl [Metformin HCl] 500 mg PER TUBE BID #300 ml Amlodipine [Norvasc] 5 mg PER TUBE BID #60 tab Thiamine 100 mg PER TUBE DAILY #30 tab Home Medications: Medication Instructions Recorded Confirmed Type Amlodipine [Norvasc] 5 mg PER TUBE BID #60 tab 10/29/20 Rx Carvedilol [Coreg] 6.25 mg PER TUBE BID-WM #60 tab 10/29/20 Rx Pantoprazole [Protonix] 40 mg PO DAILY #30 tab 10/29/20 Rx Thiamine 100 mg PER TUBE DAILY #30 tab 10/29/20 Rx glipiZIDE [Glipizide] 5 mg PER TUBE BID #60 tablet 10/29/20 Rx metFORMIN HCl [Metformin HCl] 500 mg PER TUBE BID #300 ml 10/29/20 Rx Allergies: No Allergy Information Available Allergy (Verified 10/06/20 17:00) Referrals: PROVIDER,NO PCP [Primary Care Provider] - Disposition: HOME Quality CORE MEASURES:: N/A
[2020-10-29] MEDS: Thiamine HCl 200 MG/2 ML VIAL SLOW IVP SCH (16:11)
--- NOTE | 2020-10-29 18:21 | PDOC.HOSPP ---
- Subjective Encounter Date: 10/29/20 Encounter Time: 10:30 Subjective: Patient seen for follow-up regarding encephalopathy. He is opening his eyes to voice but not speaking, could not complete review of systems. - Objective Vital Signs & Weight: Vital Signs (12 hours) Temp Pulse Resp BP BP Pulse Ox 10/29/20 16:07 152/85 H 10/29/20 09:29 67 10/29/20 09:28 134/82 10/29/20 08:00 98 10/29/20 07:45 98.5 F 67 16 134/82 98 10/29/20 06:20 98.4 F 72 18 127/80 97 Weight Admit Weight 151 lb 0.266 oz Weight 150 lb 12.8 oz Most Recent Monitor Data Heart Rate from ECG 78 NIBP 124/71 NIBP BP-Mean 88 Respiration from ECG 20 SpO2 100 I&O: 10/28/20 10/29/20 10/30/20 06:59 06:59 06:59 Intake Total 2057 2880 1080 Output Total 3 Balance 20579 1080 Result Diagrams: 10/23/20 06:01 10/24/20 06:52 Additional Labs: Accuchecks 10/29/20 10/28/20 04:27 19:33 POC Glucose 198 H 217 H I reviewed patient's labs and MAR Hospitalist ROS - Review of Systems ROS unobtainable: due to mental status - Medication Medications: Active Medications Generic Name Dose Route Start Last Admin Trade Name Freq PRN Reason Stop Dose Admin Acetaminophen 650 mg 10/04/20 15:04 10/13/20 22:35 Acetaminophen 650 Mg/20.3 Ml Udcup PO 650 mg Q4H PRN Administration pain/fever Amlodipine Besylate 5 mg 10/04/20 21:00 10/29/20 09:29 Amlodipine 5 Mg Tab PER TUBE 5 mg BID BRII Administration Carvedilol 6.25 mg 10/18/20 08:00 10/29/20 16:07 Carvedilol 6.25 Mg Tab PO 6.25 mg BID-WM BRII Administration Folic Acid 1 mg 10/06/20 09:00 10/29/20 09:29 Folic Acid 1 Mg Tab PER TUBE 1 mg DAILY BRII Administration Gentamicin Sulfate 1 drop 10/26/20 17:00 10/29/20 16:12 Gentamicin Ophth Soln 0.3% 5 Ml Bottle L EYE 1 drop Q4HR BRII Administration Hydralazine HCl 5 mg 10/05/20 13:01 10/18/20 04:30 Hydralazine 20 Mg/Ml Vial SLOW IVP 5 mg Q4H PRN Administration Sbp Greater Than 140 Insulin Glargine 15 units/ 0.15 mls @ 0 mls/hr 10/20/20 21:00 10/28/20 20:42 Miscellaneous Medication SC 0.15 mls HS BRII Administration Insulin Human Lispro 0 units 10/19/20 13:46 10/29/20 16:53 Humalog 300 Units/3 Ml Vial SC 4 unit .MODERATE SLIDING SC PRN Administration Moderate Correctional Scale Insulin Human Regular 0 units 10/18/20 21:36 10/28/20 01:10 Insulin Regular 300 Units/3 Ml Vial SC 2 unit .BEDTIME SLIDING SC PRN Administration Bedtime Correctional Scale Labetalol HCl 10 mg 10/05/20 13:08 10/09/20 00:10 Labetalol Hcl 100 Mg/20 Ml Vial SLOW IVP 10 mg Q4H PRN Administration Systolic BP > 140 Multivitamins 1 tab 10/06/20 09:00 10/29/20 09:29 Multivit, Therapeutic 1 Tab PER TUBE 1 tab DAILY BIRI Administration Ondansetron HCl 4 mg 10/17/20 20:58 10/17/20 21:29 Ondansetron Pf 4 Mg/2 Ml Vial IVP 4 mg Q6H PRN Administration Nausea/Vomiting Pantoprazole Sodium 40 mg 10/14/20 09:00 10/29/20 09:29 Pantoprazole 40 Mg Granules Packet PER TUBE 40 mg DAILY BRII Administration Sodium Chloride 10 ml 10/01/20 13:59 10/18/20 07:51 Flush - Normal Saline 10 Ml Syringe IVF 10 ml PRN PRN Administration Saline Flush Thiamine HCl 100 mg 10/02/20 15:00 10/29/20 16:11 Thiamine Hcl 200 Mg/2 Ml Vial SLOW IVP 100 mg Q24HR BRII Administration Hospitalist Exam Vitals: Vital Signs (12 hours) Temp Pulse Resp BP BP Pulse Ox 10/29/20 16:07 152/85 H 10/29/20 09:29 67 10/29/20 09:28 134/82 10/29/20 08:00 98 10/29/20 07:45 98.5 F 67 16 134/82 98 10/29/20 06:20 98.4 F 72 18 127/80 97 Weight Admit Weight 151 lb 0.266 oz Weight 150 lb 12.8 oz Most Recent Monitor Data Heart Rate from ECG 78 NIBP 124/71 NIBP BP-Mean 88 Respiration from ECG 20 SpO2 100 General Appearance: awake alert ENT: normocephalic atraumatic Neck: supple Heart: RRR Respiratory: CTAB Gastrointestinal: non-tender, non-distended Gastrointestinal - other findings: PEG tube Psychiatric - other findings: Unable to assess Hosp A/P - Plan 50-year-old male with unknown past history was brought in on 10/01 to the emergency room with altered mentation. CT scan of the brain was consistent with large intraparenchymal hemorrhage centered within the left thalamus with mild surrounding vasogenic edema with midline shift of 1.[address] angiogram of the brain was negative for aneurysm. Patient pulled out Dobbhoff tube 2. He underwent PEG tube placement. Family is planning to transport him to [place] with assistance from consulate. (1) Acute encephalopathy Code(s): G93.40 - ENCEPHALOPATHY, UNSPECIFIED Status: Acute (2) Anemia Code(s): D64.9 - ANEMIA, UNSPECIFIED Status: Acute (3) Hyponatremia Code(s): E87.1 - HYPO-OSMOLALITY AND HYPONATREMIA Status: Acute (4) ICH (intracerebral hemorrhage) Code(s): I61.9 - NONTRAUMATIC INTRACEREBRAL HEMORRHAGE, UNSPECIFIED Status: Acute Qualifiers: Cerebral hemorrhage location: unspecified cerebral location (5) Leukocytosis Code(s): D72.829 - ELEVATED WHITE BLOOD CELL COUNT, UNSPECIFIED Status: Acute - Plan Acute encephalopathy secondary to large left intra-axial hematoma and intraventricular hemorrhage -Slowly improving -family wants to f/u with surgeon in [place] and they want to take him by personal vehicle. -Discussed with neurosurgeon Dr. Hedrick on October 25. He was okay with transporting patient by Road to [place]. Left lower lobe pneumonia -Patient completed course of antibiotic. Hypertensive emergency -Improved Dysphagia - s/p PEG placement Start antibiotic eyedrops to the left eye. Disposition: On d/c needs transportation arranged to [place] Will likely discharge tomorrow
[2020-10-29] MEDS: Insulin Glargine 15 UNITS in Pre-Filled Syringe 1 EACH SC SCH (20:35)
[2020-10-30] MEDS: HumaLOG 300 UNITS/3 ML VIAL SC PRN ×2 (00:23→05:58)
[2020-10-30] MEDS: Gentamicin Ophth Soln 0.3% 5 ml Bottle L EYE SCH ×3 (00:29→08:47)
--- NOTE | 2020-10-30 07:59 | PDOC.DS.DS ---
Provider Date of Admission: 10/01/20 13:32 Date of Discharge: 10/30/20 Admitting Provider: Delta Mcgraw MD Consultations: Gastroentrology (Dr. Aranda), Neurology (Dr. Wan), Neurosurgery (Dr. Hedrick) Primary Care Physician: JONNY PCP PROVIDER Course Hospital Course: Discharge diagnosis: 1. Intracranial bleed 2. Alcohol abuse 3. Hyponatremia 4. Left lower lobe pneumonia 5. Oral dysphagia 6. Diabetes mellitus 7. Hypertension 8. Hypokalemia 9. COVID-19 test negative 10. Influenza test negative Hospital course: Patient is a pleasant 50-year-old gentleman who was admitted to the hospital on October 01, [address] scan of the head showed large intraparenchymal hemorrhage centered within the left thalamus with mild surrounding vasogenic edema and left to right midline shift of 1 to 2 mm. There was intraventricular extension of the hemorrhage within the third ventricle and the lateral ventricles. CT angiogram of the head and neck showed moderate narrowing involving the proximal left cavernous ICA likely related to eccentric plaque. There was mild atherosclerotic irregularity involving the petrous segment of the left ICA. There was mild irregularity involving the petrous segment of the right ICA with mild to moderate narrowing of the distal right cavernous ICA. Neurosurgery service was consulted. The recommended Cardene drip and blood pressure control. Patient had repeat CT scan of the brain, which showed that intraventricular hemorrhage and ventriculomegaly were not significantly changed. Left thalamic hemorrhage was slightly smaller. Neurology service was consulted for altered mental status. EEG was negative for acute intracranial pathology. Patient was also diagnosed with uncontrolled diabetes mellitus type 2 with A1c of 10.4. He was started on diabetes medications in the form of insulin, transition to enteric medications at the time of discharge. Patient was also treated for left lower lobe pneumonia with intravenous antibiotics. Patient was started on Dobbhoff feeds. He continued to improve very slowly. He was seen by speech pathology for dysphagia. He was found to have oral dysphagia on modified barium swallow study. Gastroenterology service was consulted for PEG tube placement. On October 13 he underwent PEG tube placement. During the PEG tube placement it was noted that he had small ulcers in the duodenal bulb and second portion of the duodenum, consistent with stress ulcer ation. Patient was started on PEG tube feeds. His family initially wished to take him home locally but subsequently due to social reasons they wished to take him to [place]. CT scan of the brain done on October 23 showed some improvement in his edema change and improving hemorrhage related to the left thalamic bleed. The intraventricular bleed had resolved. I discussed his transfer with neurosurgery service. There were okay with transfer to [place] by Road. This transfer will be carried out on October 30, 2020. Discharge destination: Home in [place] Resuscitation Status: 10/01/20 13:59 Resuscitation Status Routine Resuscitation Status: FULL: Full Resuscitation Lab Results: 10/23/20 06:01 10/24/20 06:52 Microbiology - Entire Visit 10/07/20 15:56 Urine Straight Catheter Urine Culture - Final NO GROWTH AT 48 HOURS Vitals: Vital Signs (12 hours) Pulse BP Pulse Ox 10/29/20 20:00 96 10/29/20 19:59 75 139/80 Weight Admit Weight 151 lb 0.266 oz Weight 150 lb 12.8 oz Most Recent Monitor Data Heart Rate from ECG 78 NIBP 124/71 NIBP BP-Mean 88 Respiration from ECG 20 SpO2 100 Physical Exam: The patient was seen and examined on the day of discharge. Plan Prescriptions: Carvedilol [Coreg] 6.25 mg PER TUBE BID-WM #60 tab glipiZIDE [Glipizide] 5 mg PER TUBE BID #60 tablet metFORMIN HCl [Metformin HCl] 500 mg PER TUBE BID #60 tablet Amlodipine [Norvasc] 5 mg PER TUBE BID #60 tab Pantoprazole [Protonix] 40 mg PO DAILY #30 tab Thiamine 100 mg PER TUBE DAILY #30 tab Home Medications: Medication Instructions Recorded Confirmed Type Amlodipine [Norvasc] 5 mg PER TUBE BID #60 tab 10/29/20 Rx Carvedilol [Coreg] 6.25 mg PER TUBE BID-WM #60 tab 10/29/20 Rx Pantoprazole [Protonix] 40 mg PO DAILY #30 tab 10/29/20 Rx Thiamine 100 mg PER TUBE DAILY #30 tab 10/29/20 Rx glipiZIDE [Glipizide] 5 mg PER TUBE BID #60 tablet 10/29/20 Rx metFORMIN HCl [Metformin HCl] 500 mg PER TUBE BID #60 tablet 10/29/20 Rx Allergies: No Allergy Information Available Allergy (Verified 10/06/20 17:00) Referrals: PROVIDER,NO PCP [Primary Care Provider] - Disposition: HOME Quality CORE MEASURES:: N/A
[2020-10-30 08:26] VITALS: BP 150/85; TEMP 98.4
[2020-10-30] MEDS: Multivit, Therapeutic 1 TAB PER TUBE SCH (08:46)
[2020-10-30] MEDS: Carvedilol 6.25 MG TAB PO SCH (08:46)
[2020-10-30] MEDS: Amlodipine 5 MG TAB PER TUBE SCH (08:46)
[2020-10-30] MEDS: Folic Acid 1 MG TAB PER TUBE SCH (08:47)
[2020-10-30] MEDS: Pantoprazole 40 MG GRANULES PACKET PER TUBE SCH (08:47)
== END 2020-10-30 10:11 | disposition home or self-care (01) | DRG 64 ==
LOC: ERS 11:55 → ERHOLD 13:32 → IMCU/EMU 10-02 22:51 → 2NO 10-05 16:29 → T4-B 10-14 16:11
PROVIDERS: ADMIT Internal Medicine; ATTEND Internal Medicine
PROC: HZ2ZZZZ Detoxification Services for Substance Abuse Treatment (ICD-10-PCS; 2020-10-01)
PROC: 0VTTXZZ Resection of Prepuce, External Approach (ICD-10-PCS; 2020-10-07)
PROC: 0DH63UZ Insertion of Feeding Device into Stomach, Percutaneous Approach (ICD-10-PCS; principal; 2020-10-13)
DX: I61.0 Nontraumatic intracerebral hemorrhage in hemisphere, subcortical (principal); G93.6 Cerebral edema; A41.9 Sepsis, unspecified organism; G93.41 Metabolic encephalopathy; J69.0 Pneumonitis due to inhalation of food and vomit; E87.1 Hypo-osmolality and hyponatremia; I16.1 Hypertensive emergency; G81.91 Hemiplegia, unspecified affecting right dominant side; Z20.822 Contact with and (suspected) exposure to COVID-19; F10.10 Alcohol abuse, uncomplicated; I10 Essential (primary) hypertension; E87.6 Hypokalemia; K26.9 Duodenal ulcer, unspecified as acute or chronic, without hemorrhage or perforation; Y90.0 Blood alcohol level of less than 20 mg/100 ml; I61.3 Nontraumatic intracerebral hemorrhage in brain stem; E11.65 Type 2 diabetes mellitus with hyperglycemia; N47.2 Paraphimosis; D64.9 Anemia, unspecified; R13.12 Dysphagia, oropharyngeal phase; I61.5 Nontraumatic intracerebral hemorrhage, intraventricular; E83.39 Other disorders of phosphorus metabolism; I60.8 Other nontraumatic subarachnoid hemorrhage; Z82.49 Family history of ischemic heart disease and other diseases of the circulatory system
CPT/HCPCS: 0240U; 36415; 36416; 51701; 70450; 70496; 71045; 71046; 74018; 74230; 80048; 80053; 80306; 80307; 81001; 81003; 81015; 82140; 82550; 83036; 83690; 83735; 84100; 84295; 84443; 84484; 85014; 85018; 85025; 85027; 85610; 85730; 87086; 93005; 93970; 95712; 95816; 95819; 95957; 96365; 96367; 99292; J0360; J1815; J2405; J2543; J2704; J3411; J3475; J3480; J3490; J7030; J7042; J7050; S0028